=== PATIENT | female | born 1935 | race Caucasian/White ===

== ENCOUNTER 2017-05-21 18:28 | Inpatient (IN) ==
[2017-05-21] MEDS ORDERED: ONDANSETRON 4 MG/2 ML VIAL IV STA (19:26)
[2017-05-21] MEDS ORDERED: FUROSEMIDE 40 MG/4 ML VIAL IV STA (19:26)
[2017-05-21] MEDS ORDERED: PANTOPRAZOLE 40 MG VIAL IV STA (19:26)
[2017-05-21] MEDS ORDERED: ALBUTEROL/IPRATROPIUM 3 ML NEB RESP TX STA (19:26)
[2017-05-21 19:58] LABS: Basophils % 0.3 % (0.0-0.8); Eosinophils # 0.2 10*3/uL (0.0-0.87); Eosinophils % 3.8 % (0.00-10.9); Hemoglobin 13.4 GM/DL (12.0-16.0); Immature Granulocytes % 0.3 %; Immature Granulocytes Absolute 0.02 #; Lymphocytes # 1.9 10*3/uL (1.4-4.0); Lymphocytes % 30.2 % (21.3-54.2); Mean Corpuscular HGB Conc 35.3 GM/DL (32-36); Mean Corpuscular Hemoglobin 35 PG (27-34); Mean Platelet Volume 10.8 FL (9.6-12.0); Monocytes # 1.2 10*3/uL (0.11-0.8); Monocytes % 19.9 % (1.7-12.7); Neutrophils # 2.8 10*3/uL (1.4-7.4); Neutrophils % 45.5 % (38.7-73.9); Platelet Count 120 T/CUMM (130-400); Red Cell Distribution Width 13.2 % (9.3-17.3); White Blood Count 6.1 T/CUMM (4-12)
[2017-05-21 20:04] LABS: INR 2.4
[2017-05-21 20:10] LABS: PT Patient Result 24.1 SECS
[2017-05-21 20:16] LABS: Alanine Aminotransferase 36 U/L (13-56); Albumin 4.2 G/DL (3.4-5.0); Alkaline Phosphatase 84 U/L (45-117); Aspartate Amino Transferase 49 U/L (0-37); Blood Urea Nitrogen 19 MG/DL (7-18); Calcium 8.7 MG/DL (8.5-10.1); Glucose 216 MG/DL (74-106); Magnesium 2.1 MG/DL (1.8-2.4); Osmolality,Calculated 274.4 MOS/KG (273-304); Potassium 4.1 MMOL/L (3.5-5.1); Sodium 133 MMOL/L (136-145); Total Protein 7.9 G/DL (6.4-8.3); Troponin I Only < 0.015 NG/ML (0.00-0.045)
[2017-05-21] MEDS ORDERED: PANTOPRAZOLE 40 MG VIAL IV ONE (21:28)
[2017-05-21] MEDS ORDERED: FUROSEMIDE 20 MG/2 ML VIAL ONE (21:28)
[2017-05-21] MEDS ORDERED: ONDANSETRON 4 MG/2 ML VIAL ONE (21:28)
[2017-05-21] MEDS ORDERED: FUROSEMIDE 40 MG/4 ML VIAL ONE (21:28)
[2017-05-21 22:04] LABS: Eosinophils 3 % (0-10); Lymphocytes 33 % (20-55); Metamyelocytes 1 %; Myelocytes 1 %; Platelet Estimate Decreased; Polychromasia Few; Segmented Neutrophils 54 % (50-85); Total Cells Counted 100
[2017-05-22] MEDS ORDERED: GLUCAGON 1 MG VIAL IM PRN ×2 (02:04→10:42)
[2017-05-22] MEDS ORDERED: DEXTROSE 50% 25 GM/50 ML VIAL IV PRN ×2 (02:04→10:42)
[2017-05-22] MEDS: INSULIN GLARGINE 100 UNIT/ML SUBCUT SCH ×2 (06:21→22:07)
[2017-05-22] MEDS: SODIUM CHLORIDE 0.9% 1,000 ML IV SCH ×2 (06:23→19:46)
[2017-05-22] MEDS: INSULIN LISPRO 100 UNIT/ML SUBCUT SCH ×3 (07:07→18:01)
[2017-05-22] MEDS: FUROSEMIDE 40 MG/4 ML VIAL IV SCH (09:02)
[2017-05-22] MEDS: PANTOPRAZOLE 40 MG VIAL IV SCH (09:03)
[2017-05-22 09:50] LABS: Hematocrit 35.1 VOL% (35.7-47.0); Hemoglobin 12.4 GM/DL (12.0-16.0)
[2017-05-23] MEDS: INSULIN LISPRO 100 UNIT/ML SUBCUT SCH ×3 (02:29→13:35)
[2017-05-23 05:01] LABS: Basophils % 0.1 % (0.0-0.8); Eosinophils # 0.2 10*3/uL (0.0-0.87); Eosinophils % 3.5 % (0.00-10.9); Hematocrit 31.1 VOL% (35.7-47.0); Hemoglobin 10.9 GM/DL (12.0-16.0); Immature Granulocytes % 0.4 %; Immature Granulocytes Absolute 0.03 #; Lymphocytes # 1.9 10*3/uL (1.4-4.0); Lymphocytes % 27.8 % (21.3-54.2); Mean Corpuscular Hemoglobin 36 PG (27-34); Monocytes # 1.7 10*3/uL (0.11-0.8); Monocytes % 24.6 % (1.7-12.7); Neutrophils % 43.6 % (38.7-73.9); Platelet Count 114 T/CUMM (130-400); Red Blood Count 3.05 MC/CUMM (3.8-5.5); Red Cell Distribution Width 13.3 % (9.3-17.3); White Blood Count 6.9 T/CUMM (4-12)
[2017-05-23 05:33] LABS: Calcium 8.4 MG/DL (8.5-10.1); Osmolality,Calculated 281.4 MOS/KG (273-304); Potassium 3.6 MMOL/L (3.5-5.1)
[2017-05-23 07:11] LABS: Anisocytosis Slight; Band Neutrophils 1 % (0-10); Eosinophils 1 % (0-10); Lymphocytes 31 % (20-55); Macrocytosis Slight; Platelet Estimate Decreased; Segmented Neutrophils 42 % (50-85); Total Cells Counted 100
[2017-05-23] MEDS: PANTOPRAZOLE 40 MG VIAL IV SCH (09:15)
[2017-05-23] MEDS: FUROSEMIDE 40 MG/4 ML VIAL IV SCH (09:18)
[2017-05-23] MEDS: SODIUM CHLORIDE 0.9% 1,000 ML IV SCH (09:25)
[2017-05-29 21:08] VITALS: BP 167/84
== END 2017-05-23 17:15 | disposition home or self-care (01) | DRG 813 ==
LOC: N.ED 18:28 → SUATTDRO 05-22 → N.EDINP 05-22 → N.2E 05-22 01:37
PROVIDERS: ADMIT Internal Medicine Infectious Disease; ATTEND Internal Medicine

== ENCOUNTER 2017-06-25 01:30 | Inpatient (IN) ==
[2017-06-25] MEDS ORDERED: ONDANSETRON 4 MG/2 ML VIAL IV STA (02:15)
[2017-06-25] MEDS ORDERED: ONDANSETRON 4 MG/2 ML VIAL ONE (02:39)
[2017-06-25 02:43] LABS: Basophils % 0.1 % (0.0-0.8); Eosinophils # 0.1 10*3/uL (0.0-0.87); Hematocrit 29.9 VOL% (35.7-47.0); Hemoglobin 11.5 GM/DL (12.0-16.0); Immature Granulocytes % 0.9 %; Lymphocytes % 18.6 % (21.3-54.2); Mean Corpuscular HGB Conc 38.5 GM/DL (32-36); Mean Corpuscular Hemoglobin 35 PG (27-34); Mean Corpuscular Volume 90.9 FL (87-102); Mean Platelet Volume 10.8 FL (9.6-12.0); Monocytes # 1.5 10*3/uL (0.11-0.8); Monocytes % 14.3 % (1.7-12.7); Neutrophils % 65.1 % (38.7-73.9); Platelet Count 145 T/CUMM (130-400); Red Blood Count 3.29 MC/CUMM (3.8-5.5); Red Cell Distribution Width 12.5 % (9.3-17.3); White Blood Count 10.8 T/CUMM (4-12)
[2017-06-25 03:12] LABS: Albumin 4.2 G/DL (3.4-5.0); Calcium 8.7 MG/DL (8.5-10.1); Osmolality,Calculated 249.5 MOS/KG (273-304); Potassium 3.1 MMOL/L (3.5-5.1); Total Protein 7.9 G/DL (6.4-8.3); Troponin I Only 0.036 NG/ML (0.00-0.045)
[2017-06-25] MEDS ORDERED: SODIUM CHLORIDE 0.9% 1,000 ML IV STA (03:41)
[2017-06-25] MEDS ORDERED: FUROSEMIDE 40 MG/4 ML VIAL IV STA (04:28)
[2017-06-25] MEDS ORDERED: FUROSEMIDE 40 MG/4 ML VIAL ONE (04:32)
[2017-06-25] MEDS ORDERED: ONDANSETRON 4 MG/2 ML VIAL IV PRN (04:45)
[2017-06-25] MEDS ORDERED: GLUCAGON 1 MG VIAL IM PRN (04:45)
[2017-06-25] MEDS ORDERED: DEXTROSE 50% 25 GM/50 ML VIAL IV PRN (04:45)
[2017-06-25] MEDS ORDERED: NITROGLYCERIN SL 0.4 MG TABLET SL PRN (04:54)
[2017-06-25] MEDS ORDERED: POTASSIUM CHLORIDE 20 MEQ TABLET PO ONE ×2 (04:57→05:03)
[2017-06-25 05:50] LABS: Apearance,Urine CLEAR (Clear); Bilirubin,Urine Negative (Negative); Blood, Urine Small mg/dL (Negative); Glucose,Urine (UA) 50 mg/dL (Negative); Ketones,Urine Negative (Negative); Mucus,Urine Occasional /LPF (Occasional); Nitrite,Urine Negative (Negative); Protein,Urine Negative; RBC,Urine <1 /HPF (0-4); Urine Color Straw (Yellow); Urine Specific Gravity 1.013 (1.001-1.035); Urine Urobilinogen < 2.0 EU/DL (0.2-1.0); WBC,Urine <1 /HPF (0-6)
[2017-06-25 09:00] LABS: Basophils % 0.1 % (0.0-0.8); Eosinophils # 0.1 10*3/uL (0.0-0.87); Eosinophils % 0.9 % (0.00-10.9); Hemoglobin 12.2 GM/DL (12.0-16.0); Immature Granulocytes % 0.6 %; Immature Granulocytes Absolute 0.06 #; Lymphocytes # 1.5 10*3/uL (1.4-4.0); Lymphocytes % 15.9 % (21.3-54.2); Mean Corpuscular HGB Conc 38.1 GM/DL (32-36); Mean Corpuscular Hemoglobin 35 PG (27-34); Mean Corpuscular Volume 91.2 FL (87-102); Mean Platelet Volume 10.3 FL (9.6-12.0); Monocytes # 1.7 10*3/uL (0.11-0.8); Monocytes % 17.1 % (1.7-12.7); Neutrophils # 6.3 10*3/uL (1.4-7.4); Neutrophils % 65.4 % (38.7-73.9); Platelet Count 139 T/CUMM (130-400); Red Blood Count 3.51 MC/CUMM (3.8-5.5); Red Cell Distribution Width 12.6 % (9.3-17.3); White Blood Count 9.6 T/CUMM (4-12)
[2017-06-25 09:06] LABS: INR 2.9
[2017-06-25 09:11] LABS: PT Patient Result 29.4 SECS
[2017-06-25 09:24] LABS: Eosinophils 1 % (0-10); Hypochromasia 1+; Lymphocytes 11 % (20-55); Macrocytosis 1+; Platelet Estimate Decreased; Segmented Neutrophils 77 % (50-85); Total Cells Counted 100
[2017-06-25] MEDS: INSULIN LISPRO 100 UNIT/ML SUBCUT SCH ×4 (09:35→21:47)
[2017-06-25] MEDS: ASCORBIC ACID 500 MG TABLET PO SCH (09:37)
[2017-06-25] MEDS: GLIMEPIRIDE 4 MG TABLET PO SCH (09:37)
[2017-06-25] MEDS: ASPIRIN EC 81 MG TABLET PO SCH (09:37)
[2017-06-25] MEDS: CARVEDILOL 12.5 MG TABLET PO SCH (09:37)
[2017-06-25] MEDS: PANTOPRAZOLE 40 MG TABLET PO SCH (09:37)
[2017-06-25 09:49] LABS: Calcium 9.2 MG/DL (8.5-10.1); Free T4 (Free Thyroxine) 1.64 NG/DL (0.76-1.46); Magnesium 1.8 MG/DL (1.8-2.4); Osmolality,Calculated 249.5 MOS/KG (273-304); Potassium 3.6 MMOL/L (3.5-5.1); Thyroid Stimulating Hormone 0.716 uIU/ml (0.358-3.74)
[2017-06-25] MEDS ORDERED: FUROSEMIDE 40 MG/4 ML VIAL IV SCH (16:00)
[2017-06-25] MEDS: WARFARIN 5 MG TABLET PO SCH (17:34)
[2017-06-25] MEDS: SODIUM CHLOR 0.9% KCL 20 MEQ 20 MEQ/1,000 ML BAG IV SCH (17:34)
[2017-06-25] MEDS: ATORVASTATIN 40 MG TABLET PO SCH (21:47)
[2017-06-25] MEDS: INSULIN GLARGINE 100 UNIT/ML SUBCUT SCH (21:47)
[2017-06-25] MEDS: LOSARTAN 50 MG TABLET PO SCH (21:48)
[2017-06-26] MEDS: SODIUM CHLOR 0.9% KCL 20 MEQ 20 MEQ/1,000 ML BAG IV SCH ×3 (06:23→22:09)
[2017-06-26 08:11] LABS: Osmolality,Calculated 268.4 MOS/KG (273-304)
[2017-06-26 08:20] LABS: Potassium 6.7 MMOL/L (3.5-5.1)
[2017-06-26] MEDS ORDERED: FUROSEMIDE 40 MG/4 ML VIAL IV ONE (08:36)
[2017-06-26] MEDS: CARVEDILOL 12.5 MG TABLET PO SCH (08:44)
[2017-06-26] MEDS: PANTOPRAZOLE 40 MG TABLET PO SCH (08:45)
[2017-06-26] MEDS: ASPIRIN EC 81 MG TABLET PO SCH (08:45)
[2017-06-26] MEDS: ASCORBIC ACID 500 MG TABLET PO SCH (08:45)
[2017-06-26] MEDS: GLIMEPIRIDE 4 MG TABLET PO SCH (08:45)
[2017-06-26] MEDS ORDERED: FUROSEMIDE 40 MG/4 ML VIAL IV SCH (09:00)
[2017-06-26] MEDS ORDERED: SODIUM CHLORIDE 0.9% 1,000 ML IV SCH (09:00)
[2017-06-26 09:04] LABS: Calcium 8.8 MG/DL (8.5-10.1); Osmolality,Calculated 259.2 MOS/KG (273-304); Potassium 3.9 MMOL/L (3.5-5.1)
[2017-06-26] MEDS: INSULIN LISPRO 100 UNIT/ML SUBCUT SCH ×4 (10:46→22:00)
[2017-06-26 10:48] LABS: INR 2.7
[2017-06-26 10:56] LABS: PT Patient Result 27.3 SECS
[2017-06-26] MEDS: WARFARIN 5 MG TABLET PO SCH (17:04)
[2017-06-26] MEDS: INSULIN GLARGINE 100 UNIT/ML SUBCUT SCH (21:59)
[2017-06-26] MEDS: LOSARTAN 50 MG TABLET PO SCH (21:59)
[2017-06-26] MEDS: ATORVASTATIN 40 MG TABLET PO SCH (21:59)
[2017-06-27] MEDS: SODIUM CHLOR 0.9% KCL 20 MEQ 20 MEQ/1,000 ML BAG IV SCH ×3 (00:39→12:30)
[2017-06-27 05:02] LABS: Basophils % 0.3 % (0.0-0.8); Eosinophils # 0.2 10*3/uL (0.0-0.87); Eosinophils % 2.6 % (0.00-10.9); Hematocrit 26.8 VOL% (35.7-47.0); Hemoglobin 9.7 GM/DL (12.0-16.0); Immature Granulocytes % 0.7 %; Immature Granulocytes Absolute 0.05 #; Lymphocytes # 1.8 10*3/uL (1.4-4.0); Lymphocytes % 24.2 % (21.3-54.2); Mean Corpuscular HGB Conc 36.2 GM/DL (32-36); Mean Corpuscular Hemoglobin 35 PG (27-34); Mean Corpuscular Volume 96.4 FL (87-102); Mean Platelet Volume 10.8 FL (9.6-12.0); Monocytes # 1.7 10*3/uL (0.11-0.8); Monocytes % 23.2 % (1.7-12.7); Neutrophils # 3.6 10*3/uL (1.4-7.4); Platelet Count 113 T/CUMM (130-400); Red Blood Count 2.78 MC/CUMM (3.8-5.5); White Blood Count 7.4 T/CUMM (4-12)
[2017-06-27 05:19] LABS: INR 2.9
[2017-06-27 05:30] LABS: Calcium 8.2 MG/DL (8.5-10.1); Osmolality,Calculated 265.7 MOS/KG (273-304); Potassium 3.5 MMOL/L (3.5-5.1)
[2017-06-27 05:31] LABS: Calcium 8.3 MG/DL (8.5-10.1); Magnesium 1.9 MG/DL (1.8-2.4); Osmolality,Calculated 260.9 MOS/KG (273-304); Potassium 3.6 MMOL/L (3.5-5.1)
[2017-06-27 06:14] LABS: PT Patient Result 29.9 SECS
[2017-06-27 06:36] LABS: Eosinophils 1 % (0-10); Hypochromasia 1+; Lymphocytes 21 % (20-55); Platelet Estimate Decreased; Segmented Neutrophils 62 % (50-85); Total Cells Counted 100
[2017-06-27] MEDS: INSULIN LISPRO 100 UNIT/ML SUBCUT SCH ×4 (08:22→21:43)
[2017-06-27] MEDS: CARVEDILOL 12.5 MG TABLET PO SCH (08:58)
[2017-06-27] MEDS: FUROSEMIDE 40 MG/4 ML VIAL IV SCH (08:58)
[2017-06-27] MEDS: PANTOPRAZOLE 40 MG TABLET PO SCH (08:58)
[2017-06-27] MEDS: ASCORBIC ACID 500 MG TABLET PO SCH (08:58)
[2017-06-27] MEDS: GLIMEPIRIDE 4 MG TABLET PO SCH (08:58)
[2017-06-27] MEDS: ASPIRIN EC 81 MG TABLET PO SCH (08:58)
[2017-06-27] MEDS: POTASSIUM CHLORIDE 20 MEQ TABLET PO SCH ×2 (09:51→21:45)
[2017-06-27] MEDS: LOSARTAN 50 MG TABLET PO SCH (21:45)
[2017-06-27] MEDS: INSULIN GLARGINE 100 UNIT/ML SUBCUT SCH (21:45)
[2017-06-27] MEDS: ATORVASTATIN 40 MG TABLET PO SCH (21:45)
[2017-06-28] MEDS: SODIUM CHLOR 0.9% KCL 20 MEQ 20 MEQ/1,000 ML BAG IV SCH (00:20)
[2017-06-28 06:09] LABS: INR 2.4
[2017-06-28 06:16] LABS: Basophils % 0.2 % (0.0-0.8); Eosinophils # 0.2 10*3/uL (0.0-0.87); Eosinophils % 4.3 % (0.00-10.9); Hematocrit 25.4 VOL% (35.7-47.0); Hemoglobin 9.1 GM/DL (12.0-16.0); Immature Granulocytes % 0.7 %; Immature Granulocytes Absolute 0.04 #; Lymphocytes # 1.5 10*3/uL (1.4-4.0); Lymphocytes % 28.1 % (21.3-54.2); Mean Corpuscular HGB Conc 35.8 GM/DL (32-36); Mean Corpuscular Hemoglobin 35 PG (27-34); Mean Corpuscular Volume 98.8 FL (87-102); Mean Platelet Volume 10.9 FL (9.6-12.0); Monocytes # 1.2 10*3/uL (0.11-0.8); Monocytes % 21.6 % (1.7-12.7); Neutrophils # 2.4 10*3/uL (1.4-7.4); Neutrophils % 45.1 % (38.7-73.9); Platelet Count 115 T/CUMM (130-400); Red Blood Count 2.57 MC/CUMM (3.8-5.5); Red Cell Distribution Width 13.3 % (9.3-17.3); White Blood Count 5.4 T/CUMM (4-12)
[2017-06-28 06:17] LABS: Magnesium 1.8 MG/DL (1.8-2.4); Osmolality,Calculated 271.1 MOS/KG (273-304); Potassium 3.8 MMOL/L (3.5-5.1)
[2017-06-28 06:26] LABS: PT Patient Result 24.4 SECS
[2017-06-28 07:38] LABS: Atypical Lymphocytes Moderate; Band Neutrophils 1 % (0-10); Eosinophils 5 % (0-10); Hypochromasia 1+; Lymphocytes 25 % (20-55); Segmented Neutrophils 52 % (50-85); Total Cells Counted 100
[2017-06-28 07:39] LABS: Platelet Estimate Decreased; Polychromasia Slight
[2017-06-28] MEDS: INSULIN LISPRO 100 UNIT/ML SUBCUT SCH ×4 (08:00→21:56)
[2017-06-28] MEDS: PANTOPRAZOLE 40 MG TABLET PO SCH (10:13)
[2017-06-28] MEDS: GLIMEPIRIDE 4 MG TABLET PO SCH (10:13)
[2017-06-28] MEDS: POTASSIUM CHLORIDE 20 MEQ TABLET PO SCH ×2 (10:13→21:52)
[2017-06-28] MEDS: FUROSEMIDE 40 MG/4 ML VIAL IV SCH (10:13)
[2017-06-28] MEDS: CARVEDILOL 12.5 MG TABLET PO SCH (10:13)
[2017-06-28] MEDS: ASPIRIN EC 81 MG TABLET PO SCH (10:14)
[2017-06-28] MEDS: LOSARTAN 50 MG TABLET PO SCH (21:51)
[2017-06-28] MEDS: ATORVASTATIN 40 MG TABLET PO SCH (21:52)
[2017-06-28] MEDS: INSULIN GLARGINE 100 UNIT/ML SUBCUT SCH (21:56)
[2017-06-29 05:45] LABS: Basophils % 0.3 % (0.0-0.8); Eosinophils # 0.3 10*3/uL (0.0-0.87); Eosinophils % 3.9 % (0.00-10.9); Hematocrit 28.3 VOL% (35.7-47.0); INR 1.8; Immature Granulocytes % 0.5 %; Immature Granulocytes Absolute 0.04 #; Lymphocytes # 2.2 10*3/uL (1.4-4.0); Lymphocytes % 29.2 % (21.3-54.2); Mean Corpuscular HGB Conc 35.3 GM/DL (32-36); Mean Corpuscular Hemoglobin 35 PG (27-34); Mean Corpuscular Volume 99.3 FL (87-102); Mean Platelet Volume 10.7 FL (9.6-12.0); Monocytes # 1.5 10*3/uL (0.11-0.8); Monocytes % 20.5 % (1.7-12.7); Neutrophils # 3.4 10*3/uL (1.4-7.4); Neutrophils % 45.6 % (38.7-73.9); PT Patient Result 18.7 SECS; Platelet Count 135 T/CUMM (130-400); Red Blood Count 2.85 MC/CUMM (3.8-5.5); Red Cell Distribution Width 13.2 % (9.3-17.3); White Blood Count 7.4 T/CUMM (4-12)
[2017-06-29 06:10] LABS: Calcium 8.9 MG/DL (8.5-10.1); Magnesium 1.9 MG/DL (1.8-2.4); Osmolality,Calculated 268.2 MOS/KG (273-304); Potassium 3.7 MMOL/L (3.5-5.1)
[2017-06-29 06:26] LABS: Atypical Lymphocytes Few; Eosinophils 7 % (0-10); Giant Platelets Few; Hypochromasia 1+; Lymphocytes 23 % (20-55); Ovalocytes Slight; Platelet Estimate Normal; Segmented Neutrophils 54 % (50-85); Total Cells Counted 100
[2017-06-29 07:00] LABS: Albumin 3.4 G/DL (3.4-5.0); Bilirubin,Total 0.8 MG/DL (0.2-1.0); Calcium 8.7 MG/DL (8.5-10.1); Osmolality,Calculated 267.4 MOS/KG (273-304); Potassium 3.7 MMOL/L (3.5-5.1); Total Protein 6.7 G/DL (6.4-8.3)
[2017-06-29] MEDS: INSULIN LISPRO 100 UNIT/ML SUBCUT SCH ×3 (08:03→17:15)
[2017-06-29] MEDS: ASPIRIN EC 81 MG TABLET PO SCH (08:38)
[2017-06-29] MEDS: GLIMEPIRIDE 4 MG TABLET PO SCH (08:38)
[2017-06-29] MEDS: POTASSIUM CHLORIDE 20 MEQ TABLET PO SCH (08:38)
[2017-06-29] MEDS: CARVEDILOL 12.5 MG TABLET PO SCH (08:38)
[2017-06-29] MEDS: PANTOPRAZOLE 40 MG TABLET PO SCH (08:38)
[2017-06-29] MEDS: FUROSEMIDE 40 MG/4 ML VIAL IV SCH (08:38)
[2017-06-29 17:01] VITALS: BP 109/59
== END 2017-06-29 17:18 | disposition home or self-care (01) | DRG 292 ==
LOC: N.ED 01:30 → SUATTDRO 04:44 → N.EDINP 04:44 → N.TELES 05:01
PROVIDERS: ADMIT Internal Medicine; ATTEND Internal Medicine

== ENCOUNTER 2017-07-11 07:36 | Inpatient (IN) ==
[2017-07-11] MEDS ORDERED: ONDANSETRON 4 MG/2 ML VIAL IV STA (07:59)
[2017-07-11] MEDS ORDERED: ONDANSETRON 4 MG/2 ML VIAL ONE ×2 (08:38→12:34)
[2017-07-11 09:26] LABS: Bilirubin,Total 1.5 MG/DL (0.2-1.0); Osmolality,Calculated 249.2 MOS/KG (273-304); Potassium 3.1 MMOL/L (3.5-5.1); Total Protein 8.7 G/DL (6.4-8.3)
[2017-07-11 09:29] LABS: Calcium 9.5 MG/DL (8.5-10.1)
[2017-07-11] MEDS ORDERED: SODIUM CHLORIDE 0.9% 1,000 ML IV STA (09:38)
[2017-07-11 09:43] LABS: Troponin I Only 0.015 NG/ML (0.00-0.045)
[2017-07-11 10:20] LABS: Basophils % 0.2 % (0.0-0.8); Eosinophils # 0.2 10*3/uL (0.0-0.87); Eosinophils % 1.6 % (0.00-10.9); Hematocrit 31.6 VOL% (35.7-47.0); Hemoglobin 11.6 GM/DL (12.0-16.0); Immature Granulocytes % 0.9 %; Immature Granulocytes Absolute 0.08 #; Lymphocytes % 11.3 % (21.3-54.2); Mean Corpuscular HGB Conc 36.7 GM/DL (32-36); Mean Corpuscular Hemoglobin 35 PG (27-34); Mean Corpuscular Volume 94.6 FL (87-102); Mean Platelet Volume 10.1 FL (9.6-12.0); Monocytes # 2.4 10*3/uL (0.11-0.8); Monocytes % 26.1 % (1.7-12.7); Neutrophils # 5.5 10*3/uL (1.4-7.4); Neutrophils % 59.9 % (38.7-73.9); Platelet Count 171 T/CUMM (130-400); Red Blood Count 3.34 MC/CUMM (3.8-5.5); White Blood Count 9.2 T/CUMM (4-12)
[2017-07-11 11:08] LABS: Burr Cells Slight; Hypochromasia 2+; Lymphocytes 13 % (20-55); Macrocytosis 1+; Platelet Estimate Adequate; Segmented Neutrophils 64 % (50-85); Total Cells Counted 100
[2017-07-11] MEDS ORDERED: ONDANSETRON 4 MG/2 ML VIAL IV PRN (11:19)
[2017-07-11] MEDS ORDERED: POTASSIUM CHLORIDE 20 MEQ TABLET PO ONE (12:06)
[2017-07-11] MEDS ORDERED: PANTOPRAZOLE 40 MG TABLET PO ONE (12:06)
[2017-07-11] MEDS: POTASSIUM CHLORIDE 20 MEQ TABLET PO PRN (12:10)
[2017-07-11] MEDS: PANTOPRAZOLE 40 MG TABLET PO SCH (12:10)
[2017-07-11] MEDS: SODIUM CHLORIDE 0.9% 1,000 ML IV SCH (16:51)
[2017-07-11] MEDS: INSULIN GLARGINE 100 UNIT/ML SUBCUT SCH (20:40)
[2017-07-11] MEDS: ATORVASTATIN 40 MG TABLET PO SCH (20:41)
[2017-07-12] MEDS: SODIUM CHLORIDE 0.9% 1,000 ML IV SCH (00:02)
[2017-07-12 06:36] LABS: Basophils % 0.2 % (0.0-0.8); Eosinophils % 0.4 % (0.00-10.9); Hematocrit 27.6 VOL% (35.7-47.0); Hemoglobin 9.8 GM/DL (12.0-16.0); Immature Granulocytes % 0.9 %; Immature Granulocytes Absolute 0.07 #; Lymphocytes % 12.3 % (21.3-54.2); Mean Corpuscular HGB Conc 35.5 GM/DL (32-36); Mean Corpuscular Hemoglobin 34 PG (27-34); Mean Corpuscular Volume 95.8 FL (87-102); Mean Platelet Volume 10.9 FL (9.6-12.0); Monocytes # 2.7 10*3/uL (0.11-0.8); Monocytes % 33.6 % (1.7-12.7); Neutrophils # 4.2 10*3/uL (1.4-7.4); Neutrophils % 52.6 % (38.7-73.9); Platelet Count 131 T/CUMM (130-400); Red Blood Count 2.88 MC/CUMM (3.8-5.5); Red Cell Distribution Width 13.2 % (9.3-17.3)
[2017-07-12 06:45] LABS: INR 2.4
[2017-07-12 06:57] LABS: Calcium 8.6 MG/DL (8.5-10.1); Osmolality,Calculated 255.4 MOS/KG (273-304); Potassium 3.2 MMOL/L (3.5-5.1)
[2017-07-12] MEDS ORDERED: MAGNESIUM SULF RIDER 4 GM in PREMIX 1 EACH IV ONE (08:18)
[2017-07-12] MEDS: PANTOPRAZOLE 40 MG TABLET PO SCH (09:38)
[2017-07-12] MEDS: POTASSIUM CHLORIDE 20 MEQ/15 ML UDCUP PER TUBE PRN ×5 (09:38→21:38)
[2017-07-12] MEDS: LOSARTAN 50 MG TABLET PO SCH (09:39)
[2017-07-12] MEDS: CARVEDILOL 12.5 MG TABLET PO SCH (09:39)
[2017-07-12] MEDS: FUROSEMIDE 40 MG TABLET PO SCH (09:39)
[2017-07-12] MEDS: ASPIRIN EC 81 MG TABLET PO SCH (09:39)
[2017-07-12] MEDS ORDERED: MAGNESIUM SULF RIDER 2 GM in PREMIX 1 EACH IV PRN (11:17)
[2017-07-12] MEDS ORDERED: MAGNESIUM SULF RIDER 4 GM in PREMIX 1 EACH IV PRN (11:17)
[2017-07-12 11:57] LABS: Hypochromasia 1+; Lymphocytes 10 % (20-55); Platelet Estimate Decreased; Segmented Neutrophils 71 % (50-85); Spherocytes Few; Total Cells Counted 100
[2017-07-12] MEDS ORDERED: FUROSEMIDE 20 MG TABLET PO SCH (18:00)
[2017-07-12] MEDS: WARFARIN 5 MG TABLET PO SCH (18:30)
[2017-07-12] MEDS: ATORVASTATIN 40 MG TABLET PO SCH (21:37)
[2017-07-12] MEDS: guaiFENesin 200 MG/10 ML UDCUP PO PRN (21:37)
[2017-07-12] MEDS: INSULIN GLARGINE 100 UNIT/ML SUBCUT SCH (21:38)
[2017-07-12] MEDS: POTASSIUM CHLORIDE 20 MEQ TABLET PO PRN (23:45)
[2017-07-13] MEDS: POTASSIUM CHLORIDE 20 MEQ TABLET PO PRN (01:53)
[2017-07-13 06:39] LABS: Basophils % 0.2 % (0.0-0.8); Eosinophils # 0.1 10*3/uL (0.0-0.87); Eosinophils % 1.4 % (0.00-10.9); Hematocrit 26.9 VOL% (35.7-47.0); Hemoglobin 9.9 GM/DL (12.0-16.0); Immature Granulocytes % 0.6 %; Immature Granulocytes Absolute 0.04 #; Lymphocytes # 1.4 10*3/uL (1.4-4.0); Lymphocytes % 21.1 % (21.3-54.2); Mean Corpuscular HGB Conc 36.8 GM/DL (32-36); Mean Corpuscular Hemoglobin 35 PG (27-34); Mean Corpuscular Volume 95.7 FL (87-102); Mean Platelet Volume 10.8 FL (9.6-12.0); Monocytes # 2.3 10*3/uL (0.11-0.8); Monocytes % 36.2 % (1.7-12.7); Neutrophils # 2.6 10*3/uL (1.4-7.4); Neutrophils % 40.5 % (38.7-73.9); Platelet Count 121 T/CUMM (130-400); Red Blood Count 2.81 MC/CUMM (3.8-5.5); Red Cell Distribution Width 13.7 % (9.3-17.3); White Blood Count 6.5 T/CUMM (4-12)
[2017-07-13 07:16] LABS: Calcium 8.6 MG/DL (8.5-10.1); Osmolality,Calculated 255.4 MOS/KG (273-304); Potassium 4.1 MMOL/L (3.5-5.1)
[2017-07-13 07:32] LABS: Band Neutrophils 3 % (0-10); Eosinophils 1 % (0-10); Lymphocytes 41 % (20-55); Segmented Neutrophils 49 % (50-85); Total Cells Counted 100
[2017-07-13 07:33] LABS: Macrocytosis 1+; Platelet Estimate Normal
[2017-07-13] MEDS: PANTOPRAZOLE 40 MG TABLET PO SCH (10:47)
[2017-07-13] MEDS: FUROSEMIDE 40 MG TABLET PO SCH (10:47)
[2017-07-13] MEDS: ASPIRIN EC 81 MG TABLET PO SCH (10:47)
[2017-07-13] MEDS: CARVEDILOL 12.5 MG TABLET PO SCH (10:47)
[2017-07-13] MEDS: LOSARTAN 50 MG TABLET PO SCH (10:51)
[2017-07-13] MEDS: guaiFENesin 200 MG/10 ML UDCUP PO PRN (13:45)
[2017-07-13] MEDS: WARFARIN 5 MG TABLET PO SCH (18:36)
[2017-07-13] MEDS: SODIUM CHLORIDE 0.9% 1,000 ML IV SCH (18:42)
[2017-07-13 21:40] LABS: Apearance,Urine CLOUDY (Clear); Bacteria,Urine Many /HPF (Few); Bilirubin,Urine Negative (Negative); Blood, Urine Large mg/dL (Negative); Glucose,Urine (UA) Negative (Negative); Ketones,Urine Negative (Negative); Nitrite,Urine Negative (Negative); Protein,Urine 100 MG/DL; RBC,Urine 126 /HPF (0-4); Urine Color Dark yellow (Yellow); Urine Specific Gravity 1.009 (1.001-1.035); Urine Urobilinogen < 2.0 EU/DL (0.2-1.0); WBC,Urine 759 /HPF (0-6)
[2017-07-13] MEDS: INSULIN GLARGINE 100 UNIT/ML SUBCUT SCH (22:26)
[2017-07-13] MEDS: ATORVASTATIN 40 MG TABLET PO SCH (22:26)
[2017-07-14 06:49] LABS: Basophils % 0.3 % (0.0-0.8); Eosinophils # 0.2 10*3/uL (0.0-0.87); Eosinophils % 3.8 % (0.00-10.9); Hematocrit 29.6 VOL% (35.7-47.0); Hemoglobin 10.4 GM/DL (12.0-16.0); Immature Granulocytes % 0.5 %; Immature Granulocytes Absolute 0.03 #; Lymphocytes # 1.1 10*3/uL (1.4-4.0); Lymphocytes % 18.1 % (21.3-54.2); Mean Corpuscular HGB Conc 35.1 GM/DL (32-36); Mean Corpuscular Hemoglobin 34 PG (27-34); Mean Platelet Volume 10.8 FL (9.6-12.0); Monocytes # 1.9 10*3/uL (0.11-0.8); Monocytes % 31.1 % (1.7-12.7); Neutrophils # 2.8 10*3/uL (1.4-7.4); Neutrophils % 46.2 % (38.7-73.9); Platelet Count 134 T/CUMM (130-400); Red Blood Count 3.05 MC/CUMM (3.8-5.5); Red Cell Distribution Width 13.5 % (9.3-17.3)
[2017-07-14 07:18] LABS: Calcium 8.7 MG/DL (8.5-10.1); Magnesium 1.9 MG/DL (1.8-2.4); Osmolality,Calculated 259.9 MOS/KG (273-304); Potassium 3.3 MMOL/L (3.5-5.1)
[2017-07-14 07:23] LABS: Lymphocytes 15 % (20-55); Segmented Neutrophils 56 % (50-85); Total Cells Counted 100
[2017-07-14 07:24] LABS: Hypochromasia 1+; Platelet Estimate Adequate; Target Cells Slight
[2017-07-14] MEDS: PANTOPRAZOLE 40 MG TABLET PO SCH (10:48)
[2017-07-14] MEDS: ASPIRIN EC 81 MG TABLET PO SCH (10:49)
[2017-07-14] MEDS: CARVEDILOL 12.5 MG TABLET PO SCH (10:49)
[2017-07-14] MEDS: WARFARIN 5 MG TABLET PO SCH (17:10)
[2017-07-14] MEDS: SODIUM CHLORIDE 0.9% 1,000 ML IV SCH ×2 (17:11→17:12)
[2017-07-14] MEDS: INSULIN GLARGINE 100 UNIT/ML SUBCUT SCH (21:58)
[2017-07-14] MEDS: ATORVASTATIN 40 MG TABLET PO SCH (21:58)
[2017-07-15 06:16] LABS: Basophils % 0.4 % (0.0-0.8); Eosinophils # 0.2 10*3/uL (0.0-0.87); Eosinophils % 4.7 % (0.00-10.9); Hematocrit 30.1 VOL% (35.7-47.0); Hemoglobin 10.6 GM/DL (12.0-16.0); Immature Granulocytes % 0.8 %; Immature Granulocytes Absolute 0.04 #; Lymphocytes # 1.3 10*3/uL (1.4-4.0); Lymphocytes % 26.6 % (21.3-54.2); Mean Corpuscular HGB Conc 35.2 GM/DL (32-36); Mean Corpuscular Hemoglobin 34 PG (27-34); Mean Corpuscular Volume 96.8 FL (87-102); Mean Platelet Volume 10.7 FL (9.6-12.0); Monocytes # 1.4 10*3/uL (0.11-0.8); Monocytes % 28.9 % (1.7-12.7); Neutrophils # 1.9 10*3/uL (1.4-7.4); Neutrophils % 38.6 % (38.7-73.9); Platelet Count 141 T/CUMM (130-400); Red Blood Count 3.11 MC/CUMM (3.8-5.5); Red Cell Distribution Width 13.9 % (9.3-17.3); White Blood Count 4.9 T/CUMM (4-12)
[2017-07-15 06:41] LABS: Calcium 8.8 MG/DL (8.5-10.1); Osmolality,Calculated 267.4 MOS/KG (273-304); Potassium 3.6 MMOL/L (3.5-5.1)
[2017-07-15 06:44] LABS: Band Neutrophils 1 % (0-10); Eosinophils 6 % (0-10); Hypochromasia 1+; Lymphocytes 27 % (20-55); Segmented Neutrophils 44 % (50-85); Total Cells Counted 100
[2017-07-15 06:45] LABS: Platelet Estimate Adequate
[2017-07-15] MEDS: CARVEDILOL 12.5 MG TABLET PO SCH (08:55)
[2017-07-15] MEDS: SODIUM CHLORIDE 0.9% 1,000 ML IV SCH ×2 (08:55→12:17)
[2017-07-15] MEDS: ASPIRIN EC 81 MG TABLET PO SCH (08:55)
[2017-07-15] MEDS: PANTOPRAZOLE 40 MG TABLET PO SCH (08:55)
[2017-07-15 12:01] VITALS: BP 102/52
== END 2017-07-15 14:33 | disposition home or self-care (01) | DRG 640 ==
LOC: N.ED 07:36 → N.EDINP 10:38 → N.5E 12:44
PROVIDERS: ADMIT Internal Medicine; ATTEND Internal Medicine

== ENCOUNTER 2017-08-04 08:03 | Inpatient (IN) ==
[2017-08-04] MEDS ORDERED: PANTOPRAZOLE 40 MG VIAL IV STA (08:35)
[2017-08-04 09:07] LABS: Basophils % 0.3 % (0.0-0.8); Eosinophils # 0.3 10*3/uL (0.0-0.87); Eosinophils % 4.7 % (0.00-10.9); Hematocrit 30.8 VOL% (35.7-47.0); Hemoglobin 10.4 GM/DL (12.0-16.0); Immature Granulocytes Absolute 0.07 #; Lymphocytes # 1.3 10*3/uL (1.4-4.0); Lymphocytes % 18.1 % (21.3-54.2); Mean Corpuscular HGB Conc 33.8 GM/DL (32-36); Mean Corpuscular Hemoglobin 34 PG (27-34); Mean Platelet Volume 10.4 FL (9.6-12.0); Monocytes # 1.3 10*3/uL (0.11-0.8); Monocytes % 18.3 % (1.7-12.7); Neutrophils % 57.6 % (38.7-73.9); Platelet Count 172 T/CUMM (130-400); Red Blood Count 3.08 MC/CUMM (3.8-5.5); Red Cell Distribution Width 13.8 % (9.3-17.3)
[2017-08-04] MEDS ORDERED: PANTOPRAZOLE 40 MG VIAL IV ONE (09:08)
[2017-08-04 09:17] LABS: INR 1.4; PT Patient Result 14.1 SECS; Partial Thromboplastin Time 34.8 SECS (0-40)
[2017-08-04 09:30] LABS: Eosinophils 5 % (0-10); Hypochromasia 1+; Lymphocytes 23 % (20-55); Segmented Neutrophils 56 % (50-85); Total Cells Counted 100
[2017-08-04 09:31] LABS: Macrocytosis Slight; Platelet Estimate Adequate
[2017-08-04 09:41] LABS: Bilirubin,Total 1.3 MG/DL (0.2-1.0); Calcium 9.2 MG/DL (8.5-10.1); Osmolality,Calculated 272.4 MOS/KG (273-304); Potassium 3.9 MMOL/L (3.5-5.1); Total Protein 7.8 G/DL (6.4-8.3)
[2017-08-04] MEDS ORDERED: DEXTROSE 50% 25 GM/50 ML VIAL IV PRN (11:03)
[2017-08-04] MEDS ORDERED: GLUCAGON 1 MG VIAL IM PRN (11:03)
[2017-08-04] MEDS ORDERED: ACETAMINOPHEN 325 MG TABLET PO PRN (11:03)
[2017-08-04] MEDS: SODIUM CHLORIDE 0.9% 1,000 ML IV SCH (13:53)
[2017-08-04] MEDS: cefTRIAXone 1,000 MG in SYRINGE 1 EACH IV SCH (13:53)
[2017-08-04] MEDS: INSULIN LISPRO 100 UNIT/ML SUBCUT SCH ×3 (13:53→20:35)
[2017-08-04] MEDS: AZITHROMYCIN INJ 500 MG in SODIUM CHLORIDE 0.9% 250 ML IV SCH (13:54)
[2017-08-05] MEDS: SODIUM CHLORIDE 0.9% 1,000 ML IV SCH ×2 (03:43→20:33)
[2017-08-05 05:45] LABS: Basophils % 0.3 % (0.0-0.8); Eosinophils # 0.2 10*3/uL (0.0-0.87); Eosinophils % 2.9 % (0.00-10.9); Hematocrit 29.1 VOL% (35.7-47.0); Hemoglobin 9.8 GM/DL (12.0-16.0); Immature Granulocytes Absolute 0.06 #; Lymphocytes # 1.3 10*3/uL (1.4-4.0); Lymphocytes % 19.9 % (21.3-54.2); Mean Corpuscular HGB Conc 33.7 GM/DL (32-36); Mean Corpuscular Hemoglobin 34 PG (27-34); Mean Corpuscular Volume 101.7 FL (87-102); Mean Platelet Volume 10.7 FL (9.6-12.0); Monocytes # 1.2 10*3/uL (0.11-0.8); Monocytes % 19.4 % (1.7-12.7); Neutrophils # 3.6 10*3/uL (1.4-7.4); Neutrophils % 56.5 % (38.7-73.9); Platelet Count 146 T/CUMM (130-400); Red Blood Count 2.86 MC/CUMM (3.8-5.5); Red Cell Distribution Width 13.9 % (9.3-17.3); White Blood Count 6.3 T/CUMM (4-12)
[2017-08-05 06:06] LABS: Eosinophils 2 % (0-10); Giant Platelets Few; Hypochromasia 1+; Lymphocytes 14 % (20-55); Ovalocytes Slight; Platelet Estimate Normal; Segmented Neutrophils 66 % (50-85); Total Cells Counted 100
[2017-08-05 06:07] LABS: Macrocytosis Slight
[2017-08-05 06:16] LABS: Calcium 8.4 MG/DL (8.5-10.1); Magnesium 1.8 MG/DL (1.8-2.4); Osmolality,Calculated 281.5 MOS/KG (273-304); Potassium 3.9 MMOL/L (3.5-5.1)
[2017-08-05] MEDS: INSULIN LISPRO 100 UNIT/ML SUBCUT SCH ×4 (08:36→20:34)
[2017-08-05] MEDS: cefTRIAXone 1,000 MG in SYRINGE 1 EACH IV SCH (12:11)
[2017-08-05] MEDS: AZITHROMYCIN INJ 500 MG in SODIUM CHLORIDE 0.9% 250 ML IV SCH (13:58)
[2017-08-05] MEDS: ONDANSETRON 4 MG/2 ML VIAL IV PRN ×2 (15:50→21:16)
[2017-08-05] MEDS ORDERED: FUROSEMIDE 20 MG/2 ML VIAL IV ONE (21:30)
[2017-08-05 21:57] LABS: Basophils % 0.2 % (0.0-0.8); Eosinophils # 0.1 10*3/uL (0.0-0.87); Eosinophils % 0.6 % (0.00-10.9); Hematocrit 34.6 VOL% (35.7-47.0); Hemoglobin 11.2 GM/DL (12.0-16.0); Immature Granulocytes % 1.6 %; Lymphocytes % 23.6 % (21.3-54.2); Mean Corpuscular HGB Conc 32.4 GM/DL (32-36); Mean Corpuscular Hemoglobin 34 PG (27-34); Mean Corpuscular Volume 104.8 FL (87-102); Mean Platelet Volume 10.9 FL (9.6-12.0); Monocytes # 1.9 10*3/uL (0.11-0.8); Monocytes % 15.3 % (1.7-12.7); Neutrophils # 7.4 10*3/uL (1.4-7.4); Neutrophils % 58.7 % (38.7-73.9); Platelet Count 182 T/CUMM (130-400); Red Cell Distribution Width 14.2 % (9.3-17.3); White Blood Count 12.6 T/CUMM (4-12)
[2017-08-05] MEDS: ATORVASTATIN 40 MG TABLET PO SCH (21:58)
[2017-08-05] MEDS ORDERED: ALBUTEROL 2.5 MG/3 ML NEB RESP TX ONE (22:00)
[2017-08-05] MEDS ORDERED: LEVALBUTEROL 1.25 MG/3 ML NEB RESP TX ONE (22:00)
[2017-08-05 22:22] LABS: Alanine Aminotransferase 20 U/L (13-56); Albumin 3.9 G/DL (3.4-5.0); Alkaline Phosphatase 78 U/L (45-117); Aspartate Amino Transferase 31 U/L (0-37); Blood Urea Nitrogen 18 MG/DL (7-18); Calcium 8.7 MG/DL (8.5-10.1); Glucose 213 MG/DL (74-106); Magnesium 1.8 MG/DL (1.8-2.4); Osmolality,Calculated 282.7 MOS/KG (273-304); Potassium 4.1 MMOL/L (3.5-5.1); Sodium 138 MMOL/L (136-145); Total Protein 8.3 G/DL (6.4-8.3); Troponin I Only 0.018 NG/ML (0.00-0.045)
[2017-08-05 23:04] LABS: Amorphous Crystals,Urine Occasional /HPF (Few); Apearance,Urine Slightly Hazy (Clear); Bilirubin,Urine Negative (Negative); Blood, Urine Negative (Negative); Glucose,Urine (UA) >=500 mg/dL (Negative); Ketones,Urine 5 mg/dL (Negative); Mucus,Urine Occasional /LPF (Occasional); Nitrite,Urine Negative (Negative); Protein,Urine 30 MG/DL; RBC,Urine 1 /HPF (0-4); Squamous Epithelial Cell,Urine Occasional /HPF (0-10); Urine Color Yellow (Yellow); Urine Specific Gravity 1.011 (1.001-1.035); Urine Urobilinogen < 2.0 EU/DL (0.2-1.0); WBC,Urine 20 /HPF (0-6)
[2017-08-06 01:25] LABS: Troponin I Only 0.036 NG/ML (0.00-0.045)
[2017-08-06 06:06] LABS: Basophils % 0.2 % (0.0-0.8); Eosinophils % 0.3 % (0.00-10.9); Hematocrit 29.3 VOL% (35.7-47.0); Hemoglobin 9.7 GM/DL (12.0-16.0); Immature Granulocytes % 1.1 %; Lymphocytes # 1.6 10*3/uL (1.4-4.0); Lymphocytes % 16.6 % (21.3-54.2); Mean Corpuscular HGB Conc 33.1 GM/DL (32-36); Mean Corpuscular Hemoglobin 34 PG (27-34); Mean Corpuscular Volume 102.4 FL (87-102); Mean Platelet Volume 11.1 FL (9.6-12.0); Monocytes # 2.2 10*3/uL (0.11-0.8); Monocytes % 23.3 % (1.7-12.7); Neutrophils # 5.5 10*3/uL (1.4-7.4); Neutrophils % 58.5 % (38.7-73.9); Platelet Count 128 T/CUMM (130-400); Red Blood Count 2.86 MC/CUMM (3.8-5.5); Red Cell Distribution Width 14.2 % (9.3-17.3); White Blood Count 9.4 T/CUMM (4-12)
[2017-08-06 06:35] LABS: Band Neutrophils 2 % (0-10); Lymphocytes 13 % (20-55); Segmented Neutrophils 62 % (50-85); Total Cells Counted 100
[2017-08-06 06:36] LABS: Giant Platelets Few; Hypochromasia 1+; Ovalocytes Slight; Platelet Estimate Normal
[2017-08-06 06:47] LABS: Troponin I Only 0.039 NG/ML (0.00-0.045)
[2017-08-06] MEDS: LOSARTAN 50 MG TABLET PO SCH (08:56)
[2017-08-06] MEDS: INSULIN LISPRO 100 UNIT/ML SUBCUT SCH ×4 (08:56→21:20)
[2017-08-06] MEDS: FUROSEMIDE 40 MG TABLET PO SCH (08:56)
[2017-08-06] MEDS: CARVEDILOL 12.5 MG TABLET PO SCH (08:56)
[2017-08-06] MEDS ORDERED: POLYETHYLENE GLYCOL POWDER 17 GM PACK PO PRN (09:00)
[2017-08-06] MEDS: AZITHROMYCIN INJ 500 MG in SODIUM CHLORIDE 0.9% 250 ML IV SCH (13:26)
[2017-08-06] MEDS: cefTRIAXone 1,000 MG in SYRINGE 1 EACH IV SCH (13:26)
[2017-08-06] MEDS: LEVOFLOXACIN 500 MG TABLET PO SCH ×2 (14:22→14:23)
[2017-08-06] MEDS ORDERED: FUROSEMIDE 20 MG TABLET PO SCH (18:00)
[2017-08-06] MEDS: ATORVASTATIN 40 MG TABLET PO SCH (21:11)
[2017-08-07 07:01] LABS: Basophils % 0.3 % (0.0-0.8); Eosinophils # 0.4 10*3/uL (0.0-0.87); Eosinophils % 5.2 % (0.00-10.9); Hemoglobin 9.5 GM/DL (12.0-16.0); Immature Granulocytes % 1.5 %; Lymphocytes # 1.8 10*3/uL (1.4-4.0); Lymphocytes % 26.9 % (21.3-54.2); Mean Corpuscular HGB Conc 32.8 GM/DL (32-36); Mean Corpuscular Hemoglobin 34 PG (27-34); Mean Corpuscular Volume 102.1 FL (87-102); Mean Platelet Volume 11.6 FL (9.6-12.0); Monocytes # 1.7 10*3/uL (0.11-0.8); Monocytes % 24.9 % (1.7-12.7); Neutrophils # 2.8 10*3/uL (1.4-7.4); Neutrophils % 41.2 % (38.7-73.9); Platelet Count 131 T/CUMM (130-400); Red Blood Count 2.84 MC/CUMM (3.8-5.5); Red Cell Distribution Width 14.3 % (9.3-17.3); White Blood Count 6.7 T/CUMM (4-12)
[2017-08-07 07:27] LABS: Band Neutrophils 1 % (0-10); Eosinophils 6 % (0-10); Giant Platelets Few; Hypochromasia 1+; Lymphocytes 24 % (20-55); Ovalocytes Slight; Platelet Estimate Normal; Segmented Neutrophils 46 % (50-85); Total Cells Counted 100
[2017-08-07] MEDS: INSULIN LISPRO 100 UNIT/ML SUBCUT SCH ×4 (07:49→21:47)
[2017-08-07] MEDS: LOSARTAN 50 MG TABLET PO SCH (08:43)
[2017-08-07] MEDS: FUROSEMIDE 40 MG TABLET PO SCH (08:44)
[2017-08-07] MEDS: CARVEDILOL 12.5 MG TABLET PO SCH (08:44)
[2017-08-07] MEDS: LEVOFLOXACIN 500 MG TABLET PO SCH (14:10)
[2017-08-07] MEDS: FUROSEMIDE 40 MG/4 ML VIAL IV SCH (17:49)
[2017-08-07] MEDS: ATORVASTATIN 40 MG TABLET PO SCH (21:47)
[2017-08-08 05:37] LABS: Basophils % 0.2 % (0.0-0.8); Eosinophils # 0.3 10*3/uL (0.0-0.87); Hematocrit 27.5 VOL% (35.7-47.0); Hemoglobin 9.2 GM/DL (12.0-16.0); Immature Granulocytes % 0.8 %; Immature Granulocytes Absolute 0.07 #; Lymphocytes # 1.8 10*3/uL (1.4-4.0); Lymphocytes % 21.9 % (21.3-54.2); Mean Corpuscular HGB Conc 33.5 GM/DL (32-36); Mean Corpuscular Hemoglobin 34 PG (27-34); Mean Corpuscular Volume 101.5 FL (87-102); Mean Platelet Volume 11.3 FL (9.6-12.0); Monocytes # 2.3 10*3/uL (0.11-0.8); Monocytes % 27.3 % (1.7-12.7); Neutrophils # 3.9 10*3/uL (1.4-7.4); Neutrophils % 46.8 % (38.7-73.9); Platelet Count 125 T/CUMM (130-400); Red Blood Count 2.71 MC/CUMM (3.8-5.5); Red Cell Distribution Width 14.2 % (9.3-17.3); White Blood Count 8.4 T/CUMM (4-12)
[2017-08-08 06:16] LABS: Calcium 8.6 MG/DL (8.5-10.1); Magnesium 1.7 MG/DL (1.8-2.4); Osmolality,Calculated 272.8 MOS/KG (273-304); Potassium 3.5 MMOL/L (3.5-5.1)
[2017-08-08 06:59] LABS: Eosinophils 2 % (0-10); Lymphocytes 19 % (20-55); Platelet Estimate Normal; Segmented Neutrophils 66 % (50-85); Total Cells Counted 100
[2017-08-08] MEDS: INSULIN LISPRO 100 UNIT/ML SUBCUT SCH ×4 (07:17→21:35)
[2017-08-08] MEDS: LOSARTAN 50 MG TABLET PO SCH (09:07)
[2017-08-08] MEDS: FUROSEMIDE 40 MG/4 ML VIAL IV SCH ×2 (09:08→17:04)
[2017-08-08] MEDS: CARVEDILOL 12.5 MG TABLET PO SCH (09:08)
[2017-08-08] MEDS ORDERED: SKIN HEALING OINT (AQUAPHOR) 50 GM TUBE TOP PRN (10:50)
[2017-08-08] MEDS: ATORVASTATIN 40 MG TABLET PO SCH (21:35)
[2017-08-09 06:16] LABS: Basophils % 0.3 % (0.0-0.8); Eosinophils # 0.3 10*3/uL (0.0-0.87); Eosinophils % 4.2 % (0.00-10.9); Hemoglobin 9.1 GM/DL (12.0-16.0); Immature Granulocytes % 1.1 %; Immature Granulocytes Absolute 0.07 #; Lymphocytes # 1.3 10*3/uL (1.4-4.0); Lymphocytes % 19.4 % (21.3-54.2); Mean Corpuscular HGB Conc 33.7 GM/DL (32-36); Mean Corpuscular Hemoglobin 34 PG (27-34); Mean Corpuscular Volume 100.4 FL (87-102); Mean Platelet Volume 11.2 FL (9.6-12.0); Monocytes # 1.7 10*3/uL (0.11-0.8); Monocytes % 26.6 % (1.7-12.7); Neutrophils # 3.1 10*3/uL (1.4-7.4); Neutrophils % 48.4 % (38.7-73.9); Platelet Count 130 T/CUMM (130-400); Red Blood Count 2.69 MC/CUMM (3.8-5.5); Red Cell Distribution Width 14.4 % (9.3-17.3); White Blood Count 6.4 T/CUMM (4-12)
[2017-08-09 06:38] LABS: Calcium 8.6 MG/DL (8.5-10.1); Magnesium 1.7 MG/DL (1.8-2.4); Osmolality,Calculated 277.7 MOS/KG (273-304); Potassium 3.4 MMOL/L (3.5-5.1)
[2017-08-09 06:50] LABS: Eosinophils 3 % (0-10); Hypochromasia 1+; Lymphocytes 18 % (20-55); Myelocytes 1 %; Segmented Neutrophils 65 % (50-85); Total Cells Counted 100
[2017-08-09 06:51] LABS: Macrocytosis Slight; Platelet Estimate Adequate
[2017-08-09] MEDS: INSULIN LISPRO 100 UNIT/ML SUBCUT SCH ×4 (08:54→20:58)
[2017-08-09] MEDS: CARVEDILOL 12.5 MG TABLET PO SCH (08:55)
[2017-08-09] MEDS: LOSARTAN 50 MG TABLET PO SCH (08:55)
[2017-08-09] MEDS: FUROSEMIDE 40 MG/4 ML VIAL IV SCH ×2 (08:55→15:37)
[2017-08-09] MEDS ORDERED: FUROSEMIDE 20 MG TABLET PO SCH (19:00)
[2017-08-09] MEDS: ATORVASTATIN 40 MG TABLET PO SCH (20:58)
[2017-08-10 06:23] LABS: Basophils % 0.4 % (0.0-0.8); Eosinophils # 0.5 10*3/uL (0.0-0.87); Eosinophils % 9.9 % (0.00-10.9); Hematocrit 28.7 VOL% (35.7-47.0); Hemoglobin 9.7 GM/DL (12.0-16.0); Immature Granulocytes % 0.8 %; Immature Granulocytes Absolute 0.04 #; Lymphocytes # 1.2 10*3/uL (1.4-4.0); Lymphocytes % 21.9 % (21.3-54.2); Mean Corpuscular HGB Conc 33.8 GM/DL (32-36); Mean Corpuscular Hemoglobin 34 PG (27-34); Mean Corpuscular Volume 100.7 FL (87-102); Mean Platelet Volume 11.2 FL (9.6-12.0); Monocytes # 1.3 10*3/uL (0.11-0.8); Neutrophils # 2.3 10*3/uL (1.4-7.4); Platelet Count 141 T/CUMM (130-400); Red Blood Count 2.85 MC/CUMM (3.8-5.5); Red Cell Distribution Width 14.6 % (9.3-17.3); White Blood Count 5.3 T/CUMM (4-12)
[2017-08-10 06:40] LABS: Calcium 8.6 MG/DL (8.5-10.1); Magnesium 1.9 MG/DL (1.8-2.4); Osmolality,Calculated 278.7 MOS/KG (273-304); Potassium 3.4 MMOL/L (3.5-5.1)
[2017-08-10 06:56] LABS: Band Neutrophils 1 % (0-10); Eosinophils 13 % (0-10); Giant Platelets Few; Hypochromasia 1+; Lymphocytes 22 % (20-55); Microcytosis Slight; Ovalocytes Slight; Platelet Estimate Normal; Segmented Neutrophils 43 % (50-85); Total Cells Counted 100
[2017-08-10] MEDS ORDERED: POTASSIUM CHLORIDE 20 MEQ TABLET PO ONE (08:25)
[2017-08-10] MEDS: CARVEDILOL 12.5 MG TABLET PO SCH (08:36)
[2017-08-10] MEDS: LOSARTAN 50 MG TABLET PO SCH (08:36)
[2017-08-10] MEDS: INSULIN LISPRO 100 UNIT/ML SUBCUT SCH ×2 (08:37→12:05)
[2017-08-10] MEDS ORDERED: FUROSEMIDE 40 MG TABLET PO SCH (09:00)
[2017-08-10 12:26] VITALS: BP 127/57
== END 2017-08-10 12:25 | disposition home or self-care (01) | DRG 377 ==
LOC: N.ED 08:03 → N.EDINP 09:43 → N.5E 12:54
PROVIDERS: ADMIT Internal Medicine; ATTEND Internal Medicine

== ENCOUNTER 2017-08-13 09:58 | Inpatient (IN) ==
[2017-08-13] MEDS ORDERED: METOPROLOL TARTRATE 5 MG/5 ML VIAL IV STA (10:37)
[2017-08-13] MEDS ORDERED: LABETALOL 100 MG/20 ML VIAL IV STA (10:38)
[2017-08-13] MEDS ORDERED: METOPROLOL TARTRATE 5 MG/5 ML VIAL IV ONE (10:40)
[2017-08-13] MEDS ORDERED: MORPHINE 2 MG/1 ML SYRINGE ONE (10:40)
[2017-08-13] MEDS ORDERED: ONDANSETRON 4 MG/2 ML VIAL ONE (10:40)
[2017-08-13] MEDS ORDERED: LABETALOL 20 MG/4 ML SYRINGE IV ONE (10:41)
[2017-08-13] MEDS ORDERED: MORPHINE 2 MG/1 ML SYRINGE IV STA (10:43)
[2017-08-13] MEDS ORDERED: ONDANSETRON 4 MG/2 ML VIAL IV STA (10:44)
[2017-08-13 11:14] LABS: Basophils % 0.3 % (0.0-0.8); Eosinophils # 0.3 10*3/uL (0.0-0.87); Eosinophils % 3.5 % (0.00-10.9); Hematocrit 30.5 VOL% (35.7-47.0); Hemoglobin 10.7 GM/DL (12.0-16.0); Immature Granulocytes Absolute 0.07 #; Lymphocytes # 1.1 10*3/uL (1.4-4.0); Lymphocytes % 14.9 % (21.3-54.2); Mean Corpuscular HGB Conc 35.1 GM/DL (32-36); Mean Corpuscular Hemoglobin 34 PG (27-34); Mean Corpuscular Volume 98.1 FL (87-102); Mean Platelet Volume 10.8 FL (9.6-12.0); Monocytes % 13.4 % (1.7-12.7); Neutrophils # 4.7 10*3/uL (1.4-7.4); Neutrophils % 66.9 % (38.7-73.9); Platelet Count 174 T/CUMM (130-400); Red Blood Count 3.11 MC/CUMM (3.8-5.5); Red Cell Distribution Width 14.6 % (9.3-17.3); White Blood Count 7.1 T/CUMM (4-12)
[2017-08-13 11:22] LABS: INR 1.2; PT Patient Result 12.4 SECS; Partial Thromboplastin Time 30.8 SECS (0-40)
[2017-08-13 11:32] LABS: Albumin 3.7 G/DL (3.4-5.0); Bilirubin,Total 1.3 MG/DL (0.2-1.0); Calcium 8.6 MG/DL (8.5-10.1); Total Protein 7.8 G/DL (6.4-8.3)
[2017-08-13 11:33] LABS: Magnesium 1.9 MG/DL (1.8-2.4); Potassium 4.1 MMOL/L (3.5-5.1); Troponin I Only 0.043 NG/ML (0.00-0.045)
[2017-08-13] MEDS ORDERED: ONDANSETRON 4 MG/2 ML VIAL IV PRN (13:52)
[2017-08-13] MEDS ORDERED: GLUCAGON 1 MG VIAL IM PRN ×2 (14:27→17:52)
[2017-08-13] MEDS ORDERED: DEXTROSE 50% 25 GM/50 ML VIAL IV PRN ×2 (14:27→17:52)
[2017-08-13] MEDS ORDERED: NITROGLYCERIN SL 0.4 MG TABLET SL PRN (17:56)
[2017-08-13] MEDS: WARFARIN 5 MG TABLET PO SCH (18:46)
[2017-08-13 20:42] LABS: Troponin I Only 0.166 NG/ML (0.00-0.045)
[2017-08-13] MEDS ORDERED: FUROSEMIDE 20 MG/2 ML VIAL IV ONE (21:00)
[2017-08-13] MEDS: ATORVASTATIN 40 MG TABLET PO SCH (21:21)
[2017-08-13] MEDS: INSULIN GLARGINE 100 UNIT/ML SUBCUT SCH (21:22)
[2017-08-13] MEDS: INSULIN REGULAR 100 UNIT/ML SUBCUT SCH (21:24)
[2017-08-13] MEDS: FUROSEMIDE 40 MG/4 ML VIAL IV SCH (21:24)
[2017-08-14 05:16] LABS: Basophils % 0.6 % (0.0-0.8); Eosinophils # 0.4 10*3/uL (0.0-0.87); Eosinophils % 7.2 % (0.00-10.9); Hemoglobin 8.7 GM/DL (12.0-16.0); Immature Granulocytes % 1.4 %; Immature Granulocytes Absolute 0.07 #; Lymphocytes # 1.7 10*3/uL (1.4-4.0); Lymphocytes % 33.6 % (21.3-54.2); Mean Corpuscular HGB Conc 32.2 GM/DL (32-36); Mean Corpuscular Hemoglobin 33 PG (27-34); Mean Corpuscular Volume 102.7 FL (87-102); Mean Platelet Volume 10.7 FL (9.6-12.0); Monocytes % 19.8 % (1.7-12.7); Neutrophils # 1.9 10*3/uL (1.4-7.4); Neutrophils % 37.4 % (38.7-73.9); Platelet Count 149 T/CUMM (130-400); Red Blood Count 2.63 MC/CUMM (3.8-5.5); Red Cell Distribution Width 14.6 % (9.3-17.3)
[2017-08-14 05:43] LABS: Calcium 8.4 MG/DL (8.5-10.1); Osmolality,Calculated 277.4 MOS/KG (273-304); Potassium 3.9 MMOL/L (3.5-5.1)
[2017-08-14 05:49] LABS: Eosinophils 8 % (0-10); Lymphocytes 28 % (20-55); Segmented Neutrophils 45 % (50-85); Total Cells Counted 100
[2017-08-14 05:50] LABS: Giant Platelets Few; Hypochromasia 1+; Microcytosis Slight; Ovalocytes Slight; Platelet Estimate Normal
[2017-08-14] MEDS ORDERED: CARVEDILOL 12.5 MG TABLET PO SCH (09:00)
[2017-08-14] MEDS ORDERED: FUROSEMIDE 40 MG/4 ML VIAL IV SCH (09:00)
[2017-08-14] MEDS: POTASSIUM CHLORIDE 10 MEQ TABLET PO SCH (09:28)
[2017-08-14] MEDS: PANTOPRAZOLE 40 MG TABLET PO SCH (09:28)
[2017-08-14] MEDS: FUROSEMIDE 40 MG/4 ML VIAL IV SCH ×2 (09:28→22:05)
[2017-08-14] MEDS: ASPIRIN EC 81 MG TABLET PO SCH (09:28)
[2017-08-14] MEDS: GLIMEPIRIDE 4 MG TABLET PO SCH (09:29)
[2017-08-14] MEDS: INSULIN REGULAR 100 UNIT/ML SUBCUT SCH ×4 (09:29→21:43)
[2017-08-14] MEDS: LOSARTAN 50 MG TABLET PO SCH (12:30)
[2017-08-14] MEDS: WARFARIN 5 MG TABLET PO SCH (17:31)
[2017-08-14] MEDS: INSULIN GLARGINE 100 UNIT/ML SUBCUT SCH (21:54)
[2017-08-14] MEDS: ATORVASTATIN 40 MG TABLET PO SCH (21:55)
[2017-08-14] MEDS: CARVEDILOL 25 MG TABLET PO SCH (21:55)
[2017-08-15] MEDS: INSULIN REGULAR 100 UNIT/ML SUBCUT SCH ×4 (07:01→20:32)
[2017-08-15 09:15] LABS: Basophils % 0.2 % (0.0-0.8); Eosinophils # 0.3 10*3/uL (0.0-0.87); Eosinophils % 5.7 % (0.00-10.9); Hematocrit 27.9 VOL% (35.7-47.0); Immature Granulocytes % 0.6 %; Immature Granulocytes Absolute 0.03 #; Lymphocytes # 1.2 10*3/uL (1.4-4.0); Mean Corpuscular HGB Conc 32.3 GM/DL (32-36); Mean Corpuscular Hemoglobin 33 PG (27-34); Mean Platelet Volume 10.6 FL (9.6-12.0); Monocytes # 1.1 10*3/uL (0.11-0.8); Monocytes % 19.4 % (1.7-12.7); Neutrophils # 2.8 10*3/uL (1.4-7.4); Neutrophils % 52.1 % (38.7-73.9); Platelet Count 154 T/CUMM (130-400); Red Blood Count 2.71 MC/CUMM (3.8-5.5); Red Cell Distribution Width 14.6 % (9.3-17.3); White Blood Count 5.4 T/CUMM (4-12)
[2017-08-15] MEDS: LOSARTAN 50 MG TABLET PO SCH (09:15)
[2017-08-15] MEDS: GLIMEPIRIDE 4 MG TABLET PO SCH (09:15)
[2017-08-15] MEDS: FUROSEMIDE 40 MG/4 ML VIAL IV SCH ×2 (09:15→21:10)
[2017-08-15] MEDS: ASPIRIN EC 81 MG TABLET PO SCH (09:15)
[2017-08-15] MEDS: PANTOPRAZOLE 40 MG TABLET PO SCH (09:15)
[2017-08-15] MEDS: POTASSIUM CHLORIDE 10 MEQ TABLET PO SCH (09:15)
[2017-08-15] MEDS: CARVEDILOL 25 MG TABLET PO SCH ×2 (09:15→21:10)
[2017-08-15 09:30] LABS: Calcium 7.9 MG/DL (8.5-10.1); Magnesium 2.1 MG/DL (1.8-2.4); Osmolality,Calculated 273.8 MOS/KG (273-304); Potassium 4.1 MMOL/L (3.5-5.1)
[2017-08-15 13:16] LABS: Eosinophils 7 % (0-10); Lymphocytes 19 % (20-55); Platelet Estimate Adequate; Polychromasia Few; Segmented Neutrophils 66 % (50-85); Total Cells Counted 100
[2017-08-15 15:10] LABS: INR 1.4; PT Patient Result 14.7 SECS
[2017-08-15 15:35] LABS: Apearance,Urine CLEAR (Clear); Bilirubin,Urine Negative (Negative); Blood, Urine Negative (Negative); Glucose,Urine (UA) Negative (Negative); Ketones,Urine Negative (Negative); Mucus,Urine Occasional /LPF (Occasional); Nitrite,Urine Negative (Negative); Protein,Urine Negative; RBC,Urine <1 /HPF (0-4); Squamous Epithelial Cell,Urine Occasional /HPF (0-10); Urine Color Straw (Yellow); Urine Specific Gravity 1.004 (1.001-1.035); Urine Urobilinogen < 2.0 EU/DL (0.2-1.0); WBC,Urine 1 /HPF (0-6)
[2017-08-15] MEDS: WARFARIN 5 MG TABLET PO SCH (17:35)
[2017-08-15] MEDS: INSULIN GLARGINE 100 UNIT/ML SUBCUT SCH (20:33)
[2017-08-15] MEDS: ATORVASTATIN 40 MG TABLET PO SCH (21:10)
[2017-08-16 03:39] LABS: INR 1.5; PT Patient Result 15.5 SECS
[2017-08-16 04:59] LABS: Risk Ratio 3.07; VLDL CHOLESTEROL 29.2 MG/DL
[2017-08-16] MEDS: INSULIN REGULAR 100 UNIT/ML SUBCUT SCH ×4 (08:30→21:39)
[2017-08-16] MEDS: LOSARTAN 50 MG TABLET PO SCH (09:13)
[2017-08-16] MEDS: CARVEDILOL 25 MG TABLET PO SCH ×2 (09:13→21:47)
[2017-08-16] MEDS: PANTOPRAZOLE 40 MG TABLET PO SCH (09:14)
[2017-08-16] MEDS: ASPIRIN EC 81 MG TABLET PO SCH (09:14)
[2017-08-16] MEDS: FUROSEMIDE 40 MG/4 ML VIAL IV SCH ×2 (09:14→21:47)
[2017-08-16] MEDS: GLIMEPIRIDE 4 MG TABLET PO SCH (09:14)
[2017-08-16] MEDS: POTASSIUM CHLORIDE 10 MEQ TABLET PO SCH (09:14)
[2017-08-16] MEDS: WARFARIN 5 MG TABLET PO SCH (17:16)
[2017-08-16] MEDS: INSULIN GLARGINE 100 UNIT/ML SUBCUT SCH (21:46)
[2017-08-16] MEDS: ATORVASTATIN 40 MG TABLET PO SCH (21:47)
[2017-08-17] MEDS: INSULIN REGULAR 100 UNIT/ML SUBCUT SCH ×4 (08:52→22:23)
[2017-08-17] MEDS: LOSARTAN 50 MG TABLET PO SCH (09:21)
[2017-08-17] MEDS: CARVEDILOL 25 MG TABLET PO SCH ×2 (09:21→21:11)
[2017-08-17] MEDS: PANTOPRAZOLE 40 MG TABLET PO SCH (09:22)
[2017-08-17] MEDS: ASPIRIN EC 81 MG TABLET PO SCH (09:22)
[2017-08-17] MEDS: GLIMEPIRIDE 4 MG TABLET PO SCH (09:22)
[2017-08-17] MEDS: FUROSEMIDE 40 MG/4 ML VIAL IV SCH (09:22)
[2017-08-17] MEDS: POTASSIUM CHLORIDE 20 MEQ/15 ML UDCUP PO SCH (09:22)
[2017-08-17 12:36] LABS: Calcium 8.9 MG/DL (8.5-10.1); Magnesium 2.2 MG/DL (1.8-2.4); Potassium 4.5 MMOL/L (3.5-5.1)
[2017-08-17] MEDS: FUROSEMIDE 40 MG TABLET PO SCH (16:26)
[2017-08-17 18:17] LABS: INR 1.7; PT Patient Result 18.1 SECS
[2017-08-17] MEDS: ATORVASTATIN 40 MG TABLET PO SCH (21:11)
[2017-08-17] MEDS: INSULIN GLARGINE 100 UNIT/ML SUBCUT SCH (22:23)
[2017-08-18 05:29] LABS: Basophils % 0.2 % (0.0-0.8); Eosinophils # 0.3 10*3/uL (0.0-0.87); Eosinophils % 6.8 % (0.00-10.9); Hemoglobin 9.2 GM/DL (12.0-16.0); Immature Granulocytes Absolute 0.05 #; Lymphocytes # 1.5 10*3/uL (1.4-4.0); Lymphocytes % 31.3 % (21.3-54.2); Mean Corpuscular HGB Conc 32.9 GM/DL (32-36); Mean Corpuscular Hemoglobin 33 PG (27-34); Mean Corpuscular Volume 100.7 FL (87-102); Mean Platelet Volume 10.8 FL (9.6-12.0); Monocytes # 1.1 10*3/uL (0.11-0.8); Monocytes % 22.3 % (1.7-12.7); Neutrophils # 1.9 10*3/uL (1.4-7.4); Neutrophils % 38.4 % (38.7-73.9); Platelet Count 153 T/CUMM (130-400); Red Blood Count 2.78 MC/CUMM (3.8-5.5); Red Cell Distribution Width 14.3 % (9.3-17.3); White Blood Count 4.9 T/CUMM (4-12)
[2017-08-18 05:31] LABS: INR 1.7; PT Patient Result 17.9 SECS
[2017-08-18 05:54] LABS: Eosinophils 4 % (0-10); Hypochromasia 1+; Lymphocytes 33 % (20-55); Segmented Neutrophils 42 % (50-85); Total Cells Counted 100
[2017-08-18 05:55] LABS: Platelet Estimate Adequate
[2017-08-18 05:55] LABS: Calcium 8.6 MG/DL (8.5-10.1); Magnesium 2.1 MG/DL (1.8-2.4); Osmolality,Calculated 276.5 MOS/KG (273-304); Potassium 4.2 MMOL/L (3.5-5.1)
[2017-08-18] MEDS: INSULIN REGULAR 100 UNIT/ML SUBCUT SCH ×2 (08:52→13:13)
[2017-08-18] MEDS ORDERED: PROPOFOL 200 MG/20 ML VIAL IV ONE ×2 (10:48)
[2017-08-18] MEDS ORDERED: LIDOCAINE 2% 5 ML VIAL ONE ×2 (10:48)
[2017-08-18] MEDS ORDERED: DEXTROSE 50% 25 GM/50 ML VIAL IV PRN (11:45)
[2017-08-18] MEDS ORDERED: GLUCAGON 1 MG VIAL IM PRN (11:45)
[2017-08-18 12:01] VITALS: BP 152/72
[2017-08-18] MEDS: LOSARTAN 50 MG TABLET PO SCH (13:11)
[2017-08-18] MEDS: ASPIRIN EC 81 MG TABLET PO SCH (13:12)
[2017-08-18] MEDS: FUROSEMIDE 40 MG TABLET PO SCH (13:12)
[2017-08-18] MEDS: CARVEDILOL 25 MG TABLET PO SCH (13:12)
[2017-08-18] MEDS: PANTOPRAZOLE 40 MG TABLET PO SCH (13:12)
[2017-08-18] MEDS: GLIMEPIRIDE 4 MG TABLET PO SCH (13:12)
[2017-08-18] MEDS: POTASSIUM CHLORIDE 20 MEQ/15 ML UDCUP PO SCH (13:12)
== END 2017-08-18 15:40 | disposition home or self-care (01) | DRG 292 ==
LOC: EDBD → EDUNIT# → N.ED 09:58 → N.EDINP 12:42 → N.TELEN 17:10
PROVIDERS: ADMIT Internal Medicine; ATTEND Internal Medicine

== ENCOUNTER 2017-10-06 09:38 | Inpatient (IN) ==
[2017-10-06] MEDS ORDERED: PANTOPRAZOLE 40 MG VIAL IV STA (10:23)
[2017-10-06] MEDS ORDERED: SODIUM CHLORIDE 0.9% 500 ML IV STA ×2 (10:23→12:11)
[2017-10-06] MEDS ORDERED: ONDANSETRON 4 MG/2 ML VIAL IV PRN ×2 (10:23→13:49)
[2017-10-06 10:33] LABS: Basophils % 0.3 % (0.0-0.8); Eosinophils # 0.3 10*3/uL (0.0-0.87); Eosinophils % 3.8 % (0.00-10.9); Hematocrit 26.3 VOL% (35.7-47.0); Hemoglobin 9.5 GM/DL (12.0-16.0); Immature Granulocytes % 0.9 %; Immature Granulocytes Absolute 0.06 #; Lymphocytes # 2.2 10*3/uL (1.4-4.0); Lymphocytes % 32.3 % (21.3-54.2); Mean Corpuscular HGB Conc 36.1 GM/DL (32-36); Mean Corpuscular Hemoglobin 33 PG (27-34); Mean Platelet Volume 11.3 FL (9.6-12.0); Monocytes # 1.3 10*3/uL (0.11-0.8); Monocytes % 18.6 % (1.7-12.7); Neutrophils % 44.1 % (38.7-73.9); Platelet Count 136 T/CUMM (130-400); Red Blood Count 2.86 MC/CUMM (3.8-5.5); Red Cell Distribution Width 14.4 % (9.3-17.3); White Blood Count 6.8 T/CUMM (4-12)
[2017-10-06] MEDS ORDERED: PANTOPRAZOLE 40 MG VIAL IV ONE (10:33)
[2017-10-06] MEDS ORDERED: ONDANSETRON 4 MG/2 ML VIAL ONE (10:33)
[2017-10-06 10:38] LABS: INR 2.5; Partial Thromboplastin Time 40.1 SECS (0-40)
[2017-10-06 10:44] LABS: PT Patient Result 25.6 SECS
[2017-10-06 10:48] LABS: Albumin 4.3 G/DL (3.4-5.0); Bilirubin,Total 0.8 MG/DL (0.2-1.0); Calcium 9.4 MG/DL (8.5-10.1); Osmolality,Calculated 270.5 MOS/KG (273-304); Potassium 3.3 MMOL/L (3.5-5.1); Total Protein 8.3 G/DL (6.4-8.3)
[2017-10-06 10:53] LABS: Band Neutrophils 3 % (0-10); Eosinophils 2 % (0-10); Hypochromasia 1+; Lymphocytes 33 % (20-55); Microcytosis 1+; Ovalocytes Slight; Segmented Neutrophils 47 % (50-85); Total Cells Counted 100
[2017-10-06 10:54] LABS: Platelet Estimate Adequate
[2017-10-06] MEDS ORDERED: DEXTROSE 50% 25 GM/50 ML VIAL IV PRN ×2 (13:54→14:15)
[2017-10-06] MEDS ORDERED: GLUCAGON 1 MG VIAL IM PRN ×2 (13:54→14:15)
[2017-10-06] MEDS ORDERED: POTASSIUM CHLORIDE 20 MEQ TABLET PO ONE (14:11)
[2017-10-06] MEDS: SODIUM CHLORIDE 0.9% 1,000 ML IV SCH (17:00)
[2017-10-06] MEDS: INSULIN REGULAR 100 UNIT/ML SUBCUT SCH ×2 (19:31→23:42)
[2017-10-06] MEDS: ATORVASTATIN 40 MG TABLET PO SCH (20:11)
[2017-10-06 22:31] LABS: Hematocrit 22.6 VOL% (35.7-47.0); Hemoglobin 7.8 GM/DL (12.0-16.0)
[2017-10-06] MEDS ORDERED: SODIUM CHLORIDE 0.9% 1,000 ML IV PRN (23:45)
[2017-10-06] MEDS ORDERED: FUROSEMIDE 20 MG/2 ML VIAL IV PRN (23:45)
[2017-10-07] MEDS: INSULIN REGULAR 100 UNIT/ML SUBCUT SCH ×3 (05:41→18:38)
[2017-10-07 07:04] LABS: Hematocrit 27.8 VOL% (35.7-47.0)
[2017-10-07 07:16] LABS: Hemoglobin 9.7 GM/DL (12.0-16.0)
[2017-10-07 07:20] LABS: INR 2.2
[2017-10-07 07:23] LABS: PT Patient Result 22.2 SECS
[2017-10-07 07:30] LABS: Albumin 3.5 G/DL (3.4-5.0); Calcium 8.7 MG/DL (8.5-10.1); Osmolality,Calculated 276.5 MOS/KG (273-304); Potassium 3.2 MMOL/L (3.5-5.1); Total Protein 6.5 G/DL (6.4-8.3)
[2017-10-07] MEDS ORDERED: GLIMEPIRIDE 4 MG TABLET PO SCH (08:00)
[2017-10-07] MEDS: CARVEDILOL 12.5 MG TABLET PO SCH (09:41)
[2017-10-07] MEDS: PANTOPRAZOLE 40 MG VIAL IV SCH (09:42)
[2017-10-07 12:36] LABS: Hematocrit 29.7 VOL% (35.7-47.0); Hemoglobin 10.2 GM/DL (12.0-16.0)
[2017-10-07] MEDS: ATORVASTATIN 40 MG TABLET PO SCH (20:55)
[2017-10-08] MEDS: INSULIN REGULAR 100 UNIT/ML SUBCUT SCH ×4 (01:29→18:32)
[2017-10-08 06:43] LABS: Basophils % 0.2 % (0.0-0.8); Eosinophils # 0.3 10*3/uL (0.0-0.87); Eosinophils % 5.3 % (0.00-10.9); Hematocrit 26.5 VOL% (35.7-47.0); Hemoglobin 9.3 GM/DL (12.0-16.0); Immature Granulocytes Absolute 0.05 #; Lymphocytes # 1.6 10*3/uL (1.4-4.0); Lymphocytes % 32.8 % (21.3-54.2); Mean Corpuscular HGB Conc 35.1 GM/DL (32-36); Mean Corpuscular Hemoglobin 32 PG (27-34); Mean Corpuscular Volume 90.8 FL (87-102); Mean Platelet Volume 11.4 FL (9.6-12.0); Monocytes # 1.1 10*3/uL (0.11-0.8); Monocytes % 22.9 % (1.7-12.7); Neutrophils # 1.9 10*3/uL (1.4-7.4); Neutrophils % 37.8 % (38.7-73.9); Platelet Count 99 T/CUMM (130-400); Red Blood Count 2.92 MC/CUMM (3.8-5.5); Red Cell Distribution Width 17.3 % (9.3-17.3); White Blood Count 4.9 T/CUMM (4-12)
[2017-10-08 06:58] LABS: INR 2.3
[2017-10-08 07:01] LABS: PT Patient Result 23.1 SECS
[2017-10-08 07:06] LABS: Calcium 8.4 MG/DL (8.5-10.1); Potassium 3.5 MMOL/L (3.5-5.1)
[2017-10-08 07:30] LABS: Band Neutrophils 1 % (0-10); Eosinophils 3 % (0-10); Hypochromasia 1+; Lymphocytes 33 % (20-55); Segmented Neutrophils 45 % (50-85); Total Cells Counted 100
[2017-10-08 07:31] LABS: Microcytosis 1+; Platelet Estimate Decreased
[2017-10-08] MEDS: CARVEDILOL 12.5 MG TABLET PO SCH (08:38)
[2017-10-08] MEDS: PANTOPRAZOLE 40 MG VIAL IV SCH (08:39)
[2017-10-08] MEDS: SODIUM CHLORIDE 0.9% 1,000 ML IV SCH ×2 (10:02→15:22)
[2017-10-08] MEDS ORDERED: INSULIN GLARGINE 100 UNIT/ML SUBCUT SCH (21:00)
[2017-10-08] MEDS: ATORVASTATIN 40 MG TABLET PO SCH (21:14)
[2017-10-09] MEDS: INSULIN REGULAR 100 UNIT/ML SUBCUT SCH ×2 (00:09→06:37)
[2017-10-09 05:48] LABS: Basophils % 0.4 % (0.0-0.8); Eosinophils # 0.2 10*3/uL (0.0-0.87); Eosinophils % 4.2 % (0.00-10.9); Hematocrit 28.3 VOL% (35.7-47.0); Hemoglobin 9.3 GM/DL (12.0-16.0); Immature Granulocytes % 0.9 %; Immature Granulocytes Absolute 0.05 #; Lymphocytes # 1.8 10*3/uL (1.4-4.0); Lymphocytes % 33.1 % (21.3-54.2); Mean Corpuscular HGB Conc 32.9 GM/DL (32-36); Mean Corpuscular Hemoglobin 31 PG (27-34); Mean Platelet Volume 11.2 FL (9.6-12.0); Monocytes # 1.2 10*3/uL (0.11-0.8); Monocytes % 21.9 % (1.7-12.7); Neutrophils # 2.2 10*3/uL (1.4-7.4); Neutrophils % 39.5 % (38.7-73.9); Platelet Count 107 T/CUMM (130-400); Red Blood Count 2.98 MC/CUMM (3.8-5.5); Red Cell Distribution Width 17.2 % (9.3-17.3); White Blood Count 5.5 T/CUMM (4-12)
[2017-10-09 06:19] LABS: Eosinophils 3 % (0-10); Lymphocytes 44 % (20-55); Platelet Estimate Decreased; Segmented Neutrophils 37 % (50-85); Total Cells Counted 100
[2017-10-09 06:20] LABS: Atypical Lymphocytes Few; Hypochromasia 1+; Microcytosis Slight
[2017-10-09 06:30] LABS: Calcium 8.3 MG/DL (8.5-10.1); Osmolality,Calculated 277.7 MOS/KG (273-304); Potassium 3.6 MMOL/L (3.5-5.1)
[2017-10-09 06:41] LABS: Calcium 8.6 MG/DL (8.5-10.1); Osmolality,Calculated 275.8 MOS/KG (273-304); Potassium 3.6 MMOL/L (3.5-5.1)
[2017-10-09] MEDS: CARVEDILOL 12.5 MG TABLET PO SCH (08:47)
[2017-10-09] MEDS: PANTOPRAZOLE 40 MG VIAL IV SCH (08:47)
[2017-10-09 09:00] VITALS: BP 121/63
[2017-10-09 09:10] LABS: INR 2.1
== END 2017-10-09 10:34 | disposition home or self-care (01) | DRG 813 ==
LOC: N.ED 09:38 → N.EDINP 12:28 → N.4E 14:59
PROVIDERS: ADMIT Internal Medicine; ATTEND Internal Medicine

== ENCOUNTER 2018-04-16 08:19 | Inpatient (IN) ==
[2018-04-16] MEDS ORDERED: SODIUM CHLORIDE 0.9% 500 ML IV STA (08:31)
[2018-04-16] MEDS ORDERED: ONDANSETRON 4 MG/2 ML VIAL IV STA (08:31)
[2018-04-16] MEDS ORDERED: METOCLOPRAMIDE 10 MG/2 ML VIAL IV STA (08:31)
[2018-04-16] MEDS ORDERED: ORPHENADRINE 60 MG/2 ML VIAL IV STA (08:35)
[2018-04-16] MEDS ORDERED: KETOROLAC 30 MG/1 ML VIAL IV STA (08:35)
[2018-04-16 09:36] LABS: Basophils % 0.2 % (0.0-0.8); Eosinophils # 0.1 10*3/uL (0.0-0.87); Hemoglobin 12.2 GM/DL (12.0-16.0); Immature Granulocytes % 1.4 %; Immature Granulocytes Absolute 0.09 #; Lymphocytes # 1.3 10*3/uL (1.4-4.0); Lymphocytes % 19.2 % (21.3-54.2); Mean Corpuscular Hemoglobin 33 PG (27-34); Mean Corpuscular Volume 89.9 FL (87-102); Mean Platelet Volume 10.6 FL (9.6-12.0); Monocytes # 1.3 10*3/uL (0.11-0.8); Monocytes % 19.5 % (1.7-12.7); Neutrophils # 3.8 10*3/uL (1.4-7.4); Neutrophils % 57.7 % (38.7-73.9); Platelet Count 155 T/CUMM (130-400); Red Blood Count 3.67 MC/CUMM (3.8-5.5); Red Cell Distribution Width 14.9 % (9.3-17.3); White Blood Count 6.6 T/CUMM (4-12)
[2018-04-16 09:43] LABS: Apearance,Urine CLEAR (Clear); Bilirubin,Urine Negative (Negative); Blood, Urine Negative (Negative); Glucose,Urine (UA) Negative (Negative); Ketones,Urine Negative (Negative); Nitrite,Urine Negative (Negative); Protein,Urine Negative; Squamous Epithelial Cell,Urine Occasional /HPF (0-10); Urine Color Straw (Yellow); Urine Specific Gravity 1.004 (1.001-1.035); Urine Urobilinogen < 2.0 EU/DL (0.2-1.0); WBC,Urine <1 /HPF (0-6)
[2018-04-16 09:44] LABS: INR 1.2; PT Patient Result 12.1 SECS; Partial Thromboplastin Time 33.8 SECS (0-40)
[2018-04-16 10:14] LABS: Alanine Aminotransferase 20 U/L (13-56); Albumin 4.5 G/DL (3.4-5.0); Alkaline Phosphatase 79 U/L (45-117); Amylase 68 U/L (25-115); Aspartate Amino Transferase 33 U/L (0-37); Blood Urea Nitrogen 42 MG/DL (7-18); Calcium 9.7 MG/DL (8.5-10.1); Glucose 206 MG/DL (74-106); Osmolality,Calculated 261.9 MOS/KG (273-304); Potassium 2.6 MMOL/L (3.5-5.1); Sodium 122 MMOL/L (136-145); Total Protein 9.2 G/DL (6.4-8.3); Troponin I 0.022 NG/ML (0.00-0.045)
[2018-04-16 10:24] LABS: Eosinophils 5 % (0-10); Lymphocytes 15 % (20-55); Microcytosis Slight; Segmented Neutrophils 66 % (50-85); Total Cells Counted 100
[2018-04-16 10:25] LABS: Platelet Estimate Adequate
[2018-04-16] MEDS ORDERED: DEXTROSE 50% 25 GM/50 ML VIAL IV PRN (11:34)
[2018-04-16] MEDS ORDERED: ACETAMINOPHEN 325 MG TABLET PO PRN (11:34)
[2018-04-16] MEDS ORDERED: GLUCAGON 1 MG VIAL IM PRN (11:34)
[2018-04-16] MEDS ORDERED: ONDANSETRON 4 MG/2 ML VIAL IV PRN (11:34)
[2018-04-16] MEDS ORDERED: LACTULOSE 20 GM/30 ML UDCUP PO PRN (11:34)
[2018-04-16] MEDS ORDERED: metOLazone 5 MG TABLET PO PRN (11:39)
[2018-04-16] MEDS ORDERED: PROMETHAZINE 25 MG TABLET PO PRN (11:39)
[2018-04-16] MEDS ORDERED: NITROGLYCERIN SL 0.4 MG TABLET SL PRN (11:39)
[2018-04-16] MEDS ORDERED: POTASSIUM CHLORIDE 20 MEQ TABLET PO ONE (11:39)
[2018-04-16] MEDS: SODIUM CHLORIDE 0.9% 1,000 ML IV SCH ×2 (14:18→21:16)
[2018-04-16] MEDS: POTASSIUM CHLORIDE RIDER 10 MEQ in PREMIX 1 EACH IV SCH ×4 (14:33→18:34)
[2018-04-16] MEDS: ENOXAPARIN 30 MG/0.3 ML SYRINGE SUBCUT SCH (14:37)
[2018-04-16] MEDS ORDERED: FUROSEMIDE 20 MG TABLET PO SCH (17:00)
[2018-04-16] MEDS: INSULIN LISPRO 100 UNIT/ML SUBCUT SCH ×2 (17:06→21:19)
[2018-04-16 19:01] LABS: Calcium 8.6 MG/DL (8.5-10.1); Osmolality,Calculated 270.5 MOS/KG (273-304); Potassium 3.6 MMOL/L (3.5-5.1)
[2018-04-16] MEDS: ATORVASTATIN 40 MG TABLET PO SCH (21:18)
[2018-04-16] MEDS: CARVEDILOL 25 MG TABLET PO SCH (21:18)
[2018-04-16] MEDS: INSULIN GLARGINE 100 UNIT/ML SUBCUT SCH (21:19)
[2018-04-17] MEDS: SODIUM CHLORIDE 0.9% 1,000 ML IV SCH ×2 (02:57→17:45)
[2018-04-17 06:35] LABS: Albumin 3.4 G/DL (3.4-5.0); Bilirubin,Total 1.5 MG/DL (0.2-1.0); Calcium 8.6 MG/DL (8.5-10.1); Osmolality,Calculated 264.1 MOS/KG (273-304); Potassium 2.8 MMOL/L (3.5-5.1); Total Protein 7.1 G/DL (6.4-8.3)
[2018-04-17 08:22] LABS: Basophils % 0.3 % (0.0-0.8); Eosinophils # 0.2 10*3/uL (0.0-0.87); Eosinophils % 3.4 % (0.00-10.9); Hematocrit 25.6 VOL% (35.7-47.0); Hemoglobin 9.4 GM/DL (12.0-16.0); Immature Granulocytes % 1.3 %; Immature Granulocytes Absolute 0.08 #; Lymphocytes # 1.8 10*3/uL (1.4-4.0); Lymphocytes % 30.9 % (21.3-54.2); Mean Corpuscular HGB Conc 36.7 GM/DL (32-36); Mean Corpuscular Hemoglobin 34 PG (27-34); Mean Corpuscular Volume 91.1 FL (87-102); Mean Platelet Volume 11.3 FL (9.6-12.0); Monocytes # 1.4 10*3/uL (0.11-0.8); Neutrophils # 2.5 10*3/uL (1.4-7.4); Neutrophils % 41.1 % (38.7-73.9); Platelet Count 134 T/CUMM (130-400); Red Blood Count 2.81 MC/CUMM (3.8-5.5); Red Cell Distribution Width 15.6 % (9.3-17.3)
[2018-04-17 08:59] LABS: Anisocytosis 1+; Eosinophils 4 % (0-10); Lymphocytes 36 % (20-55); Platelet Estimate Adequate; Poikilocytosis Slight; Segmented Neutrophils 39 % (50-85); Total Cells Counted 100
[2018-04-17] MEDS ORDERED: FUROSEMIDE 40 MG TABLET PO SCH (09:00)
[2018-04-17] MEDS: POTASSIUM CHLORIDE 10 MEQ TABLET PO SCH (09:16)
[2018-04-17] MEDS: INSULIN LISPRO 100 UNIT/ML SUBCUT SCH ×3 (09:16→17:45)
[2018-04-17] MEDS: CARVEDILOL 25 MG TABLET PO SCH ×2 (09:16→21:19)
[2018-04-17] MEDS: SPIRONOLACTONE 25 MG TABLET PO SCH ×2 (10:55→21:19)
[2018-04-17] MEDS: ENOXAPARIN 30 MG/0.3 ML SYRINGE SUBCUT SCH (16:45)
[2018-04-17] MEDS: INSULIN GLARGINE 100 UNIT/ML SUBCUT SCH (21:19)
[2018-04-17] MEDS: ATORVASTATIN 40 MG TABLET PO SCH (21:19)
[2018-04-18] MEDS: INSULIN LISPRO 100 UNIT/ML SUBCUT SCH ×3 (02:44→13:50)
[2018-04-18 08:41] LABS: Calcium 9.3 MG/DL (8.5-10.1); Osmolality,Calculated 265.2 MOS/KG (273-304); Potassium 3.8 MMOL/L (3.5-5.1)
[2018-04-18] MEDS: CARVEDILOL 25 MG TABLET PO SCH (08:58)
[2018-04-18] MEDS: POTASSIUM CHLORIDE 10 MEQ TABLET PO SCH (08:58)
[2018-04-18] MEDS: SPIRONOLACTONE 25 MG TABLET PO SCH (08:58)
[2018-04-18 13:26] VITALS: BP 120/65
[2018-04-18 13:32] LABS: Hematocrit 27.9 VOL% (35.7-47.0); Hemoglobin 9.7 GM/DL (12.0-16.0)
[2018-04-18] MEDS: ENOXAPARIN 30 MG/0.3 ML SYRINGE SUBCUT SCH (14:35)
== END 2018-04-18 17:16 | disposition home or self-care (01) | DRG 683 ==
LOC: N.ED 08:19 → N.EDINP 11:34 → SUATTDRO 11:34 → N.EDINP 13:03 → N.5E 13:51
PROVIDERS: ADMIT Internal Medicine; ATTEND Hospitalist

== ENCOUNTER 2018-04-23 14:36 | Inpatient (IN) ==
[2018-04-23 15:39] LABS: Basophils % 0.2 % (0.0-0.8); Eosinophils # 0.1 10*3/uL (0.0-0.87); Eosinophils % 1.5 % (0.00-10.9); Hematocrit 30.7 VOL% (35.7-47.0); Hemoglobin 10.5 GM/DL (12.0-16.0); Immature Granulocytes % 1.2 %; Lymphocytes # 1.4 10*3/uL (1.4-4.0); Lymphocytes % 16.7 % (21.3-54.2); Mean Corpuscular HGB Conc 34.2 GM/DL (32-36); Mean Corpuscular Hemoglobin 32 PG (27-34); Mean Corpuscular Volume 94.2 FL (87-102); Mean Platelet Volume 10.4 FL (9.6-12.0); Monocytes # 1.2 10*3/uL (0.11-0.8); Monocytes % 14.1 % (1.7-12.7); Neutrophils # 5.4 10*3/uL (1.4-7.4); Neutrophils % 66.3 % (38.7-73.9); Platelet Count 164 T/CUMM (130-400); Red Blood Count 3.26 MC/CUMM (3.8-5.5); Red Cell Distribution Width 15.6 % (9.3-17.3); White Blood Count 8.2 T/CUMM (4-12)
[2018-04-23 16:07] LABS: Albumin 3.9 G/DL (3.4-5.0); Bilirubin,Total 1.6 MG/DL (0.2-1.0); Calcium 9.6 MG/DL (8.5-10.1); Osmolality,Calculated 253.8 MOS/KG (273-304); Potassium 4.5 MMOL/L (3.5-5.1); Total Protein 8.5 G/DL (6.4-8.3)
[2018-04-23] MEDS ORDERED: PANTOPRAZOLE 40 MG VIAL IV STA (16:54)
[2018-04-23] MEDS ORDERED: ONDANSETRON 4 MG/2 ML VIAL IV STA (16:54)
[2018-04-23] MEDS ORDERED: fentaNYL 100 MCG/2 ML VIAL IV STA (16:54)
[2018-04-23] MEDS ORDERED: SODIUM CHLORIDE 0.9% 500 ML IV STA ×2 (16:55→19:44)
[2018-04-23 17:40] LABS: Apearance,Urine Slightly Hazy (Clear); Bacteria,Urine Few /HPF (Few); Bilirubin,Urine Negative (Negative); Blood, Urine Small mg/dL (Negative); Glucose,Urine (UA) Negative (Negative); Ketones,Urine Negative (Negative); Nitrite,Urine Negative (Negative); Protein,Urine 30 MG/DL; RBC,Urine <1 /HPF (0-4); Squamous Epithelial Cell,Urine Occasional /HPF (0-10); Urine Color Yellow (Yellow); Urine Specific Gravity 1.008 (1.001-1.035); WBC,Urine 83 /HPF (0-6)
[2018-04-23] MEDS ORDERED: MAGNESIUM SULF RIDER 1 GM in PREMIX 1 EACH IV STA (19:44)
[2018-04-23] MEDS ORDERED: DOCUSATE SODIUM 100 MG CAPSULE PO PRN (20:58)
[2018-04-23] MEDS ORDERED: DEXTROSE 50% 25 GM/50 ML VIAL IV PRN (20:58)
[2018-04-23] MEDS ORDERED: GLUCAGON 1 MG VIAL IM PRN (20:58)
[2018-04-23] MEDS ORDERED: BISACODYL 5 MG TABLET PO PRN (20:58)
[2018-04-23] MEDS: SODIUM CHLORIDE 0.9% 1,000 ML IV SCH (23:58)
[2018-04-23] MEDS: cefTRIAXone 1,000 MG in SYRINGE 1 EACH IV SCH (23:58)
[2018-04-23] MEDS: MORPHINE 4 MG/1 ML VIAL IV PRN (23:59)
[2018-04-24] MEDS: INSULIN LISPRO 100 UNIT/ML SUBCUT SCH ×5 (00:05→20:10)
[2018-04-24 02:45] LABS: Basophils % 0.2 % (0.0-0.8); Eosinophils # 0.1 10*3/uL (0.0-0.87); Eosinophils % 0.8 % (0.00-10.9); Hematocrit 30.7 VOL% (35.7-47.0); Hemoglobin 10.3 GM/DL (12.0-16.0); Immature Granulocytes % 1.4 %; Immature Granulocytes Absolute 0.14 #; Lymphocytes # 1.2 10*3/uL (1.4-4.0); Lymphocytes % 12.4 % (21.3-54.2); Mean Corpuscular HGB Conc 33.6 GM/DL (32-36); Mean Corpuscular Hemoglobin 33 PG (27-34); Mean Corpuscular Volume 97.5 FL (87-102); Mean Platelet Volume 10.8 FL (9.6-12.0); Monocytes # 1.9 10*3/uL (0.11-0.8); Monocytes % 19.2 % (1.7-12.7); Neutrophils # 6.4 10*3/uL (1.4-7.4); Platelet Count 135 T/CUMM (130-400); Red Blood Count 3.15 MC/CUMM (3.8-5.5); Red Cell Distribution Width 15.8 % (9.3-17.3); White Blood Count 9.7 T/CUMM (4-12)
[2018-04-24 03:41] LABS: Albumin 3.6 G/DL (3.4-5.0); Bilirubin,Total 1.2 MG/DL (0.2-1.0); Calcium 8.9 MG/DL (8.5-10.1); Osmolality,Calculated 262.8 MOS/KG (273-304); Potassium 4.3 MMOL/L (3.5-5.1); Total Protein 7.4 G/DL (6.4-8.3)
[2018-04-24 05:29] LABS: Total Cells Counted 100
[2018-04-24 05:30] LABS: Burr Cells 1+; Lymphocytes 13 % (20-55); Platelet Estimate Decreased; Segmented Neutrophils 70 % (50-85)
[2018-04-24] MEDS: MORPHINE 4 MG/1 ML VIAL IV PRN ×2 (05:54→17:09)
[2018-04-24] MEDS: SODIUM CHLORIDE 0.9% 1,000 ML IV SCH ×2 (07:46→20:08)
[2018-04-24] MEDS: ENOXAPARIN 40 MG/0.4 ML SYRINGE SUBCUT SCH ×2 (08:39→08:43)
[2018-04-24] MEDS: SPIRONOLACTONE 25 MG TABLET PO SCH ×2 (08:40→20:10)
[2018-04-24] MEDS: CARVEDILOL 25 MG TABLET PO SCH ×2 (08:40→20:10)
[2018-04-24] MEDS: POTASSIUM CHLORIDE 20 MEQ TABLET PO SCH (08:40)
[2018-04-24] MEDS: PANTOPRAZOLE 40 MG VIAL IV SCH (12:40)
[2018-04-24] MEDS: ONDANSETRON 4 MG/2 ML VIAL IV PRN (17:09)
[2018-04-24] MEDS: ATORVASTATIN 40 MG TABLET PO SCH (20:10)
[2018-04-24] MEDS: INSULIN GLARGINE 100 UNIT/ML SUBCUT SCH (20:11)
[2018-04-24] MEDS: cefTRIAXone 1,000 MG in SYRINGE 1 EACH IV SCH (22:12)
[2018-04-25] MEDS: MORPHINE 4 MG/1 ML VIAL IV PRN ×2 (01:54→22:47)
[2018-04-25 01:59] LABS: Basophils % 0.2 % (0.0-0.8); Eosinophils # 0.1 10*3/uL (0.0-0.87); Eosinophils % 2.2 % (0.00-10.9); Hematocrit 27.8 VOL% (35.7-47.0); Hemoglobin 9.4 GM/DL (12.0-16.0); Immature Granulocytes % 1.7 %; Immature Granulocytes Absolute 0.11 #; Lymphocytes # 1.1 10*3/uL (1.4-4.0); Lymphocytes % 16.3 % (21.3-54.2); Mean Corpuscular HGB Conc 33.8 GM/DL (32-36); Mean Corpuscular Hemoglobin 33 PG (27-34); Mean Corpuscular Volume 97.9 FL (87-102); Mean Platelet Volume 10.3 FL (9.6-12.0); Monocytes # 1.4 10*3/uL (0.11-0.8); Monocytes % 22.1 % (1.7-12.7); Neutrophils # 3.8 10*3/uL (1.4-7.4); Neutrophils % 57.5 % (38.7-73.9); Platelet Count 127 T/CUMM (130-400); Red Blood Count 2.84 MC/CUMM (3.8-5.5); Red Cell Distribution Width 16.3 % (9.3-17.3); White Blood Count 6.5 T/CUMM (4-12)
[2018-04-25] MEDS: SODIUM CHLORIDE 0.9% 1,000 ML IV SCH ×3 (01:59→22:57)
[2018-04-25 02:15] LABS: Calcium 8.3 MG/DL (8.5-10.1); Osmolality,Calculated 273.1 MOS/KG (273-304); Potassium 4.5 MMOL/L (3.5-5.1)
[2018-04-25 03:01] LABS: Eosinophils 3 % (0-10); Lymphocytes 18 % (20-55); Segmented Neutrophils 58 % (50-85); Total Cells Counted 100
[2018-04-25 03:03] LABS: Ovalocytes 1+; Platelet Estimate Decreased; Polychromasia Few
[2018-04-25] MEDS: INSULIN LISPRO 100 UNIT/ML SUBCUT SCH ×4 (08:15→20:52)
[2018-04-25] MEDS: ENOXAPARIN 40 MG/0.4 ML SYRINGE SUBCUT SCH (09:56)
[2018-04-25] MEDS: PANTOPRAZOLE 40 MG VIAL IV SCH (09:56)
[2018-04-25] MEDS: SPIRONOLACTONE 25 MG TABLET PO SCH ×2 (09:56→20:53)
[2018-04-25] MEDS: POTASSIUM CHLORIDE 20 MEQ TABLET PO SCH (09:56)
[2018-04-25] MEDS: CARVEDILOL 25 MG TABLET PO SCH ×2 (09:56→20:53)
[2018-04-25] MEDS: INSULIN GLARGINE 100 UNIT/ML SUBCUT SCH (20:52)
[2018-04-25] MEDS: ATORVASTATIN 40 MG TABLET PO SCH (20:54)
[2018-04-25] MEDS: cefTRIAXone 1,000 MG in SYRINGE 1 EACH IV SCH (22:49)
[2018-04-26 03:12] LABS: Basophils % 0.1 % (0.0-0.8); Eosinophils # 0.2 10*3/uL (0.0-0.87); Eosinophils % 3.5 % (0.00-10.9); Hematocrit 25.6 VOL% (35.7-47.0); Hemoglobin 8.6 GM/DL (12.0-16.0); Immature Granulocytes % 1.6 %; Immature Granulocytes Absolute 0.11 #; Lymphocytes # 1.1 10*3/uL (1.4-4.0); Lymphocytes % 15.3 % (21.3-54.2); Mean Corpuscular HGB Conc 33.6 GM/DL (32-36); Mean Corpuscular Hemoglobin 34 PG (27-34); Mean Platelet Volume 10.4 FL (9.6-12.0); Monocytes # 1.5 10*3/uL (0.11-0.8); Monocytes % 21.1 % (1.7-12.7); Neutrophils % 58.4 % (38.7-73.9); Platelet Count 114 T/CUMM (130-400); Red Blood Count 2.56 MC/CUMM (3.8-5.5); Red Cell Distribution Width 16.3 % (9.3-17.3); White Blood Count 6.9 T/CUMM (4-12)
[2018-04-26 03:49] LABS: Calcium 7.9 MG/DL (8.5-10.1); Osmolality,Calculated 276.7 MOS/KG (273-304); Potassium 4.7 MMOL/L (3.5-5.1)
[2018-04-26 05:00] LABS: Atypical Lymphocytes Few; Lymphocytes 14 % (20-55); Metamyelocytes 1 %; Platelet Estimate Decreased; Segmented Neutrophils 79 % (50-85); Total Cells Counted 100
[2018-04-26 05:01] LABS: Polychromasia Few
[2018-04-26] MEDS: SPIRONOLACTONE 25 MG TABLET PO SCH ×2 (08:29→21:35)
[2018-04-26] MEDS: POTASSIUM CHLORIDE 20 MEQ TABLET PO SCH (08:29)
[2018-04-26] MEDS: INSULIN LISPRO 100 UNIT/ML SUBCUT SCH ×4 (08:29→21:49)
[2018-04-26] MEDS: CARVEDILOL 25 MG TABLET PO SCH ×2 (08:29→21:35)
[2018-04-26] MEDS: PANTOPRAZOLE 40 MG VIAL IV SCH (08:30)
[2018-04-26] MEDS: ENOXAPARIN 40 MG/0.4 ML SYRINGE SUBCUT SCH (08:30)
[2018-04-26] MEDS: SODIUM CHLORIDE 0.9% 1,000 ML IV SCH (13:05)
[2018-04-26] MEDS: ONDANSETRON 4 MG/2 ML VIAL IV PRN (20:23)
[2018-04-26] MEDS: MORPHINE 4 MG/1 ML VIAL IV PRN (20:30)
[2018-04-26] MEDS: ATORVASTATIN 40 MG TABLET PO SCH (21:35)
[2018-04-26] MEDS: INSULIN GLARGINE 100 UNIT/ML SUBCUT SCH (21:36)
[2018-04-26] MEDS ORDERED: ALBUTEROL/IPRATROPIUM 3 ML NEB RESP TX PRN (22:05)
[2018-04-27] MEDS: cefTRIAXone 1,000 MG in SYRINGE 1 EACH IV SCH (01:27)
[2018-04-27] MEDS: SODIUM CHLORIDE 0.9% 1,000 ML IV SCH ×2 (01:34→02:40)
[2018-04-27 03:37] LABS: Basophils % 0.2 % (0.0-0.8); Eosinophils # 0.2 10*3/uL (0.0-0.87); Eosinophils % 3.1 % (0.00-10.9); Hemoglobin 8.9 GM/DL (12.0-16.0); Immature Granulocytes % 1.8 %; Immature Granulocytes Absolute 0.11 #; Lymphocytes # 1.1 10*3/uL (1.4-4.0); Lymphocytes % 17.4 % (21.3-54.2); Mean Corpuscular HGB Conc 31.8 GM/DL (32-36); Mean Corpuscular Hemoglobin 32 PG (27-34); Mean Corpuscular Volume 100.7 FL (87-102); Mean Platelet Volume 10.8 FL (9.6-12.0); Monocytes # 1.1 10*3/uL (0.11-0.8); Monocytes % 18.2 % (1.7-12.7); Neutrophils # 3.7 10*3/uL (1.4-7.4); Neutrophils % 59.3 % (38.7-73.9); Platelet Count 124 T/CUMM (130-400); Red Blood Count 2.78 MC/CUMM (3.8-5.5); Red Cell Distribution Width 16.2 % (9.3-17.3); White Blood Count 6.2 T/CUMM (4-12)
[2018-04-27 04:03] LABS: Calcium 8.2 MG/DL (8.5-10.1); Osmolality,Calculated 275.7 MOS/KG (273-304); Potassium 4.9 MMOL/L (3.5-5.1)
[2018-04-27 05:03] LABS: Eosinophils 5 % (0-10); Giant Platelets Few; Hypochromasia 1+; Lymphocytes 12 % (20-55); Segmented Neutrophils 62 % (50-85); Total Cells Counted 100
[2018-04-27 05:04] LABS: Platelet Estimate Decreased
[2018-04-27] MEDS: INSULIN LISPRO 100 UNIT/ML SUBCUT SCH ×4 (07:30→20:34)
[2018-04-27] MEDS: SPIRONOLACTONE 25 MG TABLET PO SCH ×2 (09:04→20:32)
[2018-04-27] MEDS: PANTOPRAZOLE 40 MG TABLET PO SCH (09:04)
[2018-04-27] MEDS: CARVEDILOL 25 MG TABLET PO SCH ×2 (09:04→20:32)
[2018-04-27] MEDS: POTASSIUM CHLORIDE 20 MEQ TABLET PO SCH (09:04)
[2018-04-27] MEDS: ENOXAPARIN 40 MG/0.4 ML SYRINGE SUBCUT SCH (09:06)
[2018-04-27] MEDS ORDERED: FUROSEMIDE 40 MG/4 ML VIAL IV ONE (10:09)
[2018-04-27] MEDS: MORPHINE 4 MG/1 ML VIAL IV PRN (16:27)
[2018-04-27] MEDS: ONDANSETRON 4 MG/2 ML VIAL IV PRN (16:30)
[2018-04-27] MEDS: CIPROFLOXACIN 500 MG TABLET PO SCH (20:32)
[2018-04-27] MEDS: ATORVASTATIN 40 MG TABLET PO SCH (20:32)
[2018-04-27] MEDS: INSULIN GLARGINE 100 UNIT/ML SUBCUT SCH (20:33)
[2018-04-28] MEDS: INSULIN LISPRO 100 UNIT/ML SUBCUT SCH ×4 (08:04→20:40)
[2018-04-28] MEDS: PANTOPRAZOLE 40 MG TABLET PO SCH (09:19)
[2018-04-28] MEDS: CARVEDILOL 25 MG TABLET PO SCH ×2 (09:19→20:40)
[2018-04-28] MEDS: CIPROFLOXACIN 500 MG TABLET PO SCH ×2 (09:19→20:40)
[2018-04-28] MEDS: SPIRONOLACTONE 25 MG TABLET PO SCH ×2 (09:19→20:40)
[2018-04-28] MEDS: POTASSIUM CHLORIDE 20 MEQ TABLET PO SCH (09:23)
[2018-04-28] MEDS: ENOXAPARIN 40 MG/0.4 ML SYRINGE SUBCUT SCH (09:23)
[2018-04-28] MEDS ORDERED: FUROSEMIDE 40 MG/4 ML VIAL IV ONE (10:15)
[2018-04-28] MEDS: ATORVASTATIN 40 MG TABLET PO SCH (20:40)
[2018-04-28] MEDS: INSULIN GLARGINE 100 UNIT/ML SUBCUT SCH (20:41)
[2018-04-29 04:31] LABS: Basophils % 0.6 % (0.0-0.8); Eosinophils # 0.2 10*3/uL (0.0-0.87); Eosinophils % 4.1 % (0.00-10.9); Hematocrit 28.9 VOL% (35.7-47.0); Hemoglobin 9.6 GM/DL (12.0-16.0); Immature Granulocytes % 0.9 %; Immature Granulocytes Absolute 0.05 #; Lymphocytes # 1.1 10*3/uL (1.4-4.0); Lymphocytes % 19.7 % (21.3-54.2); Mean Corpuscular HGB Conc 33.2 GM/DL (32-36); Mean Corpuscular Hemoglobin 33 PG (27-34); Mean Corpuscular Volume 98.6 FL (87-102); Mean Platelet Volume 10.9 FL (9.6-12.0); Monocytes # 1.1 10*3/uL (0.11-0.8); Monocytes % 20.7 % (1.7-12.7); Neutrophils # 2.9 10*3/uL (1.4-7.4); Platelet Count 137 T/CUMM (130-400); Red Blood Count 2.93 MC/CUMM (3.8-5.5); Red Cell Distribution Width 15.9 % (9.3-17.3); White Blood Count 5.4 T/CUMM (4-12)
[2018-04-29 04:56] LABS: Eosinophils 6 % (0-10); Hypochromasia 1+; Lymphocytes 14 % (20-55); Platelet Estimate Normal; Segmented Neutrophils 65 % (50-85); Total Cells Counted 100
[2018-04-29 05:06] LABS: Albumin 3.4 G/DL (3.4-5.0); Bilirubin,Total 1.4 MG/DL (0.2-1.0); Calcium 8.7 MG/DL (8.5-10.1); Osmolality,Calculated 270.1 MOS/KG (273-304); Potassium 4.6 MMOL/L (3.5-5.1); Total Protein 7.3 G/DL (6.4-8.3)
[2018-04-29] MEDS: INSULIN LISPRO 100 UNIT/ML SUBCUT SCH ×3 (07:40→15:49)
[2018-04-29] MEDS ORDERED: DIAZEPAM 5 MG TABLET PO ONE (09:15)
[2018-04-29] MEDS ORDERED: DIAZEPAM 5 MG TABLET ONE (09:23)
[2018-04-29] MEDS ORDERED: fentaNYL 100 MCG/2 ML VIAL IV ONE (12:20)
[2018-04-29] MEDS ORDERED: MIDAZOLAM 2 MG/2 ML VIAL IV ONE (12:20)
[2018-04-29] MEDS ORDERED: fentaNYL 100 MCG/2 ML VIAL ONE (12:39)
[2018-04-29] MEDS ORDERED: MIDAZOLAM 2 MG/2 ML VIAL ONE (12:39)
[2018-04-29] MEDS ORDERED: ONDANSETRON 4 MG/2 ML VIAL ONE (12:40)
[2018-04-29] MEDS: ONDANSETRON 4 MG/2 ML VIAL IV PRN ×2 (13:00→21:05)
[2018-04-29] MEDS ORDERED: amLODIPine 5 MG TABLET PO ONE (14:08)
[2018-04-29] MEDS: CARVEDILOL 25 MG TABLET PO SCH ×2 (14:24→21:04)
[2018-04-29] MEDS: CIPROFLOXACIN 500 MG TABLET PO SCH ×2 (14:24→21:04)
[2018-04-29] MEDS: SPIRONOLACTONE 25 MG TABLET PO SCH ×2 (14:25→21:04)
[2018-04-29] MEDS: MORPHINE 4 MG/1 ML VIAL IV PRN (14:41)
[2018-04-29] MEDS: POTASSIUM CHLORIDE 20 MEQ TABLET PO SCH (15:14)
[2018-04-29] MEDS: PANTOPRAZOLE 40 MG TABLET PO SCH (15:14)
[2018-04-29] MEDS: ATORVASTATIN 40 MG TABLET PO SCH (21:03)
[2018-04-29] MEDS: amLODIPine 5 MG TABLET PO SCH (21:04)
[2018-04-30] MEDS: INSULIN GLARGINE 100 UNIT/ML SUBCUT SCH (01:05)
[2018-04-30] MEDS: INSULIN LISPRO 100 UNIT/ML SUBCUT SCH ×3 (01:05→12:31)
[2018-04-30 06:39] LABS: Basophils % 0.3 % (0.0-0.8); Eosinophils # 0.2 10*3/uL (0.0-0.87); Eosinophils % 3.6 % (0.00-10.9); Hematocrit 28.7 VOL% (35.7-47.0); Hemoglobin 9.5 GM/DL (12.0-16.0); Immature Granulocytes % 1.1 %; Immature Granulocytes Absolute 0.07 #; Lymphocytes # 1.3 10*3/uL (1.4-4.0); Lymphocytes % 19.8 % (21.3-54.2); Mean Corpuscular HGB Conc 33.1 GM/DL (32-36); Mean Corpuscular Hemoglobin 33 PG (27-34); Mean Corpuscular Volume 99.3 FL (87-102); Mean Platelet Volume 10.6 FL (9.6-12.0); Monocytes # 1.3 10*3/uL (0.11-0.8); Neutrophils # 3.6 10*3/uL (1.4-7.4); Neutrophils % 55.2 % (38.7-73.9); Platelet Count 129 T/CUMM (130-400); Red Blood Count 2.89 MC/CUMM (3.8-5.5); White Blood Count 6.5 T/CUMM (4-12)
[2018-04-30 07:09] LABS: Albumin 3.3 G/DL (3.4-5.0); Bilirubin,Total 1.4 MG/DL (0.2-1.0); Calcium 8.6 MG/DL (8.5-10.1); Potassium 4.3 MMOL/L (3.5-5.1); Total Protein 7.1 G/DL (6.4-8.3)
[2018-04-30 07:19] LABS: Eosinophils 4 % (0-10); Hypochromasia 1+; Lymphocytes 18 % (20-55); Platelet Estimate Normal; Segmented Neutrophils 60 % (50-85); Total Cells Counted 100
[2018-04-30 07:20] LABS: Burr Cells Slight; Ovalocytes Slight
[2018-04-30] MEDS: ENOXAPARIN 40 MG/0.4 ML SYRINGE SUBCUT SCH (09:28)
[2018-04-30] MEDS: POTASSIUM CHLORIDE 20 MEQ TABLET PO SCH (09:29)
[2018-04-30] MEDS: CARVEDILOL 25 MG TABLET PO SCH (09:30)
[2018-04-30] MEDS: amLODIPine 5 MG TABLET PO SCH (09:30)
[2018-04-30] MEDS: CIPROFLOXACIN 500 MG TABLET PO SCH (09:30)
[2018-04-30] MEDS: SPIRONOLACTONE 25 MG TABLET PO SCH (09:30)
[2018-04-30] MEDS: PANTOPRAZOLE 40 MG TABLET PO SCH (09:30)
[2018-04-30 12:32] VITALS: BP 125/61
== END 2018-04-30 13:41 | disposition home health service (06) | DRG 445 ==
LOC: N.ED 14:36 → N.EDINP 14:36 → N.3E 22:28
PROVIDERS: ADMIT Internal Medicine; ATTEND Internal Medicine

== ENCOUNTER 2018-05-23 17:59 | Inpatient (IN) ==
[2018-05-23] MEDS ORDERED: ONDANSETRON 4 MG/2 ML VIAL IV ONE (18:42)
[2018-05-23] MEDS ORDERED: SODIUM CHLORIDE 0.9% 1,000 ML IV STA (18:42)
[2018-05-23 19:18] LABS: Basophils % 0.2 % (0.0-0.8); Eosinophils # 0.1 10*3/uL (0.0-0.87); Eosinophils % 0.5 % (0.00-10.9); Hematocrit 31.7 VOL% (35.7-47.0); Hemoglobin 10.7 GM/DL (12.0-16.0); Immature Granulocytes % 1.4 %; Immature Granulocytes Absolute 0.23 #; Lymphocytes # 1.8 10*3/uL (1.4-4.0); Lymphocytes % 10.9 % (21.3-54.2); Mean Corpuscular HGB Conc 33.8 GM/DL (32-36); Mean Corpuscular Hemoglobin 32 PG (27-34); Mean Corpuscular Volume 95.8 FL (87-102); Mean Platelet Volume 10.6 FL (9.6-12.0); Neutrophils # 12.4 10*3/uL (1.4-7.4); Platelet Count 190 T/CUMM (130-400); Red Blood Count 3.31 MC/CUMM (3.8-5.5); Red Cell Distribution Width 15.4 % (9.3-17.3); White Blood Count 16.6 T/CUMM (4-12)
[2018-05-23 19:39] LABS: Albumin 3.8 G/DL (3.4-5.0); Bilirubin,Total 1.4 MG/DL (0.2-1.0); Calcium 9.5 MG/DL (8.5-10.1); Osmolality,Calculated 262.1 MOS/KG (273-304); Potassium 5.4 MMOL/L (3.5-5.1); Total Protein 8.9 G/DL (6.4-8.3)
[2018-05-23 20:05] LABS: Apearance,Urine CLEAR (Clear); Bacteria,Urine Occasional /HPF (Few); Bilirubin,Urine Negative (Negative); Blood, Urine Negative (Negative); Glucose,Urine (UA) Negative (Negative); Ketones,Urine Negative (Negative); Nitrite,Urine Negative (Negative); Protein,Urine Negative; RBC,Urine <1 /HPF (0-4); Squamous Epithelial Cell,Urine Occasional /HPF (0-10); Urine Color Yellow (Yellow); Urine Urobilinogen < 2.0 EU/DL (0.2-1.0); WBC,Urine 2 /HPF (0-6)
[2018-05-23] MEDS ORDERED: ONDANSETRON 4 MG/2 ML VIAL IV PRN (22:31)
[2018-05-23] MEDS ORDERED: NITROGLYCERIN SL 0.4 MG TABLET SL PRN (22:48)
[2018-05-23] MEDS ORDERED: SODIUM CHLORIDE 0.9% 1,000 ML IV SCH (23:00)
[2018-05-23] MEDS ORDERED: GLUCAGON 1 MG VIAL IM PRN (23:28)
[2018-05-23] MEDS ORDERED: DEXTROSE 50% 25 GM/50 ML VIAL IV PRN (23:28)
[2018-05-24 07:18] LABS: Basophils # 0.1 10*3/uL (0.0-0.2); Basophils % 0.4 % (0.0-0.8); Eosinophils # 0.2 10*3/uL (0.0-0.87); Eosinophils % 1.7 % (0.00-10.9); Hematocrit 29.4 VOL% (35.7-47.0); Hemoglobin 9.8 GM/DL (12.0-16.0); Immature Granulocytes % 1.4 %; Immature Granulocytes Absolute 0.16 #; Lymphocytes % 17.1 % (21.3-54.2); Mean Corpuscular HGB Conc 33.3 GM/DL (32-36); Mean Corpuscular Hemoglobin 33 PG (27-34); Mean Platelet Volume 10.7 FL (9.6-12.0); Monocytes # 1.9 10*3/uL (0.11-0.8); Monocytes % 16.5 % (1.7-12.7); Neutrophils # 7.4 10*3/uL (1.4-7.4); Neutrophils % 62.9 % (38.7-73.9); Platelet Count 158 T/CUMM (130-400); Red Cell Distribution Width 15.5 % (9.3-17.3); White Blood Count 11.7 T/CUMM (4-12)
[2018-05-24 07:35] LABS: Albumin 3.1 G/DL (3.4-5.0); Bilirubin,Total 0.8 MG/DL (0.2-1.0); Calcium 8.8 MG/DL (8.5-10.1); Osmolality,Calculated 264.2 MOS/KG (273-304); Potassium 4.2 MMOL/L (3.5-5.1); Total Protein 7.3 G/DL (6.4-8.3)
[2018-05-24 08:08] LABS: Atypical Lymphocytes Few; Eosinophils 3 % (0-10); Hypochromasia 1+; Lymphocytes 21 % (20-55); Microcytosis Slight; Ovalocytes Slight; Platelet Estimate Adequate; Segmented Neutrophils 62 % (50-85); Total Cells Counted 100
[2018-05-24] MEDS ORDERED: DEXTROSE 5% 1,000 ML IV SCH (09:00)
[2018-05-24] MEDS ORDERED: ENOXAPARIN 40 MG/0.4 ML SYRINGE SUBCUT SCH (09:00)
[2018-05-24] MEDS ORDERED: SPIRONOLACTONE 25 MG TABLET PO SCH (09:00)
[2018-05-24] MEDS ORDERED: PANTOPRAZOLE 40 MG TABLET PO SCH (09:00)
[2018-05-24] MEDS ORDERED: CARVEDILOL 25 MG TABLET PO SCH (09:00)
[2018-05-24] MEDS: INSULIN REGULAR 100 UNIT/ML SUBCUT SCH ×2 (09:22→10:55)
[2018-05-24 11:41] VITALS: BP 99/49
[2018-05-24] MEDS ORDERED: ATORVASTATIN 40 MG TABLET PO SCH (21:00)
== END 2018-05-24 16:15 | disposition home or self-care (01) | DRG 392 ==
LOC: EDUNIT# → EDBD → N.ED 17:59 → N.EDINP 22:31 → N.2E 23:05
PROVIDERS: ADMIT Internal Medicine; ATTEND Internal Medicine

== ENCOUNTER 2020-12-18 04:51 | Inpatient (IN) ==
[2020-12-18] MEDS ORDERED: MORPHINE 4 MG/1 ML VIAL IV STA (05:09)
[2020-12-18] MEDS ORDERED: FUROSEMIDE 100 MG/10 ML VIAL IV STA (05:09)
[2020-12-18] MEDS ORDERED: ALBUTEROL/IPRATROPIUM 3 ML NEB RESP TX STA (05:09)
[2020-12-18] MEDS ORDERED: ONDANSETRON 4 MG/2 ML VIAL IV STA (05:09)
[2020-12-18] MEDS ORDERED: ASPIRIN 325 MG TABLET PO STA (05:09)
[2020-12-18 05:46] LABS: Basophils % 0.3 % (0.0-0.8); Eosinophils # 0.2 10*3/uL (0.0-0.87); Eosinophils % 2.4 % (0.00-10.9); Hematocrit 37.2 VOL% (35.7-47.0); Hemoglobin 12.2 GM/DL (12.0-16.0); Immature Granulocytes % 0.5 %; Immature Granulocytes Absolute 0.03 #; Lymphocytes # 1.9 10*3/uL (1.4-4.0); Lymphocytes % 29.4 % (21.3-54.2); Mean Corpuscular HGB Conc 32.8 GM/DL (32-36); Mean Corpuscular Volume 109.4 FL (87-102); Mean Platelet Volume 11.9 FL (9.6-12.0); Monocytes % 26.7 % (1.7-12.7); Neutrophils % 40.7 % (38.7-73.9); Platelet Count 128 T/CUMM (130-400); Red Cell Distribution Width 12.8 % (9.3-17.3); White Blood Count 6.6 T/CUMM (4-12)
[2020-12-18 05:55] LABS: INR 1.4; PT Patient Result 15.1 SECS (10.5-12.0)
[2020-12-18 06:05] LABS: Eosinophils 2 % (0-10); Hypochromasia Slight; Lymphocytes 22 % (20-55); Microcytosis Slight; Platelet Estimate Adequate; Segmented Neutrophils 52 % (50-85); Total Cells Counted 100
[2020-12-18 06:06] LABS: Atypical Lymphocytes Few
[2020-12-18 06:29] LABS: Bilirubin,Total 1.7 MG/DL (0.2-1.0); Calcium 9.1 MG/DL (8.5-10.1); Osmolality,Calculated 272.7 MOS/KG (273-304); Potassium 4.4 MMOL/L (3.5-5.1); Total Protein 7.9 G/DL (6.4-8.2)
[2020-12-18] MEDS ORDERED: DEXTROSE 50% 25 GM/50 ML SYRINGE IV ONE (06:35)
[2020-12-18] MEDS ORDERED: DEXTROSE 50% 25 GM/50 ML VIAL IV STA ×2 (06:35→12:02)
[2020-12-18] MEDS ORDERED: ONDANSETRON 4 MG/2 ML VIAL IV PRN (09:07)
[2020-12-18] MEDS ORDERED: MAGNESIUM SULF RIDER 4 GM/100 ML PREMIX IV PRN (09:07)
[2020-12-18] MEDS ORDERED: ACETAMINOPHEN 325 MG TABLET PO PRN (09:07)
[2020-12-18] MEDS ORDERED: MAGNESIUM SULF RIDER 2 GM/50 ML PREMIX IV PRN (09:07)
[2020-12-18] MEDS ORDERED: ZALEPLON 5 MG CAPSULE PO PRN (09:07)
[2020-12-18] MEDS ORDERED: ALUMINUM/MAGNES/SIMETH MAX STR 30 ML UDCUP PO PRN (09:07)
[2020-12-18] MEDS ORDERED: PROMETHAZINE 25 MG TABLET PO PRN (09:21)
[2020-12-18] MEDS ORDERED: INSULIN GLARGINE 100 UNIT/ML SUBCUT PRN (09:21)
[2020-12-18] MEDS ORDERED: NITROGLYCERIN SL 0.4 MG TABLET SL PRN (09:21)
[2020-12-18] MEDS: ENOXAPARIN 40 MG/0.4 ML SYRINGE SUBCUT SCH (10:09)
[2020-12-18] MEDS ORDERED: traMADol 50 MG TABLET PO STA (11:54)
[2020-12-18] MEDS: FUROSEMIDE 40 MG/4 ML VIAL IV SCH (16:17)
[2020-12-18] MEDS ORDERED: GLIMEPIRIDE 2 MG TABLET PO SCH (17:00)
[2020-12-18] MEDS: ATORVASTATIN 40 MG TABLET PO SCH (21:19)
[2020-12-18] MEDS: carvediloL 25 MG TABLET PO SCH (21:19)
[2020-12-19 05:23] LABS: Basophils % 0.3 % (0.0-0.8); Eosinophils # 0.2 10*3/uL (0.0-0.87); Eosinophils % 1.9 % (0.00-10.9); Hematocrit 32.1 VOL% (35.7-47.0); Hemoglobin 10.6 GM/DL (12.0-16.0); Immature Granulocytes % 0.6 %; Immature Granulocytes Absolute 0.05 #; Lymphocytes # 1.1 10*3/uL (1.4-4.0); Lymphocytes % 14.4 % (21.3-54.2); Mean Corpuscular Volume 109.6 FL (87-102); Mean Platelet Volume 11.8 FL (9.6-12.0); Monocytes % 30.3 % (1.7-12.7); Neutrophils % 52.5 % (38.7-73.9); Platelet Count 106 T/CUMM (130-400); Red Blood Count 2.93 MC/CUMM (3.8-5.5); Red Cell Distribution Width 12.8 % (9.3-17.3); White Blood Count 7.7 T/CUMM (4-12)
[2020-12-19 05:48] LABS: Calcium 8.6 MG/DL (8.5-10.1); Eosinophils 2 % (0-10); Lymphocytes 15 % (20-55); Macrocytosis Slight; Osmolality,Calculated 280.8 MOS/KG (273-304); Platelet Estimate Normal; Potassium 3.7 MMOL/L (3.5-5.1); Risk Ratio 2.5; Segmented Neutrophils 58 % (50-85); Total Cells Counted 100; VLDL CHOLESTEROL 12.2 MG/DL
[2020-12-19] MEDS ORDERED: FUROSEMIDE 40 MG TABLET PO SCH (08:11)
[2020-12-19] MEDS: FUROSEMIDE 40 MG/4 ML VIAL IV SCH (08:20)
[2020-12-19] MEDS: ASPIRIN CHEW 81 MG TABLET PO SCH (08:36)
[2020-12-19] MEDS: ENOXAPARIN 40 MG/0.4 ML SYRINGE SUBCUT SCH (08:36)
[2020-12-19] MEDS: PANTOPRAZOLE 40 MG TABLET PO SCH (08:37)
[2020-12-19] MEDS: carvediloL 25 MG TABLET PO SCH ×2 (08:37→20:53)
[2020-12-19] MEDS: traMADol 50 MG TABLET PO PRN ×2 (08:37→17:33)
[2020-12-19] MEDS ORDERED: SPIRONOLACTONE 25 MG TABLET PO SCH (09:00)
[2020-12-19] MEDS: ATORVASTATIN 40 MG TABLET PO SCH (20:53)
[2020-12-20 05:54] LABS: Calcium 9.1 MG/DL (8.5-10.1); Potassium 4.2 MMOL/L (3.5-5.1)
[2020-12-20 05:57] LABS: Basophils % 0.1 % (0.0-0.8); Eosinophils # 0.1 10*3/uL (0.0-0.87); Eosinophils % 1.5 % (0.00-10.9); Hematocrit 31.9 VOL% (35.7-47.0); Hemoglobin 10.6 GM/DL (12.0-16.0); Immature Granulocytes % 0.9 %; Immature Granulocytes Absolute 0.08 #; Lymphocytes % 11.8 % (21.3-54.2); Mean Corpuscular HGB Conc 33.2 GM/DL (32-36); Mean Corpuscular Volume 106.7 FL (87-102); Mean Platelet Volume 12.1 FL (9.6-12.0); Monocytes % 24.7 % (1.7-12.7); Platelet Count 101 T/CUMM (130-400); Red Blood Count 2.99 MC/CUMM (3.8-5.5); Red Cell Distribution Width 12.9 % (9.3-17.3); White Blood Count 8.6 T/CUMM (4-12)
[2020-12-20 06:21] LABS: Eosinophils 1 % (0-10); Lymphocytes 10 % (20-55); Segmented Neutrophils 69 % (50-85); Total Cells Counted 100
[2020-12-20 06:22] LABS: Hypochromasia 1+
[2020-12-20 06:23] LABS: Acanthocytes Few; Macrocytosis Slight; Ovalocytes Slight
[2020-12-20 06:24] LABS: Platelet Estimate Adequate
[2020-12-20] MEDS: ASPIRIN CHEW 81 MG TABLET PO SCH (08:57)
[2020-12-20] MEDS: PANTOPRAZOLE 40 MG TABLET PO SCH (08:57)
[2020-12-20] MEDS: carvediloL 25 MG TABLET PO SCH (08:57)
[2020-12-20] MEDS: ENOXAPARIN 40 MG/0.4 ML SYRINGE SUBCUT SCH (08:57)
[2020-12-20] MEDS ORDERED: FUROSEMIDE 40 MG TABLET PO SCH (09:00)
[2020-12-20] MEDS ORDERED: SPIRONOLACTONE 25 MG TABLET PO SCH (09:00)
[2020-12-20] MEDS ORDERED: COLCHICINE 0.6 MG CAPSULE PO ONE (10:57)
[2020-12-20 11:32] VITALS: BP 101/37
[2020-12-20] MEDS: traMADol 50 MG TABLET PO PRN (15:14)
[2020-12-20] MEDS ORDERED: COLCHICINE 0.6 MG CAPSULE PO SCH (21:00)
== END 2020-12-20 15:25 | disposition home or self-care (01) | DRG 291 ==
LOC: N.ED 04:51 → N.EDINP 04:51 → N.ED 06:33 → N.TELEN 14:15
PROVIDERS: ADMIT Internal Medicine Cardiovascular Disease; ATTEND Internal Medicine Cardiovascular Disease

== ENCOUNTER 2021-10-24 18:34 | Inpatient (IN) ==
[2021-10-24] MEDS ORDERED: FUROSEMIDE 100 MG/10 ML VIAL IV STA (20:15)
[2021-10-24] MEDS ORDERED: ONDANSETRON 4 MG/2 ML VIAL IV STA (20:15)
[2021-10-24] MEDS ORDERED: MORPHINE 2 MG/1 ML SYRINGE IV STA (20:15)
[2021-10-24] MEDS ORDERED: ALBUTEROL/IPRATROPIUM 3 ML NEB RESP TX STA (20:15)
[2021-10-24] MEDS ORDERED: ASPIRIN 325 MG TABLET PO STA (20:15)
[2021-10-24 20:23] LABS: Basophils % 0.1 % (0.0-0.8); Eosinophils # 0.1 10*3/uL (0.0-0.87); Eosinophils % 1.8 % (0.00-10.9); Hematocrit 39.2 VOL% (35.7-47.0); Hemoglobin 12.9 GM/DL (12.0-16.0); Immature Granulocytes % 0.6 %; Immature Granulocytes Absolute 0.04 #; Lymphocytes # 1.4 10*3/uL (1.4-4.0); Lymphocytes % 20.9 % (21.3-54.2); Mean Corpuscular HGB Conc 32.9 GM/DL (32-36); Mean Corpuscular Volume 101.6 FL (87-102); Mean Platelet Volume 11.3 FL (9.6-12.0); Monocytes % 25.6 % (1.7-12.7); Platelet Count 174 T/CUMM (130-400); Red Blood Count 3.86 MC/CUMM (3.8-5.5); Red Cell Distribution Width 15.2 % (9.3-17.3); White Blood Count 6.8 T/CUMM (4-12)
[2021-10-24 20:33] LABS: INR 1.2; PT Patient Result 13.4 SECS (10.5-12.0)
[2021-10-24 20:43] LABS: Albumin 3.3 G/DL (3.4-5.0); Bilirubin,Total 1.5 MG/DL (0.20-1.00); Calcium 8.9 MG/DL (8.5-10.1); Osmolality,Calculated 276.1 MOS/KG (273-304); Potassium 3.9 MMOL/L (3.5-5.1); Total Protein 8.1 G/DL (6.4-8.2)
[2021-10-24 20:48] LABS: Eosinophils 1 % (0-10); Hypochromia 1+; Lymphocytes 24 % (20-55); Platelet Estimate Normal; Segmented Neutrophils 51 % (50-85); Total Cells Counted 100
[2021-10-24 21:20] LABS: RBC,Urine 71 /HPF (0-4)
[2021-10-24 21:21] LABS: Bilirubin,Urine Negative (Negative); Glucose,Urine (UA) Negative (Negative); Ketones,Urine Negative (Negative); Nitrite,Urine Positive (Negative); Protein,Urine >=300 mg/dL (Negative); Urine Appearance Cloudy (Clear); Urine Color Yellow (Yellow); Urine Specific Gravity 1.025 (1.001-1.035); Urine pH 6.5 (4.5-8.0)
[2021-10-24 21:22] LABS: Blood, Urine Large mg/dL (Negative)
[2021-10-24] MEDS ORDERED: MAGNESIUM SULF RIDER 2 GM/50 ML PREMIX IV PRN (21:26)
[2021-10-24] MEDS ORDERED: GLUCAGON 1 MG VIAL IM PRN ×2 (21:26)
[2021-10-24] MEDS ORDERED: DEXTROSE 50% 25 GM/50 ML VIAL IV PRN (21:26)
[2021-10-24] MEDS ORDERED: MAGNESIUM SULF RIDER 4 GM/100 ML PREMIX IV PRN (21:26)
[2021-10-24] MEDS ORDERED: DEXTROSE 10% 250 ML BAG IV PRN (21:42)
[2021-10-24] MEDS: cefTRIAXone 1,000 MG in SODIUM CHLORIDE 0.9% 100 ML IV SCH (22:25)
[2021-10-24] MEDS: ENOXAPARIN 30 MG/0.3 ML SYRINGE SUBCUT SCH (22:25)
[2021-10-25] MEDS: ONDANSETRON 4 MG/2 ML VIAL IV PRN (01:12)
[2021-10-25] MEDS: MORPHINE 2 MG/1 ML SYRINGE IV PRN ×2 (01:13→16:54)
[2021-10-25 06:39] LABS: Basophils % 0.3 % (0.0-0.8); Eosinophils # 0.1 10*3/uL (0.0-0.87); Eosinophils % 1.7 % (0.00-10.9); Hematocrit 33.2 VOL% (35.7-47.0); Hemoglobin 10.8 GM/DL (12.0-16.0); Immature Granulocytes % 0.9 %; Immature Granulocytes Absolute 0.06 #; Lymphocytes # 1.5 10*3/uL (1.4-4.0); Lymphocytes % 23.7 % (21.3-54.2); Mean Corpuscular HGB Conc 32.5 GM/DL (32-36); Mean Corpuscular Volume 101.8 FL (87-102); Mean Platelet Volume 11.4 FL (9.6-12.0); Monocytes % 30.5 % (1.7-12.7); Neutrophils % 42.9 % (38.7-73.9); Platelet Count 146 T/CUMM (130-400); Red Blood Count 3.26 MC/CUMM (3.8-5.5); Red Cell Distribution Width 15.3 % (9.3-17.3); White Blood Count 6.3 T/CUMM (4-12)
[2021-10-25 06:54] LABS: Albumin 2.6 G/DL (3.4-5.0); Bilirubin,Total 1.1 MG/DL (0.20-1.00); Calcium 8.2 MG/DL (8.5-10.1); Potassium 3.7 MMOL/L (3.5-5.1); Total Protein 7.1 G/DL (6.4-8.2)
[2021-10-25 07:03] LABS: Eosinophils 1 % (0-10); Lymphocytes 10 % (20-55); Segmented Neutrophils 61 % (50-85); Total Cells Counted 100
[2021-10-25 07:04] LABS: Platelet Estimate Adequate
[2021-10-25 07:05] LABS: Hypochromia Slight
[2021-10-25] MEDS: INSULIN REGULAR 100 UNIT/ML SUBCUT SCH ×4 (07:29→21:28)
[2021-10-25] MEDS: FUROSEMIDE 40 MG/4 ML VIAL IV SCH ×2 (08:39→16:49)
[2021-10-25] MEDS: SPIRONOLACTONE 25 MG TABLET PO SCH (08:49)
[2021-10-25] MEDS: ASPIRIN CHEW 81 MG TABLET PO SCH (08:49)
[2021-10-25] MEDS: carvediloL 25 MG TABLET PO SCH ×2 (08:50→21:09)
[2021-10-25] MEDS: ENOXAPARIN 30 MG/0.3 ML SYRINGE SUBCUT SCH (21:09)
[2021-10-25] MEDS: cefTRIAXone 1,000 MG in SODIUM CHLORIDE 0.9% 100 ML IV SCH (21:09)
[2021-10-25] MEDS: ATORVASTATIN 40 MG TABLET PO SCH (21:09)
[2021-10-25] MEDS: traMADol 50 MG TABLET PO PRN (23:31)
[2021-10-26 05:21] LABS: Basophils % 0.4 % (0.0-0.8); Eosinophils # 0.2 10*3/uL (0.0-0.87); Eosinophils % 3.6 % (0.00-10.9); Hematocrit 31.6 VOL% (35.7-47.0); Hemoglobin 10.1 GM/DL (12.0-16.0); Lymphocytes # 1.2 10*3/uL (1.4-4.0); Lymphocytes % 23.7 % (21.3-54.2); Mean Corpuscular Volume 103.6 FL (87-102); Mean Platelet Volume 11.2 FL (9.6-12.0); Monocytes % 29.2 % (1.7-12.7); Neutrophils % 42.1 % (38.7-73.9); Platelet Count 134 T/CUMM (130-400); Red Blood Count 3.05 MC/CUMM (3.8-5.5); Red Cell Distribution Width 15.5 % (9.3-17.3); White Blood Count 5.1 T/CUMM (4-12)
[2021-10-26 05:45] LABS: Albumin 2.3 G/DL (3.4-5.0); Bilirubin,Total 1.3 MG/DL (0.20-1.00); Calcium 8.4 MG/DL (8.5-10.1); Osmolality,Calculated 279.7 MOS/KG (273-304); Potassium 3.9 MMOL/L (3.5-5.1); Total Protein 6.4 G/DL (6.4-8.2)
[2021-10-26] MEDS: traMADol 50 MG TABLET PO PRN (06:07)
[2021-10-26] MEDS: ASPIRIN CHEW 81 MG TABLET PO SCH (09:32)
[2021-10-26] MEDS: SPIRONOLACTONE 25 MG TABLET PO SCH (09:33)
[2021-10-26] MEDS: FUROSEMIDE 40 MG/4 ML VIAL IV SCH ×2 (09:33→15:08)
[2021-10-26] MEDS: carvediloL 25 MG TABLET PO SCH ×2 (09:33→21:25)
[2021-10-26] MEDS: MORPHINE 2 MG/1 ML SYRINGE IV PRN ×2 (09:39→17:28)
[2021-10-26] MEDS: INSULIN REGULAR 100 UNIT/ML SUBCUT SCH ×4 (09:58→21:26)
[2021-10-26] MEDS: CIPROFLOXACIN INJ 400 MG/200 ML PREMIX IV SCH (15:07)
[2021-10-26] MEDS ORDERED: SODIUM PHOSPHATE ENEMA 133 ML BOTTLE RECTAL ONE (18:50)
[2021-10-26] MEDS: ENOXAPARIN 30 MG/0.3 ML SYRINGE SUBCUT SCH (21:25)
[2021-10-26] MEDS: ATORVASTATIN 40 MG TABLET PO SCH (21:25)
[2021-10-27] MEDS: ONDANSETRON 4 MG/2 ML VIAL IV PRN ×2 (03:24→09:30)
[2021-10-27] MEDS: traMADol 50 MG TABLET PO PRN (04:04)
[2021-10-27] MEDS: POLYETHYLENE GLYCOL POWDER 17 GM PACK PO PRN (06:03)
[2021-10-27] MEDS: INSULIN REGULAR 100 UNIT/ML SUBCUT SCH ×4 (09:24→21:59)
[2021-10-27] MEDS: SPIRONOLACTONE 25 MG TABLET PO SCH (09:25)
[2021-10-27] MEDS: ASPIRIN CHEW 81 MG TABLET PO SCH (09:25)
[2021-10-27] MEDS: CIPROFLOXACIN INJ 400 MG/200 ML PREMIX IV SCH (09:26)
[2021-10-27] MEDS: FUROSEMIDE 40 MG/4 ML VIAL IV SCH ×2 (10:37→17:02)
[2021-10-27] MEDS: carvediloL 25 MG TABLET PO SCH ×2 (10:37→20:35)
[2021-10-27] MEDS: MORPHINE 2 MG/1 ML SYRINGE IV PRN ×2 (12:59→20:40)
[2021-10-27] MEDS: FUROSEMIDE 20 MG/2 ML VIAL IV SCH (17:57)
[2021-10-27] MEDS: ATORVASTATIN 40 MG TABLET PO SCH (20:35)
[2021-10-27] MEDS: ENOXAPARIN 30 MG/0.3 ML SYRINGE SUBCUT SCH (22:09)
[2021-10-28] MEDS: CIPROFLOXACIN INJ 400 MG/200 ML PREMIX IV SCH (04:20)
[2021-10-28] MEDS: POLYETHYLENE GLYCOL POWDER 17 GM PACK PO PRN (05:23)
[2021-10-28 07:02] LABS: Basophils % 0.4 % (0.0-0.8); Eosinophils # 0.1 10*3/uL (0.0-0.87); Eosinophils % 2.4 % (0.00-10.9); Hematocrit 39.3 VOL% (35.7-47.0); Immature Granulocytes % 1.1 %; Immature Granulocytes Absolute 0.05 #; Lymphocytes % 21.2 % (21.3-54.2); Mean Corpuscular HGB Conc 31.8 GM/DL (32-36); Mean Corpuscular Volume 102.1 FL (87-102); Mean Platelet Volume 11.5 FL (9.6-12.0); Monocytes % 28.6 % (1.7-12.7); Neutrophils % 46.3 % (38.7-73.9); Platelet Count 120 T/CUMM (130-400); Red Cell Distribution Width 15.5 % (9.3-17.3); White Blood Count 4.7 T/CUMM (4-12)
[2021-10-28 07:05] LABS: Hemoglobin 12.5 GM/DL (12.0-16.0); Red Blood Count 3.85 MC/CUMM (3.8-5.5)
[2021-10-28 07:21] LABS: Calcium 8.6 MG/DL (8.5-10.1); Osmolality,Calculated 274.1 MOS/KG (273-304); Potassium 3.9 MMOL/L (3.5-5.1)
[2021-10-28 07:30] LABS: Eosinophils 3 % (0-10); Hypochromia Slight; Lymphocytes 17 % (20-55); Microcytosis Slight; Platelet Estimate Normal; Segmented Neutrophils 49 % (50-85); Total Cells Counted 100
[2021-10-28] MEDS: ASPIRIN CHEW 81 MG TABLET PO SCH (08:32)
[2021-10-28] MEDS: SPIRONOLACTONE 25 MG TABLET PO SCH (08:32)
[2021-10-28] MEDS: carvediloL 25 MG TABLET PO SCH ×2 (08:33→22:08)
[2021-10-28] MEDS: FUROSEMIDE 20 MG/2 ML VIAL IV SCH ×2 (08:40→16:13)
[2021-10-28] MEDS: INSULIN REGULAR 100 UNIT/ML SUBCUT SCH ×4 (09:23→22:11)
[2021-10-28] MEDS: traMADol 50 MG TABLET PO PRN ×2 (12:43→18:34)
[2021-10-28] MEDS ORDERED: TUBERCULIN SKIN TEST 0.1 ML SYRINGE INTRADERM ONE (13:17)
[2021-10-28] MEDS: ATORVASTATIN 40 MG TABLET PO SCH (22:07)
[2021-10-28] MEDS: CIPROFLOXACIN 250 MG TABLET PO SCH (22:07)
[2021-10-28] MEDS: ENOXAPARIN 30 MG/0.3 ML SYRINGE SUBCUT SCH (22:09)
[2021-10-29] MEDS: traMADol 50 MG TABLET PO PRN ×2 (04:22→17:58)
[2021-10-29] MEDS: ASPIRIN CHEW 81 MG TABLET PO SCH (08:49)
[2021-10-29] MEDS: carvediloL 25 MG TABLET PO SCH ×2 (08:50→20:55)
[2021-10-29] MEDS: INSULIN REGULAR 100 UNIT/ML SUBCUT SCH ×4 (08:51→22:20)
[2021-10-29] MEDS: SPIRONOLACTONE 25 MG TABLET PO SCH (08:51)
[2021-10-29] MEDS: MORPHINE 2 MG/1 ML SYRINGE IV PRN (11:39)
[2021-10-29] MEDS: FUROSEMIDE 20 MG/2 ML VIAL IV SCH ×2 (13:15→16:09)
[2021-10-29] MEDS: CIPROFLOXACIN 250 MG TABLET PO SCH (16:03)
[2021-10-29] MEDS: ATORVASTATIN 40 MG TABLET PO SCH (20:55)
[2021-10-29] MEDS: ENOXAPARIN 30 MG/0.3 ML SYRINGE SUBCUT SCH (22:19)
[2021-10-30] MEDS: traMADol 50 MG TABLET PO PRN ×2 (04:36→09:01)
[2021-10-30] MEDS: carvediloL 25 MG TABLET PO SCH (09:00)
[2021-10-30] MEDS: CIPROFLOXACIN 250 MG TABLET PO SCH (09:00)
[2021-10-30] MEDS: SPIRONOLACTONE 25 MG TABLET PO SCH (09:00)
[2021-10-30] MEDS: ASPIRIN CHEW 81 MG TABLET PO SCH (09:00)
[2021-10-30] MEDS: INSULIN REGULAR 100 UNIT/ML SUBCUT SCH ×2 (09:01→13:32)
[2021-10-30] MEDS: FUROSEMIDE 20 MG/2 ML VIAL IV SCH (09:01)
[2021-10-30 15:26] VITALS: BP 108/57
[2021-10-31] MEDS ORDERED: FUROSEMIDE 40 MG TABLET PO SCH (09:00)
== END 2021-10-30 14:58 | DRG 291 ==
LOC: N.ED 18:34 → N.EDINP 18:34 → N.TELES 10-25 12:42 → SUATTDRO 10-25 13:49
PROVIDERS: ADMIT Internal Medicine; ATTEND Emergency Medicine

== ENCOUNTER 2021-11-15 23:05 | Inpatient (IN) ==
[2021-11-15] MEDS ORDERED: ONDANSETRON 4 MG/2 ML VIAL IV STA (23:25)
[2021-11-15] MEDS ORDERED: MORPHINE 2 MG/1 ML SYRINGE IV STA (23:25)
[2021-11-16 00:19] LABS: Bacteria,Urine Occasional /HPF (Few); Mucus,Urine Occasional /LPF (Occasional); Squamous Epithelial Cell,Urine Occasional /HPF (0-10)
[2021-11-16 00:20] LABS: Bilirubin,Urine Negative (Negative); Blood, Urine Negative (Negative); Glucose,Urine (UA) Negative (Negative); Ketones,Urine Negative (Negative); Nitrite,Urine Negative (Negative); Protein,Urine Trace mg/dL (Negative); Urine Appearance Clear (Clear); Urine Color Yellow (Yellow); Urine Urobilinogen 0.2 eU/dL (<2.0)
[2021-11-16 00:22] LABS: Alanine Aminotransferase 16 U/L (13-56); Albumin 3.5 G/DL (3.4-5.0); Alkaline Phosphatase 83 U/L (45-117); Aspartate Amino Transferase 29 U/L (0-37); Blood Urea Nitrogen 31 MG/DL (7-18); Carbon Dioxide 27 MMOL/L (21-32); Chloride 101 MMOL/L (98-107); Estimated Glom Filtration Rate 19 ML/MIN; Glucose 146 MG/DL (74-106); Potassium 4.4 MMOL/L (3.5-5.1); Sodium 136 MMOL/L (136-145); Total Protein 8.4 G/DL (6.4-8.2)
[2021-11-16 00:42] LABS: Basophils % 0.2 % (0.0-0.8); Eosinophils # 0.1 10*3/uL (0.0-0.87); Eosinophils % 0.8 % (0.00-10.9); Hemoglobin 12.2 GM/DL (12.0-16.0); Immature Granulocytes Absolute 0.06 #; Lymphocytes # 1.7 10*3/uL (1.4-4.0); Lymphocytes % 26.7 % (21.3-54.2); Mean Corpuscular HGB Conc 32.1 GM/DL (32-36); Mean Corpuscular Volume 101.6 FL (87-102); Monocytes # 0.8 10*3/uL (0.11-0.8); Monocytes % 12.6 % (1.7-12.7); Neutrophils % 58.7 % (38.7-73.9); Platelet Count 138 T/CUMM (130-400); Red Blood Count 3.74 MC/CUMM (3.8-5.5); Red Cell Distribution Width 16.8 % (9.3-17.3); White Blood Count 6.2 T/CUMM (4-12)
[2021-11-16] MEDS ORDERED: SODIUM CHLORIDE 0.9% 1,000 ML IV STA (01:26)
[2021-11-16] MEDS ORDERED: cefTRIAXone 1,000 MG in SODIUM CHLORIDE 0.9% 100 ML IV STA (01:27)
[2021-11-16] MEDS ORDERED: PIPERACILLIN/TAZOBACTAM 3,375 MG in SODIUM CHLORIDE 0.9% 100 ML IV STA (01:28)
[2021-11-16] MEDS ORDERED: ACETAMINOPHEN 325 MG TABLET PO PRN (02:11)
[2021-11-16] MEDS ORDERED: GLUCAGON 1 MG VIAL IM PRN (02:11)
[2021-11-16] MEDS ORDERED: ONDANSETRON 4 MG/2 ML VIAL IV PRN (02:11)
[2021-11-16] MEDS ORDERED: DEXTROSE 10% 250 ML BAG IV PRN (02:11)
[2021-11-16] MEDS: FUROSEMIDE 40 MG/4 ML VIAL IV SCH ×2 (02:59→09:51)
[2021-11-16] MEDS: PANTOPRAZOLE 40 MG VIAL IV SCH (09:53)
[2021-11-16] MEDS: traMADol 50 MG TABLET PO PRN ×2 (14:21→22:31)
[2021-11-16] MEDS: PIPERACILLIN/TAZOBACTAM 3,375 MG in SODIUM CHLORIDE 0.9% 100 ML IV SCH (14:23)
[2021-11-16] MEDS: BACLOFEN 10 MG TABLET PO PRN (16:37)
[2021-11-16] MEDS: INSULIN GLARGINE 100 UNIT/ML SUBCUT SCH (22:39)
[2021-11-16] MEDS: carvediloL 25 MG TABLET PO SCH (22:39)
[2021-11-16] MEDS: ATORVASTATIN 40 MG TABLET PO SCH (22:39)
[2021-11-17] MEDS: PIPERACILLIN/TAZOBACTAM 3,375 MG in SODIUM CHLORIDE 0.9% 100 ML IV SCH ×2 (03:07→16:00)
[2021-11-17 04:45] LABS: Basophils % 0.3 % (0.0-0.8); Eosinophils # 0.1 10*3/uL (0.0-0.87); Eosinophils % 1.6 % (0.00-10.9); Hematocrit 32.3 VOL% (35.7-47.0); Immature Granulocytes % 1.2 %; Immature Granulocytes Absolute 0.08 #; Lymphocytes # 1.7 10*3/uL (1.4-4.0); Lymphocytes % 25.3 % (21.3-54.2); Mean Corpuscular HGB Conc 31.3 GM/DL (32-36); Mean Corpuscular Volume 101.9 FL (87-102); Mean Platelet Volume 11.8 FL (9.6-12.0); Monocytes # 1.6 10*3/uL (0.11-0.8); Monocytes % 22.6 % (1.7-12.7); Red Blood Count 3.17 MC/CUMM (3.8-5.5); Red Cell Distribution Width 16.9 % (9.3-17.3); White Blood Count 6.9 T/CUMM (4-12)
[2021-11-17 04:47] LABS: Hemoglobin 10.1 GM/DL (12.0-16.0); Platelet Count 114 T/CUMM (130-400)
[2021-11-17 05:01] LABS: Calcium 8.6 MG/DL (8.5-10.1); Osmolality,Calculated 287.5 MOS/KG (273-304); Potassium 3.9 MMOL/L (3.5-5.1)
[2021-11-17 05:08] LABS: Lymphocytes 23 % (20-55); Total Cells Counted 100
[2021-11-17 05:09] LABS: Platelet Estimate Decreased
[2021-11-17 05:10] LABS: Atypical Lymphocytes 1+; Hypochromia 1+; Reactive Lymphocytes 2+
[2021-11-17] MEDS ORDERED: DEXTROSE 50% 25 GM/50 ML VIAL IV PRN (07:22)
[2021-11-17] MEDS ORDERED: GLUCAGON 1 MG VIAL IM PRN (07:22)
[2021-11-17] MEDS: ASPIRIN CHEW 81 MG TABLET PO SCH (09:12)
[2021-11-17] MEDS: PANTOPRAZOLE 40 MG VIAL IV SCH (09:12)
[2021-11-17] MEDS: traMADol 50 MG TABLET PO PRN ×2 (09:12→20:21)
[2021-11-17] MEDS: FUROSEMIDE 40 MG/4 ML VIAL IV SCH (09:13)
[2021-11-17] MEDS ORDERED: MAGNESIUM SULF RIDER 2 GM/50 ML PREMIX IV ONE (09:14)
[2021-11-17] MEDS: carvediloL 25 MG TABLET PO SCH (09:23)
[2021-11-17] MEDS ORDERED: MINERAL OIL ENEMA 133 ML BOTTLE RECTAL ONE (14:00)
[2021-11-17] MEDS: carvediloL 12.5 MG TABLET PO SCH (16:26)
[2021-11-17] MEDS: ATORVASTATIN 40 MG TABLET PO SCH (20:21)
[2021-11-17] MEDS: BACLOFEN 10 MG TABLET PO PRN (20:21)
[2021-11-17] MEDS: INSULIN GLARGINE 100 UNIT/ML SUBCUT SCH (23:31)
[2021-11-18] MEDS: PIPERACILLIN/TAZOBACTAM 3,375 MG in SODIUM CHLORIDE 0.9% 100 ML IV SCH ×2 (04:02→14:45)
[2021-11-18 04:58] LABS: Basophils % 0.4 % (0.0-0.8); Eosinophils # 0.1 10*3/uL (0.0-0.87); Eosinophils % 2.6 % (0.00-10.9); Hematocrit 30.9 VOL% (35.7-47.0); Hemoglobin 9.8 GM/DL (12.0-16.0); Immature Granulocytes % 0.4 %; Immature Granulocytes Absolute 0.02 #; Lymphocytes # 1.7 10*3/uL (1.4-4.0); Lymphocytes % 32.5 % (21.3-54.2); Mean Corpuscular HGB Conc 31.7 GM/DL (32-36); Mean Corpuscular Volume 101.6 FL (87-102); Monocytes # 1.1 10*3/uL (0.11-0.8); Monocytes % 20.6 % (1.7-12.7); Neutrophils % 43.5 % (38.7-73.9); Platelet Count 106 T/CUMM (130-400); Red Blood Count 3.04 MC/CUMM (3.8-5.5); Red Cell Distribution Width 16.7 % (9.3-17.3); White Blood Count 5.4 T/CUMM (4-12)
[2021-11-18 05:24] LABS: Eosinophils 3 % (0-10); Hypochromia 1+; Lymphocytes 32 % (20-55); Microcytosis 1+; Total Cells Counted 100
[2021-11-18 05:25] LABS: Calcium 8.5 MG/DL (8.5-10.1); Osmolality,Calculated 281.5 MOS/KG (273-304); Potassium 3.7 MMOL/L (3.5-5.1)
[2021-11-18] MEDS: carvediloL 12.5 MG TABLET PO SCH ×2 (09:31→16:21)
[2021-11-18] MEDS: ASPIRIN CHEW 81 MG TABLET PO SCH (09:32)
[2021-11-18] MEDS: POLYETHYLENE GLYCOL POWDER 17 GM PACK PO SCH (09:32)
[2021-11-18] MEDS: PANTOPRAZOLE 40 MG VIAL IV SCH (09:33)
[2021-11-18] MEDS ORDERED: NITROGLYCERIN SL 0.4 MG TABLET SL PRN (12:42)
[2021-11-18] MEDS: traMADol 50 MG TABLET PO PRN ×2 (12:46→23:42)
[2021-11-18 12:52] LABS: Bilirubin,Direct 0.45 MG/DL (0.0-0.20); Bilirubin,Indirect 0.7 MG/DL (0.0-1.0); Bilirubin,Total 1.1 MG/DL (0.20-1.00); Total Protein 7.3 G/DL (6.4-8.2)
[2021-11-18] MEDS ORDERED: MINERAL OIL ENEMA 133 ML BOTTLE RECTAL ONE (13:06)
[2021-11-18] MEDS ORDERED: ZINC OXIDE PASTE 113 GM TUBE TOP PRN (14:25)
[2021-11-18] MEDS: BACLOFEN 10 MG TABLET PO PRN (16:23)
[2021-11-18] MEDS: MORPHINE 2 MG/1 ML SYRINGE IV PRN (16:49)
[2021-11-18] MEDS: ATORVASTATIN 40 MG TABLET PO SCH (20:57)
[2021-11-19] MEDS: PIPERACILLIN/TAZOBACTAM 3,375 MG in SODIUM CHLORIDE 0.9% 100 ML IV SCH ×2 (01:58→16:26)
[2021-11-19 05:29] LABS: Basophils % 0.2 % (0.0-0.8); Eosinophils # 0.2 10*3/uL (0.0-0.87); Eosinophils % 2.8 % (0.00-10.9); Hematocrit 32.3 VOL% (35.7-47.0); Hemoglobin 10.1 GM/DL (12.0-16.0); Immature Granulocytes % 0.7 %; Immature Granulocytes Absolute 0.04 #; Lymphocytes # 1.6 10*3/uL (1.4-4.0); Lymphocytes % 28.8 % (21.3-54.2); Mean Corpuscular HGB Conc 31.3 GM/DL (32-36); Mean Corpuscular Volume 102.9 FL (87-102); Mean Platelet Volume 11.9 FL (9.6-12.0); Monocytes # 1.2 10*3/uL (0.11-0.8); Monocytes % 21.9 % (1.7-12.7); Neutrophils % 45.6 % (38.7-73.9); Platelet Count 99 T/CUMM (130-400); Red Blood Count 3.14 MC/CUMM (3.8-5.5); White Blood Count 5.7 T/CUMM (4-12)
[2021-11-19 05:47] LABS: Calcium 8.7 MG/DL (8.5-10.1); Osmolality,Calculated 274.8 MOS/KG (273-304); Potassium 3.7 MMOL/L (3.5-5.1)
[2021-11-19 06:02] LABS: Eosinophils 4 % (0-10); Lymphocytes 33 % (20-55); Total Cells Counted 100
[2021-11-19 06:03] LABS: Hypochromia 1+; Microcytosis 1+
[2021-11-19] MEDS: MORPHINE 2 MG/1 ML SYRINGE IV PRN ×2 (07:11→19:56)
[2021-11-19] MEDS: FUROSEMIDE 40 MG TABLET PO SCH (08:05)
[2021-11-19] MEDS: ASPIRIN CHEW 81 MG TABLET PO SCH (08:05)
[2021-11-19] MEDS: LACTATED RINGERS 1,000 ML IV SCH (08:05)
[2021-11-19] MEDS: POLYETHYLENE GLYCOL POWDER 17 GM PACK PO SCH (08:05)
[2021-11-19] MEDS: carvediloL 12.5 MG TABLET PO SCH ×2 (08:05→16:29)
[2021-11-19] MEDS: PANTOPRAZOLE 40 MG VIAL IV SCH (08:05)
[2021-11-19] MEDS ORDERED: SPIRONOLACTONE 25 MG TABLET PO SCH (09:00)
[2021-11-19] MEDS ORDERED: propofoL 200 MG/20 ML VIAL IV ONE (11:59)
[2021-11-19] MEDS ORDERED: LIDOCAINE 2% 5 ML VIAL ONE (11:59)
[2021-11-19] MEDS ORDERED: PHENYLEPHRINE 1 MG/10 ML SYRINGE IV ONE (12:11)
[2021-11-19] MEDS: ATORVASTATIN 40 MG TABLET PO SCH (22:11)
[2021-11-20] MEDS: PIPERACILLIN/TAZOBACTAM 3,375 MG in SODIUM CHLORIDE 0.9% 100 ML IV SCH ×2 (02:56→15:16)
[2021-11-20 05:12] LABS: Calcium 8.7 MG/DL (8.5-10.1); Osmolality,Calculated 275.5 MOS/KG (273-304); Potassium 4.1 MMOL/L (3.5-5.1)
[2021-11-20 05:13] LABS: Basophils % 0.4 % (0.0-0.8); Eosinophils # 0.2 10*3/uL (0.0-0.87); Eosinophils % 3.3 % (0.00-10.9); Hemoglobin 10.4 GM/DL (12.0-16.0); Immature Granulocytes % 0.2 %; Immature Granulocytes Absolute 0.01 #; Lymphocytes # 1.8 10*3/uL (1.4-4.0); Lymphocytes % 36.9 % (21.3-54.2); Mean Corpuscular HGB Conc 30.6 GM/DL (32-36); Mean Corpuscular Volume 105.6 FL (87-102); Mean Platelet Volume 12.2 FL (9.6-12.0); Monocytes # 1.1 10*3/uL (0.11-0.8); Neutrophils % 36.2 % (38.7-73.9); Platelet Count 97 T/CUMM (130-400); Red Blood Count 3.22 MC/CUMM (3.8-5.5); Red Cell Distribution Width 16.9 % (9.3-17.3); White Blood Count 4.8 T/CUMM (4-12)
[2021-11-20 05:43] LABS: Eosinophils 5 % (0-10); Lymphocytes 45 % (20-55); Total Cells Counted 100
[2021-11-20 05:44] LABS: Hypochromia 1+; Microcytosis 1+; Ovalocytes Few
[2021-11-20 05:45] LABS: Platelet Estimate Decreased
[2021-11-20] MEDS: MORPHINE 2 MG/1 ML SYRINGE IV PRN ×2 (08:57→19:27)
[2021-11-20] MEDS: PANTOPRAZOLE 40 MG VIAL IV SCH (09:07)
[2021-11-20] MEDS: carvediloL 12.5 MG TABLET PO SCH ×2 (09:50→16:46)
[2021-11-20] MEDS: FUROSEMIDE 40 MG TABLET PO SCH (09:50)
[2021-11-20] MEDS: POLYETHYLENE GLYCOL POWDER 17 GM PACK PO SCH (09:50)
[2021-11-20] MEDS: ASPIRIN CHEW 81 MG TABLET PO SCH (09:50)
[2021-11-20] MEDS: LIDOCAINE 5% PATCH TRANSDERM SCH (10:00)
[2021-11-20] MEDS: LACTATED RINGERS 1,000 ML IV SCH (10:19)
[2021-11-20] MEDS: BACLOFEN 10 MG TABLET PO PRN (19:22)
[2021-11-20] MEDS: ATORVASTATIN 40 MG TABLET PO SCH (20:36)
[2021-11-20] MEDS: traMADol 50 MG TABLET PO PRN (22:10)
[2021-11-21] MEDS: MORPHINE 2 MG/1 ML SYRINGE IV PRN ×2 (00:56→06:35)
[2021-11-21] MEDS: PIPERACILLIN/TAZOBACTAM 3,375 MG in SODIUM CHLORIDE 0.9% 100 ML IV SCH (02:18)
[2021-11-21 05:41] LABS: Basophils % 0.2 % (0.0-0.8); Eosinophils # 0.1 10*3/uL (0.0-0.87); Eosinophils % 2.1 % (0.00-10.9); Hematocrit 33.6 VOL% (35.7-47.0); Hemoglobin 10.6 GM/DL (12.0-16.0); Immature Granulocytes % 0.6 %; Immature Granulocytes Absolute 0.03 #; Lymphocytes % 37.5 % (21.3-54.2); Mean Corpuscular HGB Conc 31.5 GM/DL (32-36); Mean Corpuscular Volume 103.7 FL (87-102); Monocytes # 1.3 10*3/uL (0.11-0.8); Monocytes % 25.5 % (1.7-12.7); Neutrophils % 34.1 % (38.7-73.9); Platelet Count 96 T/CUMM (130-400); Red Blood Count 3.24 MC/CUMM (3.8-5.5); Red Cell Distribution Width 16.8 % (9.3-17.3); White Blood Count 5.3 T/CUMM (4-12)
[2021-11-21 05:57] LABS: Calcium 8.8 MG/DL (8.5-10.1); Osmolality,Calculated 283.5 MOS/KG (273-304); Potassium 3.9 MMOL/L (3.5-5.1)
[2021-11-21 06:01] LABS: Eosinophils 2 % (0-10); Lymphocytes 34 % (20-55); Nucleated Red Blood Cells 1 (0-5); Platelet Estimate Decreased; Total Cells Counted 100
[2021-11-21] MEDS: carvediloL 12.5 MG TABLET PO SCH (09:28)
[2021-11-21] MEDS: ASPIRIN CHEW 81 MG TABLET PO SCH (09:29)
[2021-11-21] MEDS: POLYETHYLENE GLYCOL POWDER 17 GM PACK PO SCH (09:29)
[2021-11-21] MEDS: FUROSEMIDE 40 MG TABLET PO SCH (09:29)
[2021-11-21] MEDS: PANTOPRAZOLE 40 MG VIAL IV SCH (09:30)
[2021-11-21] MEDS: LIDOCAINE 5% PATCH TRANSDERM SCH (09:30)
[2021-11-21] MEDS: LACTATED RINGERS 1,000 ML IV SCH (11:24)
[2021-11-21 12:23] VITALS: BP 95/48
== END 2021-11-21 12:12 | disposition home health service (06) | DRG 552 ==
LOC: N.EDINP 23:05 → N.ED 23:05 → SUATTDRO 11-16 02:11 → N.TELEN 11-16 02:29 → SUATTDRO 11-17 14:26
PROVIDERS: ADMIT Internal Medicine Geriatric Medicine; ATTEND Internal Medicine

== ENCOUNTER 2021-11-22 10:14 | Inpatient (IN) ==
[2021-11-22] MEDS ORDERED: MORPHINE 2 MG/1 ML SYRINGE IV STA (11:56)
[2021-11-22 12:46] LABS: Basophils % 0.3 % (0.0-0.8); Eosinophils # 0.1 10*3/uL (0.0-0.87); Eosinophils % 1.5 % (0.00-10.9); Hematocrit 36.9 VOL% (35.7-47.0); Hemoglobin 11.9 GM/DL (12.0-16.0); Immature Granulocytes % 0.7 %; Immature Granulocytes Absolute 0.04 #; Lymphocytes # 1.7 10*3/uL (1.4-4.0); Lymphocytes % 27.9 % (21.3-54.2); Mean Corpuscular HGB Conc 32.2 GM/DL (32-36); Mean Corpuscular Volume 100.3 FL (87-102); Mean Platelet Volume 12.3 FL (9.6-12.0); Monocytes # 1.1 10*3/uL (0.11-0.8); Monocytes % 18.1 % (1.7-12.7); Neutrophils % 51.5 % (38.7-73.9); Platelet Count 107 T/CUMM (130-400); Red Blood Count 3.68 MC/CUMM (3.8-5.5); Red Cell Distribution Width 16.7 % (9.3-17.3)
[2021-11-22 12:54] LABS: Albumin 3.4 G/DL (3.4-5.0); Bilirubin,Total 1.8 MG/DL (0.20-1.00); Calcium 9.4 MG/DL (8.5-10.1); Osmolality,Calculated 276.8 MOS/KG (273-304); Potassium 4.2 MMOL/L (3.5-5.1); Total Protein 8.3 G/DL (6.4-8.2)
[2021-11-22 13:03] LABS: Amorphous Crystals,Urine Occasional /HPF (Few); Hyaline Casts,Urine 4 /LPF (0-3); Mucus,Urine Occasional /LPF (Occasional); RBC,Urine 2 /HPF (0-4); Squamous Epithelial Cell,Urine Occasional /HPF (0-10)
[2021-11-22 13:06] LABS: Urine Appearance Cloudy (Clear); Urine Color Yellow (Yellow)
[2021-11-22 13:09] LABS: Bilirubin,Urine Small mg/dL (Negative); Blood, Urine Trace mg/dL (Negative); Glucose,Urine (UA) Negative (Negative); Ketones,Urine Trace mg/dL (Negative); Nitrite,Urine Negative (Negative); Protein,Urine 2+ mg/dL (Negative); Urine Urobilinogen 0.2 eU/dL (<2.0)
[2021-11-22 13:40] LABS: Anisocytosis 1+; Eosinophils 1 % (0-10); Hypochromia Slight; Lymphocytes 31 % (20-55); Metamyelocytes 2 %; Total Cells Counted 100
[2021-11-22 13:41] LABS: Atypical Lymphocytes Few; Platelet Estimate Adequate
[2021-11-22 13:42] LABS: Burr Cells Slight
[2021-11-22] MEDS ORDERED: DEXTROSE 10% 25 GM/250 ML BAG IV PRN (16:11)
[2021-11-22] MEDS ORDERED: GLUCAGON 1 MG VIAL IM PRN (16:11)
[2021-11-22] MEDS ORDERED: INSULIN GLARGINE 100 UNIT/ML SUBCUT PRN (16:17)
[2021-11-22] MEDS ORDERED: NITROGLYCERIN SL 0.4 MG TABLET SL PRN (16:17)
[2021-11-22] MEDS ORDERED: BACLOFEN 10 MG TABLET PO PRN (16:17)
[2021-11-22] MEDS ORDERED: HEPARIN 5,000 UNIT/1 ML VIAL SUBCUT SCH (17:00)
[2021-11-22] MEDS: INSULIN LISPRO 100 UNIT/ML SUBCUT SCH ×2 (19:35→21:30)
[2021-11-22] MEDS: DOCUSATE SODIUM 100 MG CAPSULE PO SCH (21:36)
[2021-11-22] MEDS: ATORVASTATIN 40 MG TABLET PO SCH (21:36)
[2021-11-22] MEDS: carvediloL 25 MG TABLET PO SCH (21:36)
[2021-11-22] MEDS: PANTOPRAZOLE 40 MG TABLET PO SCH (21:37)
[2021-11-23 06:33] LABS: Basophils % 0.2 % (0.0-0.8); Eosinophils # 0.2 10*3/uL (0.0-0.87); Eosinophils % 3.6 % (0.00-10.9); Hematocrit 31.5 VOL% (35.7-47.0); Immature Granulocytes % 0.2 %; Immature Granulocytes Absolute 0.01 #; Lymphocytes # 1.6 10*3/uL (1.4-4.0); Lymphocytes % 36.8 % (21.3-54.2); Mean Corpuscular HGB Conc 31.7 GM/DL (32-36); Mean Corpuscular Volume 101.6 FL (87-102); Mean Platelet Volume 12.2 FL (9.6-12.0); Monocytes % 22.6 % (1.7-12.7); Neutrophils % 36.6 % (38.7-73.9); Platelet Count 96 T/CUMM (130-400); White Blood Count 4.4 T/CUMM (4-12)
[2021-11-23 06:45] LABS: Calcium 9.1 MG/DL (8.5-10.1); Osmolality,Calculated 278.4 MOS/KG (273-304); Potassium 3.7 MMOL/L (3.5-5.1)
[2021-11-23 07:09] LABS: Anisocytosis 1+; Band Neutrophils 2 % (0-10); Eosinophils 1 % (0-10); Lymphocytes 34 % (20-55); Platelet Estimate Decreased; Smudge Cells 1+; Total Cells Counted 100
[2021-11-23 07:10] LABS: Basophilic Stippling Slight; Macrocytosis 1+; Ovalocytes Few
[2021-11-23] MEDS ORDERED: PANTOPRAZOLE 40 MG TABLET PO SCH (09:00)
[2021-11-23] MEDS: FUROSEMIDE 40 MG TABLET PO SCH (13:22)
[2021-11-23] MEDS: PANTOPRAZOLE 40 MG TABLET PO SCH ×2 (13:22→20:39)
[2021-11-23] MEDS: ASPIRIN CHEW 81 MG TABLET PO SCH (13:22)
[2021-11-23] MEDS: DOCUSATE SODIUM 100 MG CAPSULE PO SCH ×2 (13:22→20:40)
[2021-11-23] MEDS: carvediloL 25 MG TABLET PO SCH ×2 (13:23→20:39)
[2021-11-23] MEDS: SPIRONOLACTONE 25 MG TABLET PO SCH (13:23)
[2021-11-23] MEDS: LIDOCAINE 5% PATCH TRANSDERM SCH (13:27)
[2021-11-23] MEDS ORDERED: MORPHINE 2 MG/1 ML SYRINGE IV PRN (13:49)
[2021-11-23] MEDS ORDERED: MORPHINE 2 MG/1 ML SYRINGE IM PRN (13:49)
[2021-11-23] MEDS: INSULIN LISPRO 100 UNIT/ML SUBCUT SCH ×4 (14:57→20:32)
[2021-11-23] MEDS: fentaNYL 12 MCG/HR PATCH TRANSDERM SCH (15:10)
[2021-11-23] MEDS: ATORVASTATIN 40 MG TABLET PO SCH (20:39)
[2021-11-23] MEDS ORDERED: SODIUM CHLORIDE 0.9% 500 ML IV ONE (23:02)
[2021-11-24 09:06] LABS: Calcium 8.7 MG/DL (8.5-10.1); Osmolality,Calculated 281.5 MOS/KG (273-304); Potassium 4.2 MMOL/L (3.5-5.1)
[2021-11-24] MEDS: INSULIN LISPRO 100 UNIT/ML SUBCUT SCH ×4 (10:23→23:10)
[2021-11-24] MEDS: ASPIRIN CHEW 81 MG TABLET PO SCH (10:29)
[2021-11-24] MEDS: PANTOPRAZOLE 40 MG TABLET PO SCH ×2 (10:29→20:29)
[2021-11-24] MEDS: carvediloL 25 MG TABLET PO SCH ×2 (10:29→20:29)
[2021-11-24] MEDS: DOCUSATE SODIUM 100 MG CAPSULE PO SCH ×2 (10:29→20:29)
[2021-11-24] MEDS: DEXTROSE 5% NACL 0.45% 1,000 ML IV SCH ×2 (10:30→23:12)
[2021-11-24] MEDS: SPIRONOLACTONE 25 MG TABLET PO SCH (10:30)
[2021-11-24] MEDS: FUROSEMIDE 40 MG TABLET PO SCH (10:35)
[2021-11-24] MEDS: LIDOCAINE 5% PATCH TRANSDERM SCH (10:36)
[2021-11-24] MEDS: ATORVASTATIN 40 MG TABLET PO SCH (20:29)
[2021-11-25 05:38] LABS: Basophils % 0.2 % (0.0-0.8); Eosinophils # 0.2 10*3/uL (0.0-0.87); Eosinophils % 3.8 % (0.00-10.9); Hematocrit 31.3 VOL% (35.7-47.0); Hemoglobin 9.9 GM/DL (12.0-16.0); Immature Granulocytes % 0.5 %; Immature Granulocytes Absolute 0.02 #; Lymphocytes # 1.7 10*3/uL (1.4-4.0); Lymphocytes % 39.5 % (21.3-54.2); Mean Corpuscular HGB Conc 31.6 GM/DL (32-36); Mean Corpuscular Volume 101.3 FL (87-102); Mean Platelet Volume 11.8 FL (9.6-12.0); Monocytes # 0.9 10*3/uL (0.11-0.8); Monocytes % 20.2 % (1.7-12.7); Neutrophils % 35.8 % (38.7-73.9); Platelet Count 103 T/CUMM (130-400); Red Blood Count 3.09 MC/CUMM (3.8-5.5); Red Cell Distribution Width 17.1 % (9.3-17.3); White Blood Count 4.2 T/CUMM (4-12)
[2021-11-25 05:44] LABS: Lymphocytes 39 % (20-55); Total Cells Counted 100
[2021-11-25 05:45] LABS: Macrocytosis 1+; Ovalocytes Few
[2021-11-25 05:46] LABS: Platelet Estimate Decreased
[2021-11-25 06:06] LABS: Calcium 8.9 MG/DL (8.5-10.1); Potassium 4.2 MMOL/L (3.5-5.1)
[2021-11-25] MEDS: INSULIN LISPRO 100 UNIT/ML SUBCUT SCH ×4 (07:29→21:42)
[2021-11-25] MEDS: DOCUSATE SODIUM 100 MG CAPSULE PO SCH ×2 (08:37→21:41)
[2021-11-25] MEDS: ASPIRIN CHEW 81 MG TABLET PO SCH (08:37)
[2021-11-25] MEDS: SPIRONOLACTONE 25 MG TABLET PO SCH (08:37)
[2021-11-25] MEDS: carvediloL 25 MG TABLET PO SCH ×2 (08:37→16:00)
[2021-11-25] MEDS: FUROSEMIDE 40 MG TABLET PO SCH (08:37)
[2021-11-25] MEDS: PANTOPRAZOLE 40 MG TABLET PO SCH ×2 (08:37→21:39)
[2021-11-25] MEDS: LIDOCAINE 5% PATCH TRANSDERM SCH (08:39)
[2021-11-25] MEDS ORDERED: TUBERCULIN SKIN TEST 0.1 ML SYRINGE INTRADERM ONE (10:00)
[2021-11-25] MEDS: DEXTROSE 5% NACL 0.45% 1,000 ML IV SCH (13:01)
[2021-11-25] MEDS: LORATADINE 10 MG TABLET PO SCH (13:02)
[2021-11-25] MEDS: ATORVASTATIN 40 MG TABLET PO SCH (21:39)
[2021-11-26] MEDS: DEXTROSE 5% NACL 0.45% 1,000 ML IV SCH ×2 (02:29→18:20)
[2021-11-26 07:29] LABS: Basophils % 0.4 % (0.0-0.8); Eosinophils # 0.1 10*3/uL (0.0-0.87); Eosinophils % 2.1 % (0.00-10.9); Hemoglobin 11.1 GM/DL (12.0-16.0); Immature Granulocytes % 0.2 %; Immature Granulocytes Absolute 0.01 #; Mean Corpuscular HGB Conc 32.6 GM/DL (32-36); Mean Corpuscular Volume 98.3 FL (87-102); Mean Platelet Volume 11.7 FL (9.6-12.0); Monocytes # 0.9 10*3/uL (0.11-0.8); Monocytes % 19.1 % (1.7-12.7); Neutrophils % 35.2 % (38.7-73.9); Platelet Count 126 T/CUMM (130-400); Red Blood Count 3.46 MC/CUMM (3.8-5.5); Red Cell Distribution Width 17.2 % (9.3-17.3); White Blood Count 4.7 T/CUMM (4-12)
[2021-11-26] MEDS: INSULIN LISPRO 100 UNIT/ML SUBCUT SCH ×4 (07:30→20:29)
[2021-11-26 08:00] LABS: Calcium 9.2 MG/DL (8.5-10.1); Potassium 4.1 MMOL/L (3.5-5.1)
[2021-11-26 08:01] LABS: Atypical Lymphocytes Few; Eosinophils 5 % (0-10); Lymphocytes 38 % (20-55); Macrocytosis 1+; Polychromasia Slight; Total Cells Counted 100
[2021-11-26 08:02] LABS: Acanthocytes Few; Platelet Estimate Adequate
[2021-11-26] MEDS: fentaNYL 12 MCG/HR PATCH TRANSDERM SCH ×3 (09:00→14:05)
[2021-11-26] MEDS: ASPIRIN CHEW 81 MG TABLET PO SCH (09:19)
[2021-11-26] MEDS: SPIRONOLACTONE 25 MG TABLET PO SCH (09:19)
[2021-11-26] MEDS: DOCUSATE SODIUM 100 MG CAPSULE PO SCH ×2 (09:19→20:26)
[2021-11-26] MEDS: LORATADINE 10 MG TABLET PO SCH (09:19)
[2021-11-26] MEDS: carvediloL 25 MG TABLET PO SCH ×2 (09:19→17:03)
[2021-11-26] MEDS: PANTOPRAZOLE 40 MG TABLET PO SCH ×2 (09:20→20:27)
[2021-11-26] MEDS: FUROSEMIDE 40 MG TABLET PO SCH (09:20)
[2021-11-26] MEDS: LIDOCAINE 5% PATCH TRANSDERM SCH (09:24)
[2021-11-26] MEDS ORDERED: LORazepam 2 MG/1 ML VIAL IV ONE (18:30)
[2021-11-26] MEDS ORDERED: MORPHINE 2 MG/1 ML SYRINGE IV ONE (18:30)
[2021-11-26] MEDS: BACLOFEN 10 MG TABLET PO SCH (20:26)
[2021-11-26] MEDS: ATORVASTATIN 40 MG TABLET PO SCH (20:27)
[2021-11-26] MEDS: MORPHINE 2 MG/1 ML SYRINGE IV PRN (20:36)
[2021-11-26] MEDS: fentaNYL 25 MCG/HR PATCH TRANSDERM SCH (21:19)
[2021-11-26] MEDS: ONDANSETRON 4 MG/2 ML VIAL IV PRN (21:20)
[2021-11-27] MEDS: ONDANSETRON 4 MG/2 ML VIAL IV PRN (04:50)
[2021-11-27] MEDS: MORPHINE 2 MG/1 ML SYRINGE IV PRN (04:50)
[2021-11-27] MEDS: DEXTROSE 5% NACL 0.45% 1,000 ML IV SCH ×2 (04:52→20:54)
[2021-11-27 05:22] LABS: Basophils % 0.2 % (0.0-0.8); Eosinophils # 0.2 10*3/uL (0.0-0.87); Eosinophils % 3.3 % (0.00-10.9); Hematocrit 35.5 VOL% (35.7-47.0); Hemoglobin 11.5 GM/DL (12.0-16.0); Immature Granulocytes % 0.4 %; Immature Granulocytes Absolute 0.02 #; Lymphocytes # 2.2 10*3/uL (1.4-4.0); Lymphocytes % 49.1 % (21.3-54.2); Mean Corpuscular HGB Conc 32.4 GM/DL (32-36); Mean Corpuscular Volume 98.9 FL (87-102); Mean Platelet Volume 11.4 FL (9.6-12.0); Monocytes % 21.4 % (1.7-12.7); Neutrophils % 25.6 % (38.7-73.9); Platelet Count 126 T/CUMM (130-400); Red Blood Count 3.59 MC/CUMM (3.8-5.5); Red Cell Distribution Width 16.9 % (9.3-17.3); White Blood Count 4.5 T/CUMM (4-12)
[2021-11-27 05:26] LABS: INR 1.4; PT Patient Result 15.6 SECS (10.5-12.0)
[2021-11-27 05:32] LABS: Calcium 8.9 MG/DL (8.5-10.1); Potassium 3.9 MMOL/L (3.5-5.1)
[2021-11-27 05:44] LABS: Eosinophils 2 % (0-10); Lymphocytes 41 % (20-55); Total Cells Counted 100
[2021-11-27 05:45] LABS: Atypical Lymphocytes Few; Platelet Estimate Adequate
[2021-11-27] MEDS: INSULIN LISPRO 100 UNIT/ML SUBCUT SCH ×4 (08:31→20:56)
[2021-11-27] MEDS: SPIRONOLACTONE 25 MG TABLET PO SCH (09:01)
[2021-11-27] MEDS: LORATADINE 10 MG TABLET PO SCH (09:01)
[2021-11-27] MEDS: carvediloL 25 MG TABLET PO SCH ×2 (09:01→17:00)
[2021-11-27] MEDS: ASPIRIN CHEW 81 MG TABLET PO SCH (09:01)
[2021-11-27] MEDS: PANTOPRAZOLE 40 MG TABLET PO SCH ×2 (09:02→20:55)
[2021-11-27] MEDS: BACLOFEN 10 MG TABLET PO SCH ×3 (09:02→20:55)
[2021-11-27] MEDS: FUROSEMIDE 40 MG TABLET PO SCH (09:02)
[2021-11-27] MEDS: DOCUSATE SODIUM 100 MG CAPSULE PO SCH ×2 (09:02→20:55)
[2021-11-27] MEDS: LIDOCAINE 5% PATCH TRANSDERM SCH (09:15)
[2021-11-27] MEDS ORDERED: MORPHINE 2 MG/1 ML SYRINGE IV ONE (13:30)
[2021-11-27] MEDS ORDERED: LORazepam 2 MG/1 ML VIAL IV ONE (13:30)
[2021-11-27] MEDS: LACTATED RINGERS 1,000 ML IV SCH (13:41)
[2021-11-27] MEDS: ATORVASTATIN 40 MG TABLET PO SCH (20:55)
[2021-11-28 06:21] LABS: Basophils % 0.2 % (0.0-0.8); Eosinophils # 0.2 10*3/uL (0.0-0.87); Eosinophils % 3.7 % (0.00-10.9); Hematocrit 34.6 VOL% (35.7-47.0); Hemoglobin 10.8 GM/DL (12.0-16.0); Immature Granulocytes % 0.2 %; Immature Granulocytes Absolute 0.01 #; Lymphocytes # 1.6 10*3/uL (1.4-4.0); Lymphocytes % 31.6 % (21.3-54.2); Mean Corpuscular HGB Conc 31.2 GM/DL (32-36); Mean Corpuscular Volume 102.4 FL (87-102); Mean Platelet Volume 11.2 FL (9.6-12.0); Monocytes # 1.3 10*3/uL (0.11-0.8); Monocytes % 25.5 % (1.7-12.7); Neutrophils % 38.8 % (38.7-73.9); Platelet Count 98 T/CUMM (130-400); Red Blood Count 3.38 MC/CUMM (3.8-5.5); Red Cell Distribution Width 17.3 % (9.3-17.3); White Blood Count 5.1 T/CUMM (4-12)
[2021-11-28 06:40] LABS: Calcium 8.9 MG/DL (8.5-10.1); Osmolality,Calculated 275.1 MOS/KG (273-304)
[2021-11-28 06:44] LABS: Eosinophils 2 % (0-10); Lymphocytes 32 % (20-55); Platelet Estimate Decreased; Total Cells Counted 100
[2021-11-28 06:45] LABS: Atypical Lymphocytes Few
[2021-11-28] MEDS: DEXTROSE 5% NACL 0.45% 1,000 ML IV SCH ×2 (07:00→22:07)
[2021-11-28] MEDS ORDERED: DEXTROSE 10% 250 ML BAG IV PRN ×2 (07:00)
[2021-11-28] MEDS: carvediloL 25 MG TABLET PO SCH ×2 (08:40→16:41)
[2021-11-28] MEDS: MORPHINE 2 MG/1 ML SYRINGE IV PRN (08:41)
[2021-11-28] MEDS: INSULIN LISPRO 100 UNIT/ML SUBCUT SCH ×4 (08:41→22:00)
[2021-11-28 10:25] LABS: Folate 12.99 NG/ML (5.38-24.0)
[2021-11-28] MEDS: SPIRONOLACTONE 25 MG TABLET PO SCH (10:27)
[2021-11-28] MEDS: LORATADINE 10 MG TABLET PO SCH (10:27)
[2021-11-28] MEDS: ASPIRIN CHEW 81 MG TABLET PO SCH (10:27)
[2021-11-28] MEDS: PANTOPRAZOLE 40 MG TABLET PO SCH ×2 (10:28→22:07)
[2021-11-28] MEDS: DOCUSATE SODIUM 100 MG CAPSULE PO SCH ×2 (10:28→21:59)
[2021-11-28] MEDS: LIDOCAINE 5% PATCH TRANSDERM SCH (10:28)
[2021-11-28] MEDS: BACLOFEN 10 MG TABLET PO SCH ×3 (10:28→22:00)
[2021-11-28] MEDS: FUROSEMIDE 40 MG TABLET PO SCH (10:28)
[2021-11-28] MEDS ORDERED: FAMOTIDINE 20 MG/2 ML VIAL IV ONE (10:52)
[2021-11-28] MEDS ORDERED: LIDOCAINE 1%/EPI INJ 20 ML VIAL ONE (10:53)
[2021-11-28] MEDS ORDERED: propofoL 200 MG/20 ML VIAL IV ONE (15:45)
[2021-11-28] MEDS ORDERED: LIDOCAINE 2% 5 ML VIAL ONE (15:45)
[2021-11-28] MEDS ORDERED: PHENYLEPHRINE 1 MG/10 ML SYRINGE IV ONE (17:10)
[2021-11-28] MEDS: ACETAMINOPHEN 325 MG TABLET PO PRN (21:59)
[2021-11-28] MEDS: ATORVASTATIN 40 MG TABLET PO SCH (22:00)
[2021-11-29] MEDS ORDERED: SODIUM CHLORIDE 0.9% 250 ML IV ONE (08:42)
[2021-11-29] MEDS ORDERED: CHOLECALCIFEROL 400 UNIT TABLET PO SCH (09:00)
[2021-11-29] MEDS: MORPHINE 2 MG/1 ML SYRINGE IV PRN ×3 (09:54→21:45)
[2021-11-29] MEDS: LIDOCAINE 5% PATCH TRANSDERM SCH (09:55)
[2021-11-29 11:51] LABS: Basophils % 0.5 % (0.0-0.8); Eosinophils # 0.1 10*3/uL (0.0-0.87); Eosinophils % 2.8 % (0.00-10.9); Hematocrit 32.7 VOL% (35.7-47.0); Hemoglobin 10.2 GM/DL (12.0-16.0); Immature Granulocytes % 0.5 %; Immature Granulocytes Absolute 0.02 #; Lymphocytes # 1.3 10*3/uL (1.4-4.0); Lymphocytes % 30.3 % (21.3-54.2); Mean Corpuscular HGB Conc 31.2 GM/DL (32-36); Mean Corpuscular Volume 100.9 FL (87-102); Mean Platelet Volume 11.1 FL (9.6-12.0); Monocytes # 0.9 10*3/uL (0.11-0.8); Monocytes % 20.6 % (1.7-12.7); Neutrophils % 45.3 % (38.7-73.9); Platelet Count 101 T/CUMM (130-400); Red Blood Count 3.24 MC/CUMM (3.8-5.5); Red Cell Distribution Width 17.2 % (9.3-17.3); White Blood Count 4.4 T/CUMM (4-12)
[2021-11-29 12:42] LABS: Eosinophils 2 % (0-10); Lymphocytes 27 % (20-55); Total Cells Counted 100
[2021-11-29 12:43] LABS: Macrocytosis Slight
[2021-11-29 12:44] LABS: Burr Cells Slight; Platelet Estimate Normal
[2021-11-29] MEDS: INSULIN LISPRO 100 UNIT/ML SUBCUT SCH ×4 (16:01→21:42)
[2021-11-29] MEDS: SPIRONOLACTONE 25 MG TABLET PO SCH (16:03)
[2021-11-29] MEDS: carvediloL 25 MG TABLET PO SCH (16:03)
[2021-11-29] MEDS: LORATADINE 10 MG TABLET PO SCH (16:03)
[2021-11-29] MEDS: ASPIRIN CHEW 81 MG TABLET PO SCH (16:03)
[2021-11-29] MEDS: DOCUSATE SODIUM 100 MG CAPSULE PO SCH ×2 (16:04→20:13)
[2021-11-29] MEDS: BACLOFEN 10 MG TABLET PO SCH ×2 (16:04→20:13)
[2021-11-29] MEDS: PANTOPRAZOLE 40 MG TABLET PO SCH ×2 (16:05→20:14)
[2021-11-29] MEDS: CHOLECALCIFEROL 5,000 UNIT TABLET PO SCH (16:05)
[2021-11-29] MEDS: ATORVASTATIN 40 MG TABLET PO SCH (20:14)
[2021-11-29] MEDS: DEXTROSE 5% NACL 0.45% 1,000 ML IV SCH (21:32)
[2021-11-30 05:56] LABS: Basophils % 0.4 % (0.0-0.8); Eosinophils # 0.2 10*3/uL (0.0-0.87); Eosinophils % 4.1 % (0.00-10.9); Hematocrit 33.1 VOL% (35.7-47.0); Hemoglobin 10.7 GM/DL (12.0-16.0); Immature Granulocytes % 0.4 %; Immature Granulocytes Absolute 0.02 #; Lymphocytes # 1.8 10*3/uL (1.4-4.0); Lymphocytes % 36.3 % (21.3-54.2); Mean Corpuscular HGB Conc 32.3 GM/DL (32-36); Mean Corpuscular Volume 99.1 FL (87-102); Mean Platelet Volume 11.6 FL (9.6-12.0); Monocytes % 20.2 % (1.7-12.7); Neutrophils % 38.6 % (38.7-73.9); Platelet Count 107 T/CUMM (130-400); Red Blood Count 3.34 MC/CUMM (3.8-5.5); Red Cell Distribution Width 17.1 % (9.3-17.3); White Blood Count 4.9 T/CUMM (4-12)
[2021-11-30 06:16] LABS: Eosinophils 3 % (0-10); Lymphocytes 26 % (20-55); Total Cells Counted 100
[2021-11-30 06:17] LABS: Platelet Estimate Adequate
[2021-11-30] MEDS: fentaNYL 25 MCG/HR PATCH TRANSDERM SCH (06:53)
[2021-11-30] MEDS: carvediloL 25 MG TABLET PO SCH ×3 (06:54→16:39)
[2021-11-30] MEDS: DEXTROSE 5% NACL 0.45% 1,000 ML IV SCH ×2 (07:48→12:04)
[2021-11-30] MEDS: INSULIN LISPRO 100 UNIT/ML SUBCUT SCH ×4 (07:48→20:02)
[2021-11-30] MEDS: LACTATED RINGERS 1,000 ML IV SCH ×2 (08:16→08:17)
[2021-11-30] MEDS: DOCUSATE SODIUM 100 MG CAPSULE PO SCH ×2 (08:17→22:43)
[2021-11-30] MEDS: ASPIRIN CHEW 81 MG TABLET PO SCH (08:17)
[2021-11-30] MEDS: PANTOPRAZOLE 40 MG TABLET PO SCH ×2 (08:17→20:03)
[2021-11-30] MEDS: BACLOFEN 10 MG TABLET PO SCH ×3 (08:17→20:02)
[2021-11-30] MEDS: LORATADINE 10 MG TABLET PO SCH (08:17)
[2021-11-30] MEDS: ASCORBIC ACID 500 MG TABLET PO SCH (08:17)
[2021-11-30] MEDS: FERROUS SULFATE 325 MG TABLET PO SCH (08:17)
[2021-11-30] MEDS: SPIRONOLACTONE 25 MG TABLET PO SCH (08:17)
[2021-11-30] MEDS: CHOLECALCIFEROL 5,000 UNIT TABLET PO SCH (08:18)
[2021-11-30] MEDS: LIDOCAINE 5% PATCH TRANSDERM SCH (09:35)
[2021-11-30] MEDS: MORPHINE 2 MG/1 ML SYRINGE IV PRN ×3 (10:03→22:55)
[2021-11-30] MEDS: ONDANSETRON 4 MG/2 ML VIAL IV PRN ×3 (10:07→22:54)
[2021-11-30] MEDS: ACETAMINOPHEN 325 MG TABLET PO PRN (15:22)
[2021-11-30] MEDS: ATORVASTATIN 40 MG TABLET PO SCH (20:03)
[2021-12-01] MEDS: LORazepam 2 MG/1 ML VIAL IV PRN ×3 (01:27→17:12)
[2021-12-01] MEDS: DEXTROSE 5% NACL 0.45% 1,000 ML IV SCH ×2 (02:45→15:44)
[2021-12-01] MEDS: MORPHINE 2 MG/1 ML SYRINGE IV PRN ×3 (05:24→20:30)
[2021-12-01 05:30] LABS: Basophils % 0.3 % (0.0-0.8); Eosinophils # 0.2 10*3/uL (0.0-0.87); Eosinophils % 2.9 % (0.00-10.9); Hematocrit 32.7 VOL% (35.7-47.0); Hemoglobin 10.5 GM/DL (12.0-16.0); Immature Granulocytes % 0.3 %; Immature Granulocytes Absolute 0.02 #; Lymphocytes # 2.3 10*3/uL (1.4-4.0); Lymphocytes % 35.8 % (21.3-54.2); Mean Corpuscular HGB Conc 32.1 GM/DL (32-36); Mean Corpuscular Volume 100.3 FL (87-102); Mean Platelet Volume 11.5 FL (9.6-12.0); Monocytes # 1.8 10*3/uL (0.11-0.8); Monocytes % 28.2 % (1.7-12.7); Neutrophils % 32.5 % (38.7-73.9); Red Blood Count 3.26 MC/CUMM (3.8-5.5); Red Cell Distribution Width 17.2 % (9.3-17.3); White Blood Count 6.3 T/CUMM (4-12)
[2021-12-01 05:32] LABS: Platelet Count 99 T/CUMM (130-400)
[2021-12-01 05:48] LABS: Calcium 8.6 MG/DL (8.5-10.1); Osmolality,Calculated 273.2 MOS/KG (273-304); Potassium 3.8 MMOL/L (3.5-5.1)
[2021-12-01 05:56] LABS: Atypical Lymphocytes Few; Eosinophils 3 % (0-10); Lymphocytes 33 % (20-55); Total Cells Counted 100
[2021-12-01 05:57] LABS: Acanthocytes Few; Burr Cells Slight; Macrocytosis 1+
[2021-12-01 05:58] LABS: Ovalocytes Slight; Platelet Estimate Decreased
[2021-12-01] MEDS: LIDOCAINE 5% PATCH TRANSDERM SCH (08:50)
[2021-12-01] MEDS: carvediloL 25 MG TABLET PO SCH ×2 (10:54→16:50)
[2021-12-01] MEDS: LACTATED RINGERS 1,000 ML IV SCH (10:54)
[2021-12-01] MEDS: FERROUS SULFATE 325 MG TABLET PO SCH (10:54)
[2021-12-01] MEDS: INSULIN LISPRO 100 UNIT/ML SUBCUT SCH ×4 (10:54→21:00)
[2021-12-01] MEDS: ASCORBIC ACID 500 MG TABLET PO SCH (10:55)
[2021-12-01] MEDS: LORATADINE 10 MG TABLET PO SCH (10:55)
[2021-12-01] MEDS: SPIRONOLACTONE 25 MG TABLET PO SCH (10:55)
[2021-12-01] MEDS: ASPIRIN CHEW 81 MG TABLET PO SCH (10:55)
[2021-12-01] MEDS: DOCUSATE SODIUM 100 MG CAPSULE PO SCH (10:55)
[2021-12-01] MEDS: BACLOFEN 10 MG TABLET PO SCH ×2 (10:55→14:44)
[2021-12-01] MEDS: CHOLECALCIFEROL 5,000 UNIT TABLET PO SCH (10:55)
[2021-12-01] MEDS: PANTOPRAZOLE 40 MG TABLET PO SCH (10:55)
[2021-12-02] MEDS: DOCUSATE SODIUM 100 MG CAPSULE PO SCH ×3 (00:44→22:12)
[2021-12-02] MEDS: BACLOFEN 10 MG TABLET PO SCH ×4 (00:45→22:13)
[2021-12-02] MEDS: PANTOPRAZOLE 40 MG TABLET PO SCH ×3 (00:45→22:13)
[2021-12-02] MEDS: ATORVASTATIN 40 MG TABLET PO SCH (00:45)
[2021-12-02] MEDS: LORazepam 2 MG/1 ML VIAL IV PRN (01:28)
[2021-12-02] MEDS: MORPHINE 2 MG/1 ML SYRINGE IV PRN (04:04)
[2021-12-02] MEDS: DEXTROSE 5% NACL 0.45% 1,000 ML IV SCH (04:06)
[2021-12-02 05:55] LABS: Basophils % 0.2 % (0.0-0.8); Eosinophils # 0.1 10*3/uL (0.0-0.87); Eosinophils % 0.5 % (0.00-10.9); Hematocrit 32.7 VOL% (35.7-47.0); Hemoglobin 10.5 GM/DL (12.0-16.0); Immature Granulocytes % 1.1 %; Immature Granulocytes Absolute 0.11 #; Lymphocytes % 10.1 % (21.3-54.2); Mean Corpuscular HGB Conc 32.1 GM/DL (32-36); Mean Corpuscular Volume 97.9 FL (87-102); Mean Platelet Volume 11.5 FL (9.6-12.0); Monocytes % 20.5 % (1.7-12.7); Neutrophils % 67.6 % (38.7-73.9); Platelet Count 112 T/CUMM (130-400); Red Blood Count 3.34 MC/CUMM (3.8-5.5); Red Cell Distribution Width 17.2 % (9.3-17.3); White Blood Count 9.7 T/CUMM (4-12)
[2021-12-02 06:09] LABS: Calcium 7.9 MG/DL (8.5-10.1); Osmolality,Calculated 274.2 MOS/KG (273-304); Potassium 3.9 MMOL/L (3.5-5.1)
[2021-12-02 06:21] LABS: Eosinophils 1 % (0-10); Lymphocytes 9 % (20-55); Total Cells Counted 100
[2021-12-02 06:22] LABS: Acanthocytes Few
[2021-12-02] MEDS ORDERED: SODIUM CHLORIDE 0.9% 1,000 ML IV SCH (08:00)
[2021-12-02] MEDS ORDERED: MAGNESIUM SULF RIDER 2 GM/50 ML PREMIX IV ONE ×2 (08:00→18:30)
[2021-12-02] MEDS: INSULIN LISPRO 100 UNIT/ML SUBCUT SCH ×4 (09:00→22:12)
[2021-12-02] MEDS ORDERED: cefTRIAXone 2,000 MG in SODIUM CHLORIDE 0.9% 100 ML IV SCH (09:00)
[2021-12-02] MEDS ORDERED: LACTATED RINGERS 1,000 ML IV SCH (10:00)
[2021-12-02 10:15] LABS: INR 1.5; PT Patient Result 16.6 SECS (10.5-12.0)
[2021-12-02] MEDS ORDERED: NALOXONE 0.4 MG/ML VIAL IV PRN (10:26)
[2021-12-02] MEDS ORDERED: LORazepam 2 MG/1 ML VIAL IV PRN (10:29)
[2021-12-02] MEDS: LACTATED RINGERS 1,000 ML IV SCH (11:09)
[2021-12-02] MEDS ORDERED: ETOMIDATE 20 MG/10 ML VIAL IV ONE (12:07)
[2021-12-02] MEDS ORDERED: LIDOCAINE 2% 5 ML VIAL ONE (12:07)
[2021-12-02] MEDS ORDERED: PHENYLEPHRINE 1 MG/10 ML SYRINGE IV ONE (12:22)
[2021-12-02] MEDS: ASPIRIN CHEW 81 MG TABLET PO SCH (13:36)
[2021-12-02] MEDS: FERROUS SULFATE 325 MG TABLET PO SCH (13:36)
[2021-12-02] MEDS: carvediloL 25 MG TABLET PO SCH ×2 (13:36→19:23)
[2021-12-02] MEDS: ASCORBIC ACID 500 MG TABLET PO SCH (13:37)
[2021-12-02] MEDS: LORATADINE 10 MG TABLET PO SCH (13:37)
[2021-12-02] MEDS: CHOLECALCIFEROL 5,000 UNIT TABLET PO SCH (13:38)
[2021-12-02] MEDS: LIDOCAINE 5% PATCH TRANSDERM SCH (16:12)
[2021-12-02] MEDS: fentaNYL 25 MCG/HR PATCH TRANSDERM SCH (17:14)
[2021-12-02 22:07] VITALS: BP 104/44
== END 2021-12-03 00:34 | disposition expired | DRG 552 ==
LOC: N.EDINP 10:14 → N.ED 10:14 → SUATTDRO 16:11 → OBSVTOIN 16:11 → INTOOBSV 16:11 → N.EDINP 18:43 → N.3E 18:59
PROVIDERS: ADMIT Internal Medicine; ATTEND Internal Medicine
PROC: EGDWPEG (ICD-10-PCS; 2021-12-02 11:00)